=== PATIENT | male | born 1940 | race Caucasian/White ===

== ENCOUNTER 2019-05-29 18:15 | Inpatient (IN) | payer BC, OTHER ==
--- NOTE | 2019-05-29 18:51 | PDOC ---
History of Present Illness - General Chief Complaint: Altered Mental Status Stated Complaint: AMS Time Seen by Provider: 05/29/19 18:51 History Source: Patient, Family Exam Limitations: Clinical Condition, Dementia - History of Present Illness Initial Comments: 79 year old male with PMH dementia (baseline A&Ox0, able to recognize family members), HTN, HLD, NIDDM, CVA BIBA to ED for increasing AMS x2-3 days. at bedside reported that pt has been increasingly aggressive, unable to recognize her, unable to answer questions appropriately the last 2-3 days. reported pt became so aggressive tonight that she had to call EMS, when EMS arrived he was physically aggressive, was given Ketamine 250 mg IM. Pt is alert, oriented x0, unable to answer questions appropriately, unable to follow commands. Family at bedside reported no recent illness, cough, runny nose, sore throat, abdominal pain, nausea, vomiting, diarrhea, constipation. PCP: Tarsha FELIZ - unable to complete 2/2 pt's dementia/AMS PE Constitutional: Well-nourished, Well-developed, appearing stated age. HEENT: head is normocephalic, atraumatic. EOMI. PERRLA. Neck: supple. Full ROM. no midline c-spine tenderness to palpation. no step offs. Cardiovascular: regular heart rhythm. no murmurs. no pericardial friction rub. Respiratory: clear to auscultation bilaterally. no crackles, rhonchi or wheezing. no stridor. Gastrointestinal: soft, flat. tenderness to palpation of suprapubic area. normal bowel sounds. no rebound, guarding, masses. Back: no midline tenderness to palpation of T-spine or L-spine. No step offs. Extremities: peripheral pulses intact. no lower extremity edema. Neurological: CN 2-12 grossly intact. moves all four extremities. Psych: awake, alert, oriented x0. does not follow commands. does not answer questions appropriately. Past History - Past Medical History Allergies/Adverse Reactions: Allergies Allergy/AdvReac Type Severity Reaction Status Date / Time No Known Allergies Allergy Verified 05/29/19 18:41 Home Medications: Ambulatory Orders Glimepiride [Amaryl -] 4 mg PO BID 05/29/19 Levothyroxine [Synthroid -] 50 mcg PO DAILY 05/29/19 Lisinopril [Prinivil] 10 mg PO DAILY 05/29/19 Omeprazole 40 mg PO DAILY 05/29/19 Quetiapine Fumarate [Seroquel -] 25 mg PO BID 05/29/19 Simvastatin [Zocor] 20 mg PO HS 05/29/19 Vit B1 Mn/B2/B3/B5/B6/B12/C/FA [B Complex with Vitamin C Tab] 1 each PO DAILY metFORMIN HCL [Metformin ER Gastric] 500 mg PO BID 05/29/19 - Psycho Social/Smoking Cessation Hx Smoking History: Smoker current status UNK Have you smoked in the past 12 months: No Information on smoking cessation initiated: No Hx Alcohol Use: No Drug/Substance Use Hx: No *Physical Exam - Vital Signs Last Vital Signs Temp Pulse Resp BP Pulse Ox 100.1 F H 112 H 18 135/76 96 05/29/19 18:42 05/29/19 18:42 05/29/19 18:42 05/29/19 18:42 05/29/19 18:42 ED Treatment Course - LABORATORY CBC & Chemistry Diagram: 05/29/19 19:30 05/29/19 19:30 Medical Decision Making - Medical Decision Making 79 year old male with above PMH presented to ED via ambulance for increasing altered mental status x2-3 days. Initial Vital Signs Temp Pulse Resp BP Pulse Ox 100.1 F H 112 H 18 135/76 96 05/29/19 18:42 05/29/19 18:42 05/29/19 18:42 05/29/19 18:42 05/29/19 18:42 Febrile. Tachycardic. No tachypnea. Mild hypertension. No hypoxia on room air. EKG performed at 1848: rate 102, regular rhythm, normal axis, normal intervals, flat T in AVL, no other ST changes. -No prior to compare Imaging ordered: CXR, CT head Medications ordered: normal saline bolus 1000 cc once, tylenol IV 05/29/19 20:07 CBC WBC 18.3 K/mm3 (4.0-10.0) H 05/29/19 19:30 RBC 3.83 M/mm3 (4.00-5.60) L 05/29/19 19:30 Hgb 11.4 GM/dL (11.7-16.9) L 05/29/19 19:30 Hct 34.4 % (35.4-49) L 05/29/19 19:30 MCV 89.8 fl (80-96) 05/29/19 19:30 MCH 29.7 pg (25.7-33.7) 05/29/19 19:30 MCHC 33.1 g/dl (32.0-35.9) 05/29/19 19:30 RDW 13.4 % (11.9-15.9) 05/29/19 19:30 Plt Count 300 K/MM3 (134-434) 05/29/19 19:30 MPV 9.3 fl (7.5-11.1) 05/29/19 19:30 Absolute Neuts (auto) 15.6 K/mm3 (1.5-8.0) H 05/29/19 19:30 Neutrophils % 85.2 % (42.8-82.8) H 05/29/19 19:30 Lymphocytes % 7.5 % (8-40) L 05/29/19 19:30 Monocytes % 6.7 % (3.8-10.2) 05/29/19 19:30 Eosinophils % 0.2 % (0-4.5) 05/29/19 19:30 Basophils % 0.4 % (0-2.0) 05/29/19 19: Nucleated RBC % 0 % (0-0) 05/29/19 19:30 Leukocytosis with left shift. Normocytic anemia. 05/29/19 19:30 VBG pH 7.40 POC VBG pCO2 41.7 POC VBG pO2 < 49 H VBG HCO3 25.3 VBG O2 Sat (Luciana) 80.4 H VBG Base Excess 0.9 No acidosis. 05/29/19 20:35 CMP Sodium 137 mmol/L (136-145) 05/29/19 19:30 Potassium 4.3 mmol/L (3.5-5.1) 05/29/19 19:30 Chloride 106 mmol/L (98-107) 05/29/19 19:30 Carbon Dioxide 26 mmol/L (21-32) 05/29/19 19:30 Anion Gap 5 MMOL/L (8-16) L 05/29/19 19:30 BUN 16.6 mg/dL (7-18) 05/29/19 19:30 Creatinine 1.0 mg/dL (0.55-1.3) 05/29/19 19:30 Est GFR (CKD-EPI)AfAm 82.60 05/29/19 19:30 Est GFR (CKD-EPI)NonAf 71.27 05/29/19 19:30 Random Glucose 79 mg/dL (74-106) 05/29/19 19:30 Lactic Acid 1.2 mmol/L (0.4-2.0) 05/29/19 19:30 Calcium 8.2 mg/dL (8.5-10.1) L 05/29/19 19:30 Total Bilirubin 0.6 mg/dL (0.2-1) 05/29/19 19:30 AST 11 U/L (15-37) L 05/29/19 19:30 ALT 14 U/L (13-61) 05/29/19 19:30 Alkaline Phosphatase 53 U/L (45-117) 05/29/19 19:30 Total Protein 5.8 g/dl (6.4-8.2) L 05/29/19 19:30 Albumin 3.8 g/dl (3.4-5.0) 05/29/19 19:30 No electrolyte abnormalities. No transaminitis. No ANDRE. No lactic acidosis. Acetaminophen level negative. ETOH level negative. Pending CT and UA. CXR shows no infiltrate by my view. -Pending official report 05/29/19 20:58 Pt became agitated at CT, removed his IV, was throwing things around the room, would not follow the son's commands. Pt returned to ED, will replace IV. Medications ordered: Haldol 5 mg IM once, normal saline bolus 1000 cc once 05/29/19 23:31 Pt became increasingly agitated, had not received IM Haldol. Medications given: Haldol 5 mg IM, ativan 2 mg IM once IV placed into left upper arm. CT head performed. CMP Sodium 137 mmol/L (136-145) 05/29/19 19:30 Potassium 4.3 mmol/L (3.5-5.1) 05/29/19 19:30 Chloride 106 mmol/L (98-107) 05/29/19 19:30 Carbon Dioxide 26 mmol/L (21-32) 05/29/19 19:30 Anion Gap 5 MMOL/L (8-16) L 05/29/19: BUN 16.6 mg/dL (7-18) 05/29/19: Creatinine 1.0 mg/dL (0.55-1.3) 05/29/19: Est GFR (CKD-EPI)AfAm 82.60 05/29/19: Est GFR (CKD-EPI)NonAf 71.27 05/29/19: Random Glucose 79 mg/dL (74-106) 05/29/19: Lactic Acid 1.2 mmol/L (0.4-2.0) 05/29/19: Calcium 8.2 mg/dL (8.5-10.1) L 05/29/19 Total Bilirubin 0.6 mg/dL (0.2-1) 05/29/19 AST 11 U/L (15-37) L 05/29/19: ALT 14 U/L (13-61) 05/29/19 Alkaline Phosphatase 53 U/L (45-117) 05/29/19: Troponin I < 0.02 ng/ml (0.00-0.05) 05/29/19 Total Protein 5.8 g/dl (6.4-8.2) L 05/29/19: Albumin 3.8 g/dl (3.4-5.0) 05/29/19: TSH 3.09 uIU/ml (0.358-3.74) 05/29/19: No electrolyte abnormalities. No ANDRE. No transamintiis. No lactic acidosis. Troponin wnl. TSH wnl. Urine Test Results Urine Color Yellow 05/29/19: Urine Appearance Clear 05/29/19: Urine pH 5.5 (5.0-8.0) 05/29/19: Ur Specific [place] 1.011 (1.010-1.035) 05/29/19 22:30 Urine Protein Negative (NEGATIVE) 05/29/19:30 Urine Glucose (UA) Negative (NEGATIVE) 05/29/19 22:30 Urine Ketones Negative (NEGATIVE) 05/29/19 22: Urine Blood Negative (NEGATIVE) 11/21/19 22:30 Urine Nitrite Negative (NEGATIVE) 05/29/19 22:30 Urine Bilirubin Negative (NEGATIVE) 05/29/19 22:30 Ur Leukocyte Esterase Negative (NEGATIVE) 05/29/19 22:30 Negative for UTI. Pt is febrile, and altered. Will need to perform LP. CT head report pending. 05/29/19 23:51 Consent obtained from at bedside and Daughter over the phone (Juanita Quiñones [phone]) for procedural sedation and LP. -Daughter requests to be called with preliminary results CT head report: Referring Physician: SULLY LAKHANI Patient Name: DARON QUIÑONES THIS IS A PRELIMINARY REPORT FROM [facility] DATE OF SERVICE: 2019-05-29 22:42:08 IMAGES: [id number] EXAM: HEAD CT WITHOUT CONTRAST HISTORY: Altered mental status. COMPARISON: None. FINDINGS: Limited exam due to motion. No evidence for acute intracranial hemorrhage or acute large vessel territory ischemia. Chronic ischemic small vessel disease with global volume loss. No hydrocephalus. No extra-axial fluid collection. No acute calvarial abnormalities. One or more of the following dose reduction techniques were used: automated exposure control, adjustment of the mA and/or kV according to patient size, use of iterative reconstructive technique. THIS DOCUMENT HAS BEEN ELECTRONICALLY SIGNED Becca Torres MD 05/29/2019 23:42 EST Medications ordered: Ceftriaxone 2g IV once, Vancomycin 1g IV once, Ampicillin 2g IV once, Acyclovir 600 mg IV once Pt signed out to Dr. Holland. Pending LP. Discharge - Discharge Information Problems reviewed: Yes Clinical Impression/Diagnosis: AMS (altered mental status), Fever, Leukocytosis Condition: Stable - Admission Yes - Follow up/Referral Referrals: Mickey Gallegos MD [Primary Care Provider] - - Patient Discharge Instructions - Post Discharge Activity
[2019-05-29] MEDS ORDERED: ACETAMINOPHEN 1000 MG/100 ML VIAL (NON FORMULARY) IVPB ONE (19:34)
[2019-05-29] MEDS ORDERED: SODIUM CHLORIDE 1,000 ML IV STA ×2 (19:34→21:18)
[2019-05-29] MEDS ORDERED: ACETAMINOPHEN INJECTION 100 ML IVPB ONE (19:45)
[2019-05-29 19:56] LABS: BASO % 0.4 % (0-2.0); EOS % 0.2 % (0-4.5); HEMATOCRIT 34.4 % (35.4-49); HEMOGLOBIN 11.4 GM/dL (11.7-16.9); LYMPH % 7.5 % (8-40); MCH 29.7 pg (25.7-33.7); MCHC 33.1 g/dl (32.0-35.9); MEAN CELL VOLUME 89.8 fl (80-96); MEAN PLT VOLUME 9.3 fl (7.5-11.1); MONO % 6.7 % (3.8-10.2); NEUT % 85.2 % (42.8-82.8); PLATELET COUNT 300 K/MM3 (134-434); RBC 3.83 M/mm3 (4.00-5.60); RDW 13.4 % (11.9-15.9); VENOUS PC02 41.7 mmHg (38-52); WHITE BLOOD COUNT 18.3 K/mm3 (4.0-10.0)
[2019-05-29 19:57] LABS: VENOUS PO2 < 49 mmHg (28-48)
--- NOTE | 2019-05-29 20:20 | PDOC ---
Attending Attestation - Resident Resident Name: Myranda Hoskins - ED Attending Attestation I have performed the following: I have examined & evaluated the patient, The case was reviewed & discussed with the resident, I agree w/resident's findings & plan, Exceptions are as noted - HPI HPI: 05/29/19 20:16 Agree with resident HPI - Physicial Exam PE: 05/29/19 20:16 Agree with resident exam - Medical Decision Making 05/29/19 20:17 Patient has history of dementia, p/w acute worsening of temperament, becoming more aggressive and agitated and an episode of urinary incontinence. Likely infectious cause exacerbating fragile mental status eval for broadly for infection f/u labs, ua, imaging dispo per clinical course, likely admission Contact Daughter: Juanita Quiñones [phone]
[2019-05-29 20:29] LABS: ALBUMIN 3.8 g/dl (3.4-5.0); ALK PHOS 53 U/L (45-117); ANION GAP 5 MMOL/L (8-16); BILIRUBIN,TOTAL 0.6 mg/dL (0.2-1); BLOOD UREA NITROGEN 16.6 mg/dL (7-18); CALCIUM 8.2 mg/dL (8.5-10.1); CHLORIDE 106 mmol/L (98-107); CO2 26 mmol/L (21-32); GLUCOSE,RANDOM 79 mg/dL (74-106); POTASSIUM 4.3 mmol/L (3.5-5.1); SGOT/AST 11 U/L (15-37); SGPT/ALT 14 U/L (13-61); SODIUM 137 mmol/L (136-145); TOT PROT 5.8 g/dl (6.4-8.2)
[2019-05-29] MEDS ORDERED: HALOPERIDOL LACTATE 5 MG/ML IM ONE (21:12)
[2019-05-29] MEDS ORDERED: HALOPERIDOL LACTATE 5 MG/ML ONE (22:09)
[2019-05-29] MEDS ORDERED: LORazepam 2 MG/ML SDV VIAL ONE (22:12)
[2019-05-29 22:43] LABS: PH,URINE 5.5 (5.0-8.0); URINE APPEARANCE CLEAR; URINE BILIRUBIN NEGATIVE (NEGATIVE); URINE COLOR YELLOW; URINE GLUCOSE (UA) NEGATIVE (NEGATIVE); URINE KETONE NEGATIVE (NEGATIVE); URINE LEUK ESTERASE NEGATIVE (NEGATIVE); URINE NITRITE NEGATIVE (NEGATIVE); URINE PROTEIN NEGATIVE (NEGATIVE)
[2019-05-29] MEDS ORDERED: PIPERACILLIN/TAZOB 4.5 GM 4.5 GM in DEXTROSE 5%-WATER 100 ML IVPB ONE (23:35)
[2019-05-29] MEDS ORDERED: VANCOMYCIN 1,000 MG in DEXTROSE 5%-WATER - 250 ML IVPB ONE (23:35)
[2019-05-29] MEDS ORDERED: ACYCLOVIR INJECTION 600 MG in DEXTROSE 5%-WATER - 100 ML IVPB ONE (23:57)
[2019-05-29] MEDS ORDERED: VANCOMYCIN 1 GRAM (PRE-DOCKED) 1,000 MG/250 ML BAG IVPB ONE (23:59)
[2019-05-29] MEDS ORDERED: PIPERACILLIN/TAZOB 3.375 GM 3.375 GM/50 ML BAG IVPB ONE (23:59)
[2019-05-30] MEDS ORDERED: AMPICILLIN - 2 GM in SODIUM CHLORIDE 100 ML IVPB ONE (00:02)
[2019-05-30] MEDS ORDERED: CEFTRIAXONE 2 GM-D5W BAG 2 GM/50 ML BAG IVPB ONE (00:02)
--- NOTE | 2019-05-30 00:27 | PDOC ---
*Physical Exam - Vital Signs Last Vital Signs Temp Pulse Resp BP Pulse Ox 100.1 F H 112 H 18 135/76 97 05/29/19 18:42 05/29/19 18:42 05/29/19 18:42 05/29/19 18:42 05/29/19 19:55 ED Treatment Course - LABORATORY CBC & Chemistry Diagram: 05/29/19 19:30 05/29/19 19:30 - ADDITIONAL ORDERS Additional order review: Laboratory Results 05/29/19 05/29/19 05/29/19 22:30 19:30 19:30 VBG pH 7.40 POC VBG pCO2 41.7 POC VBG pO2 < 49 H VBG HCO3 25.3 VBG O2 Sat (Luciana) 80.4 H VBG Base Excess 0.9 Sodium Potassium Chloride Carbon Dioxide Anion Gap BUN Creatinine Est GFR (CKD-EPI)AfAm Est GFR (CKD-EPI)NonAf Random Glucose Lactic Acid Calcium Total Bilirubin AST ALT Alkaline Phosphatase Troponin I Total Protein Albumin TSH Urine Color Yellow Urine Appearance Clear Urine pH 5.5 Ur Specific [place] 1.011 Urine Protein Negative Urine Glucose (UA) Negative Urine Ketones Negative Urine Blood Negative Urine Nitrite Negative Urine Bilirubin Negative Urine Urobilinogen 1.0 Ur Leukocyte Esterase Negative Salicylates Acetaminophen Alcohol, Quantitative Blood Type O POSITIVE Antibody Screen Negative 05/29/19 05/29/19 05/29/19 19:30 19:30 19:30 VBG pH POC VBG pCO2 POC VBG pO2 VBG HCO3 VBG O2 Sat (Luciana) VBG Base Excess Sodium 137 Potassium 4.3 Chloride 106 Carbon Dioxide 26 Anion Gap 5 L BUN 16.6 Creatinine 1.0 Est GFR (CKD-EPI)AfAm 82.60 Est GFR (CKD-EPI)NonAf 71.27 Random Glucose 79 Lactic Acid 1.2 Calcium 8.2 L Total Bilirubin 0.6 AST 11 L ALT 14 Alkaline Phosphatase 53 Troponin I < 0.02 Total Protein 5.8 L Albumin 3.8 TSH 3.09 Urine Color Urine Appearance Urine pH Ur Specific [place] Urine Protein Urine Glucose (UA) Urine Ketones Urine Blood Urine Nitrite Urine Bilirubin Urine Urobilinogen Ur Leukocyte Esterase Salicylates Acetaminophen Alcohol, Quantitative < 3.0 Blood Type Antibody Screen 05/29/19 19:30 VBG pH POC VBG pCO2 POC VBG pO2 VBG HCO3 VBG O2 Sat (Luciana) VBG Base Excess Sodium Potassium Chloride Carbon Dioxide Anion Gap BUN Creatinine Est GFR (CKD-EPI)AfAm Est GFR (CKD-EPI)NonAf Random Glucose Lactic Acid Calcium Total Bilirubin AST ALT Alkaline Phosphatase Troponin I Total Protein Albumin TSH Urine Color Urine Appearance Urine pH Ur Specific [place] Urine Protein Urine Glucose (UA) Urine Ketones Urine Blood Urine Nitrite Urine Bilirubin Urine Urobilinogen Ur Leukocyte Esterase Salicylates < 1.7 L Acetaminophen <2.0 Alcohol, Quantitative Blood Type Antibody Screen 05/29/19 19:30 RBC 3.83 L MCV 89.8 MCHC 33.1 RDW 13.4 MPV 9.3 Neutrophils % 85.2 H Lymphocytes % 7.5 L Monocytes % 6.7 Eosinophils % 0.2 Basophils % 0.4 - Medications Given in the ED: ED Medications Discontinued Medications Generic Name Dose Route Start Last Admin Trade Name Freq PRN Reason Stop Dose Admin Acetaminophen 1,000 mg 05/29/19 19:34 05/29/19 19:52 Ofirmev Injection - IVPB 05/29/19 19:35 1,000 mg ONCE ONE Administration Haloperidol 5 mg 05/29/19 21:12 05/29/19 22:15 Haldol Injection (Fast Acting) - IM 05/29/19 21:13 5 mg ONCE ONE Administration Sodium Chloride 1,000 mls @ 1,000 mls/hr 05/29/19 19:34 05/29/19 19:52 Normal Saline - IV 05/29/19 20:33 1,000 mls/hr ASDIR STA Administration Sodium Chloride 1,000 mls @ 1,000 mls/hr 05/29/19 21:18 05/29/19 23:11 Normal Saline - IV 05/29/19 22:17 1,000 mls/hr ASDIR STA Administration Piperacillin Sod/Tazobactam 100 mls @ 200 mls/hr 05/29/19 23:35 05/30/19 00: 02 Sod 4.5 gm/ Dextrose IVPB 05/30/19 00:04 200 mls/hr ONCE ONE Administration Protocol Lorazepam 2 mg 05/29/19 22:12 05/29/19 22:15 Ativan Injection - IM 05/29/19 22:13 2 mg ONCE ONE Administration Medical Decision Making - Medical Decision Making 05/30/19 00:27 Sign out received from Dr Hoskins. Destiney Quiñones is a 79yo with a PMH of dementia (baseline A&Ox0, able to recognize family members), HTN, HLD, NIDDM, and CVA who was BIBA for altered mental status. ED course so far notable for: - Febrile and tachycardic on arrival. Given acetaminophen and normal saline - Labs notable for leukocytosis to 18 - Pt became agitated, was given haldol 5mg IV twice, 2mg ativan. Placed in 4 point restraints for safety as he was attempting to climb out of bed - CT head without acute abnormalities appreciated 05/30/19 01:38 - The decision was made to perform a lumbar puncture given AMS, fever, and otherwise unremarkable results - The patient's signed written consent after discussion of risks and benefits with Dr Hoskins - The patient was positioned, prepped and draped in sterile fashion, and the LP was completed by myself under supervision of Dr Mcgrath. CSF was noted to be clear. No complications were appreciated, please see procedure note. 05/30/19 03:15 - CSF notable for slightly high protein at 52, but otherwise unremarkable - Sign out given to Dr Alonzo. Will accept to Dr Joiner's service on med/surg Discussed with Dr David Holland PGY2 Discharge - Discharge Information Problems reviewed: Yes Clinical Impression/Diagnosis: AMS (altered mental status) Qualifiers: Altered mental status type: disorientation Qualified Code(s): R41.0 - Disorientation, unspecified Fever Qualifiers: Fever type: unspecified Qualified Code(s): R50.9 - Fever, unspecified Leukocytosis Qualifiers: Leukocytosis type: unspecified Qualified Code(s): D72.829 - Elevated white blood cell count, unspecified Condition: Stable - Admission Yes - Follow up/Referral - Patient Discharge Instructions - Post Discharge Activity Procedures - Lumbar Puncture Indication: AMS, Fever CT Scan: Yes Betadine Prep: Yes Position: Left lateral decubitus Site: L4-L51 Local Anesthesia: 1% Lidocaine with epi Volume(ml): 1 Lumbar Puncture Kit: Adult Opening Pressure(mmHg): 11 Traumatic Tap: No Tubes Obtained: 4 Clear Fluid: Yes Complications: No
[2019-05-30] MEDS ORDERED: MIDAZOLAM HCL 2 MG/2 ML SINGLE DOSE VIAL IVPUSH ONE (00:41)
[2019-05-30] MEDS ORDERED: MIDAZOLAM HCL 2 MG/2 ML SINGLE DOSE VIAL ONE (00:47)
[2019-05-30] MEDS ORDERED: AMPICILLIN SODIUM 2 GM VIAL ONE (00:47)
[2019-05-30] MEDS ORDERED: CEFTRIAXONE 2 GM/100 ML BAG IVPB ONE (00:48)
--- NOTE | 2019-05-30 02:21 | PN ---
Teaching Attending Note Name of Resident: Will Teixeira ATTENDING PHYSICIAN STATEMENT I saw and evaluated the patient. I reviewed the resident's note and discussed the case with the resident. I agree with the resident's findings and plan as documented. SUBJECTIVE: Patient is a 79 year old man with PMH of Dementia (only able to recognize family members), HTN, HLD, NIDDM and CVA BIBA to ER for increasing AMS x2-3 days. at bedside reported that patient has been increasingly aggressive, unable to recognize her, unable to answer questions appropriately for the last 2 -3 days. Patient became so aggressive tonight and she had to call EMS, when EMS arrived he was physically aggressive, was given Ketamine 250 mg IM. He is alert , disoriented, unable to answer questions appropriately and unable to follow commands. Family at bedside reported no recent illness, cough, runny nose, sore throat, abdominal pain, nausea, vomiting, diarrhea or constipation. No tobacco, alcohol or illicit drug use. No recent sick contacts. Travelled to [place] in February. Got his Flu shot. Father had prostate cancer. OBJECTIVE: Alert Vital Signs Period Temp Pulse Resp BP Sys/Sauceda Pulse Ox Last 24 Hr 100.1 F 112 18 135/76 96-97 HEENT: No Jaundice, eye redness or discharge, PERRLA, EOMI. Normocephalic, atraumatic. External ears are normal and hearing is grossly intact. No nasal discharge. Neck: Supple, nontender. No palpable adenopathy or thyromegaly. No JVD Chest: Good effort. Clear to auscultation and percussion. Heart: Regular. No S3, rub or murmur Abdomen: Not distended, soft, nontender and no HSM. No rebound or guarding. Normal bowel sounds. Ext: Peripheral pulses intact. No leg edema. Skin: Warm and dry. No petechiae, rash or ecchymosis. Neuro: Alert. Oriented x3. CN 2-12 grossly intact. Sensation grossly intact in all four extremities and DTR are symmetric. Psych: Appropriate mood and affect. Good insight. Home Medications Medication Instructions Recorded Glimepiride [Amaryl -] 4 mg PO BID 05/29/19 Levothyroxine [Synthroid -] 50 mcg PO DAILY 05/29/19 Lisinopril [Prinivil] 10 mg PO DAILY 05/29/19 Omeprazole 40 mg PO DAILY 05/29/19 Quetiapine Fumarate [Seroquel -] 25 mg PO BID 05/29/19 Simvastatin [Zocor] 20 mg PO HS 05/29/19 Vit B1 Mn/B2/B3/B5/B6/B12/C/FA [B 1 each PO DAILY 05/29/19 Complex with Vitamin C Tab] metFORMIN HCL [Metformin ER 500 mg PO BID 05/29/19 Gastric] Abnormal Lab Results 05/29/19 05/29/19 05/29/19 19:30 19:30 19:30 WBC 18.3 H RBC 3.83 L Hgb 11.4 L Hct 34.4 L Absolute Neuts (auto) 15.6 H Neutrophils % 85.2 H Lymphocytes % 7.5 L POC VBG pO2 VBG O2 Sat (Luciana) Anion Gap 5 L Calcium 8.2 L AST 11 L Total Protein 5.8 L Salicylates < 1.7 L 05/29/19 19:30 WBC RBC Hgb Hct Absolute Neuts (auto) Neutrophils % Lymphocytes % POC VBG pO2 < 49 H VBG O2 Sat (Luciana) 80.4 H Anion Gap Calcium AST Total Protein Salicylates ASSESSMENT AND PLAN: 1. Sepsis and AMS - No acute abnormality on head CT and on CXR. Spinal fluid analysis showed increased protein (52) and patient has been started on empiric regimen for meningitis pending further analysis for common viruses and bacterial culture - on vancomycin, rocephin, ampicillin and acyclovir. Will isolate him pending results of CSF analysis. EKG shows sinus tachycardia with no significant ST-T wave changes. Will continue comprehensive care for all of patients comorbid conditions. 2. DM For now, we will hold the home diabetes drugs and implement sliding scale insulin regimen. Provide comprehensive diabetes care with patient teaching and counseling about the importance of adherence to prescribed diabetes regimen, euglycemia, eye care and foot care. 3. Hypertension - Restart suitable outpatient antihypertensive drugs when clinically appropriate. Revise regimen to ensure [id number] excellent BP control and in house counsel patient on the injurious effects of uncontrolled hypertension. Nonpharmacologic measures to control hypertension like weight loss , salt restriction and exercise discussed. Importance of adherence to treatment regimen and attainment of normotension emphasized. 4. DVT prophylaxis - Lovenox 40 mg SQ q 24 hours. 5. Advance directives - Full code
[2019-05-30 03:13] LABS: CSF APPEARANCE CLEAR; CSF COLOR COLORLESS; CSF WBC 5
[2019-05-30 03:20] LABS: BF GLUCOSE (CSF ONLY) 53 mg/dL (40-70)
--- NOTE | 2019-05-30 05:02 | HP ---
CHIEF COMPLAINT: AMS PCP: Dr. Singh HISTORY OF PRESENT ILLNESS: This is a 79 y/o M with a PMHx of dementia (1 yr), ETOH abuse (quit 3 mths ago was drinking pint vodka 2Xwk), HTN, NIDDM, HLD, and CVA BIBA via EMS with his due to AMS and aggression. Per , pt has been increasingly agitated for the past two days. He was unable to recognize his or answer any of her questions. He was overly aggressive, including screaming and throwing objects, which prompted the to call 911. In route to the ED, pt received 250 of Ketamine. Per , pt had SHEPHERD, sob, fever, and stiff neck at this time. She reports recent travel to [facility] in february, however denies any sick contacts while there. He denied any cp, chills, diarrhea, abd pain, dysuria, bowel/bladder complaints. Notable in his past family hx is that his father had prostate CA. Pt is up to date on his immunizations including flu shot. Pt's unaware if he received pneumonia shot. ER course was notable for: (1) 5mg Haldol IM, Ativan 2mg given for agitation (2) CT head negative (3) Ampicillin, acyclovir, ceftriaxone, vanco, zosyn given Social History: Smoking: denies Alcohol: as in HPI Drugs: Allergies No Known Allergies Allergy (Verified 05/29/19 18:41) HOME MEDICATIONS: Home Medications Medication Instructions Recorded Glimepiride [Amaryl -] 4 mg PO BID 05/29/19 Levothyroxine [Synthroid -] 50 mcg PO DAILY 05/29/19 Lisinopril [Prinivil] 10 mg PO DAILY 05/29/19 Omeprazole 40 mg PO DAILY 05/29/19 Quetiapine Fumarate [Seroquel -] 25 mg PO BID 05/29/19 Simvastatin [Zocor] 40 mg PO HS 05/29/19 Vit B1 Mn/B2/B3/B5/B6/B12/C/FA [B 1 each PO DAILY 05/29/19 Complex with Vitamin C Tab] metFORMIN HCL [Metformin ER 500 mg PO BID 05/29/19 Gastric] REVIEW OF SYSTEMS negative except in HPI PHYSICAL EXAMINATION Vital Signs - 24 hr 05/29/19 05/29/19 05/30/19 18:42 19:55 00:44 Temperature 100.1 F H Pulse Rate 112 H Pulse Rate [ 92 H Left] Respiratory 18 17 Rate Blood Pressure 135/76 Blood Pressure 156/67 [Right Arm] O2 Sat by Pulse 96 97 99 Oximetry (%) 05/30/19 05/30/19 01:44 02:42 Temperature Pulse Rate Pulse Rate [ 84 72 Left] Respiratory 17 18 Rate Blood Pressure Blood Pressure 144/75 146/68 [Right Arm] O2 Sat by Pulse 100 99 Oximetry (%) GENERAL: somnolent, non-responsive to commands HEAD: Normal with no signs of trauma. LUNGS: Breath sounds equal, clear to auscultation bilaterally. No wheezes, and no crackles. No accessory muscle use. HEART: Regular rate and rhythm, normal S1 and S2 without murmur, rub or gallop. ABDOMEN: Soft, nontender, not distended, normoactive bowel sounds, no guarding, no rebound, no masses. MUSCULOSKELETAL: Normal range of motion at all joints. No bony deformities or tenderness UPPER EXTREMITIES: 2+ pulses, warm, well-perfused. No cyanosis. No clubbing. No peripheral edema. LOWER EXTREMITIES: 2+ pulses, warm, well-perfused. No calf tenderness. No peripheral edema. NEUROLOGICAL: unable to assess without pt's cooperation, somnolent, wrist restraints in place, bruzkinsi, kernig sign negative PSYCHIATRIC: Non-cooperative. Laboratory Results - last 24 hr 05/29/19 05/29/19 05/29/19 19:30 19:30 19:30 WBC 18.3 H RBC 3.83 L Hgb 11.4 L Hct 34.4 L MCV 89.8 MCH 29.7 MCHC 33.1 RDW 13.4 Plt Count 300 MPV 9.3 Absolute Neuts (auto) 15.6 H Neutrophils % 85.2 H Lymphocytes % 7.5 L Monocytes % 6.7 Eosinophils % 0.2 Basophils % 0.4 Nucleated RBC % 0 VBG pH POC VBG pCO2 POC VBG pO2 VBG HCO3 VBG O2 Sat (Luciana) VBG Base Excess Sodium Potassium Chloride Carbon Dioxide Anion Gap BUN Creatinine Est GFR (CKD-EPI)AfAm Est GFR (CKD-EPI)NonAf Random Glucose Lactic Acid Calcium Total Bilirubin AST ALT Alkaline Phosphatase Troponin I Total Protein Albumin TSH 3.09 Urine Color Urine Appearance Urine pH Ur Specific [place] Urine Protein Urine Glucose (UA) Urine Ketones Urine Blood Urine Nitrite Urine Bilirubin Urine Urobilinogen Ur Leukocyte Esterase CSF Appearance CSF Color CSF WBC CSF RBC CSF Neutrophils CSF Lymphocytes CSF Eosinophils CSF Basophils CSF Macrophages CSF Plasma Cells CSF Diff Comment CSF Comment CSF Glucose CSF Total Protein Salicylates < 1.7 L Acetaminophen <2.0 Alcohol, Quantitative < 3.0 Blood Type Antibody Screen 05/29/19 05/29/19 05/29/19 19:30 19:30 19:30 WBC RBC Hgb Hct MCV MCH MCHC RDW Plt Count MPV Absolute Neuts (auto) Neutrophils % Lymphocytes % Monocytes % Eosinophils % Basophils % Nucleated RBC % VBG pH POC VBG pCO2 POC VBG pO2 VBG HCO3 VBG O2 Sat (Luciana) VBG Base Excess Sodium 137 Potassium 4.3 Chloride 106 Carbon Dioxide 26 Anion Gap 5 L BUN 16.6 Creatinine 1.0 Est GFR (CKD-EPI)AfAm 82.60 Est GFR (CKD-EPI)NonAf 71.27 Random Glucose 79 Lactic Acid 1.2 Calcium 8.2 L Total Bilirubin 0.6 AST 11 L ALT 14 Alkaline Phosphatase 53 Troponin I < 0.02 Total Protein 5.8 L Albumin 3.8 TSH Urine Color Urine Appearance Urine pH Ur Specific [place] Urine Protein Urine Glucose (UA) Urine Ketones Urine Blood Urine Nitrite Urine Bilirubin Urine Urobilinogen Ur Leukocyte Esterase CSF Appearance CSF Color CSF WBC CSF RBC CSF Neutrophils CSF Lymphocytes CSF Eosinophils CSF Basophils CSF Macrophages CSF Plasma Cells CSF Diff Comment CSF Comment CSF Glucose CSF Total Protein Salicylates Acetaminophen Alcohol, Quantitative Blood Type O POSITIVE Antibody Screen Negative 05/29/19 05/29/19 05/30/19 19:30 22:30 01:30 WBC RBC Hgb Hct MCV MCH MCHC RDW Plt Count MPV Absolute Neuts (auto) Neutrophils % Lymphocytes % Monocytes % Eosinophils % Basophils % Nucleated RBC % VBG pH 7.40 POC VBG pCO2 41.7 POC VBG pO2 < 49 H VBG HCO3 25.3 VBG O2 Sat (Luciana) 80.4 H VBG Base Excess 0.9 Sodium Potassium Chloride Carbon Dioxide Anion Gap BUN Creatinine Est GFR (CKD-EPI)AfAm Est GFR (CKD-EPI)NonAf Random Glucose Lactic Acid Calcium Total Bilirubin AST ALT Alkaline Phosphatase Troponin I Total Protein Albumin TSH Urine Color Yellow Urine Appearance Clear Urine pH 5.5 Ur Specific [place] 1.011 Urine Protein Negative Urine Glucose (UA) Negative Urine Ketones Negative Urine Blood Negative Urine Nitrite Negative Urine Bilirubin Negative Urine Urobilinogen 1.0 Ur Leukocyte Esterase Negative CSF Appearance Clear CSF Color Colorless CSF WBC 5 CSF RBC 1 CSF Neutrophils No Result Required. CSF Lymphocytes No Result Required. CSF Eosinophils No Result Required. CSF Basophils No Result Required. CSF Macrophages No Result Required. CSF Plasma Cells No Result Required. CSF Diff Comment No Result Required. CSF Comment No Result Required. CSF Glucose 53 CSF Total Protein 52 H Salicylates Acetaminophen Alcohol, Quantitative Blood Type Antibody Screen ASSESSMENT/PLAN: This is a 79 y/o M with a PMHx of dementia (1 yr), ETOH abuse (quit 3 mths ago was drinking pint vodka 2Xwk), HTN, NIDDM, HLD, and CVA BIBA via EMS with his due to AMS and aggression. #AMS -> in setting of Sepsis - wbc- 18.3, 100.1 temp, lactate normal, but meningitis is suspected infn at this time - ekg sinus tachy, cxr negative for acute pathology - CT head negative - BC, UA cx pending, UA negative - CSF analysis significant for elevated protein only. The rest of the panel is pending including WNV and echovirus - likely viral - sent HSV, HIV, EBV workup - ID consulted (Dr. Carranza) - continue with broad coverage- vanco, ceftazidime, acyclovir, ampicillin - isolation precautions at this time - npo until mental status improves - B12, RPR pending - TSH normal - PT eval requested #Normocytic Anemia - will send Fe studies - no signs of bleeding - stool guiac - unsure if chronic - Albumin/globulin ratio 1.9- may need o/p heme workup for malignancy #Hypocalcemia - Ca- 8.2 - will need Vit D and PTH - Po4 pending as can be due to hyperphosphatemia - could be related to patients acute sepsis - will rpt in AM - doubt rhabdo related will send cpk - total protein - low at 5.8 #HTN - continue lisinopril #HLD - continue zocor - obtain fasting lipid panel #IDDM - ISS - TIDAC #Hypothyroidism - c/w synthroid, TSH normal DVT PPX: 40 lovenox daily ANGELAI monitor lytes, IVF, npo for now, no GI ppx at this time Visit type - Emergency Visit Emergency Visit: Yes ED Registration Date: 05/30/19 Care time: The patient presented to the Emergency Department on the above date and was hospitalized for further evaluation of their emergent condition. - New Patient This patient is new to me today: Yes Date on this admission: 06/08/19 - Critical Care Critical Care patient: No ATTENDING PHYSICIAN STATEMENT I saw and evaluated the patient. I reviewed the resident's note and discussed the case with the resident. I agree with the resident's findings and plan as documented. SUBJECTIVE: OBJECTIVE: ASSESSMENT AND PLAN:
[2019-05-30 05:29] VITALS: BMI 21.1
[2019-05-30] MEDS: AMPICILLIN - 2 GM in SODIUM CHLORIDE 100 ML IVPB SCH ×3 (06:16→15:52)
[2019-05-30] MEDS ORDERED: DEXTROSE 50%-WATER - 25 GM/50 ML VIAL IVPUSH ONE (06:50)
[2019-05-30] MEDS ORDERED: DEXTROSE 50%-WATER 25 GM/50 ML DISP.SYRIN ONE (06:54)
[2019-05-30] MEDS: INSULIN SLIDING SCALE (NOVOLOG) 1 VIAL SQ SCH ×3 (07:13→17:56)
[2019-05-30 08:49] LABS: BASO % 0.5 % (0-2.0); EOS % 1.2 % (0-4.5); HEMATOCRIT 30.2 % (35.4-49); HEMOGLOBIN 10.3 GM/dL (11.7-16.9); LYMPH % 13.7 % (8-40); MCH 30.5 pg (25.7-33.7); MCHC 34.1 g/dl (32.0-35.9); MEAN CELL VOLUME 89.4 fl (80-96); MEAN PLT VOLUME 9.4 fl (7.5-11.1); MONO % 7.8 % (3.8-10.2); NEUT % 76.8 % (42.8-82.8); PLATELET COUNT 247 K/MM3 (134-434); RBC 3.38 M/mm3 (4.00-5.60); RDW 13.2 % (11.9-15.9); WHITE BLOOD COUNT 10.7 K/mm3 (4.0-10.0)
[2019-05-30 08:56] LABS: ALBUMIN 2.9 g/dl (3.4-5.0); BILIRUBIN,TOTAL 0.6 mg/dL (0.2-1); BLOOD UREA NITROGEN 10.8 mg/dL (7-18); CALCIUM 7.5 mg/dL (8.5-10.1); CREATININE 0.8 mg/dL (0.55-1.3); MAGNESIUM 1.2 mg/dL (1.8-2.4); PHOSPHOROUS 2.7 mg/dL (2.5-4.9); POTASSIUM 3.6 mmol/L (3.5-5.1); TOT PROT 4.8 g/dl (6.4-8.2)
--- NOTE | 2019-05-30 08:59 | PN ---
Progress Note (short form) - Note Progress Note: ID consult dictated imp/reccd 79 yo man with dementia admitted with fever and worsening agitation over the last several days wbc 18K in ED no source of fever, leukocytosisor agitation found no acute changed on Head ct LP in ER s/p LP with 5 wbc and protein of 52 given vanco/rocephin/amp/acyclovir plan continue ceftriaxone and antivirals f/u csf studies isolation 24 hours neurology consult ?seizures spoke with at bedside 1 year history of dementia he is forgetful- sometimes forgets her name!, able to eat by himself, toilets himself, goes out with her to the store no pets, they live in an apt on Sunday he became very confused, agitated and angry didnot eat no vomiting complained of headache at home- she gave him tylenol LP in ER top normal WBC but with constellation of symptoms and no explanation for acute change would continue empiric antibiotics and antivirals ?early HSV- consider MRI of head and EEG ?atypical seizures f/u cultures, serologies hiv, rpr, [place], hsv pcr should stay on IVF while on IV acyclovir d/c ampicillin and vancomycin, continue ceftriaxone and acyclovir
[2019-05-30 09:22] LABS: INR 1.21 (0.83-1.09); PROTHROMBIN TIME (PATIENT) 14.3 SEC (9.7-13.0)
[2019-05-30 09:24] LABS: ACTIVATED PTT 29.9 SECONDS (25.2-36.5)
[2019-05-30] MEDS ORDERED: CEFTAZIDIME PENTAHYDRATE 1 GM in DEXTROSE 5%-WATER - 50 ML IVPB SCH (10:00)
[2019-05-30] MEDS ORDERED: ACYCLOVIR 1000 MG (50MG/ML) VIAL IVPB SCH (10:00)
[2019-05-30] MEDS ORDERED: ACYCLOVIR INJECTION 680 MG in DEXTROSE 5%-WATER - 100 ML IVPB SCH (10:00)
[2019-05-30] MEDS ORDERED: cefTAZidime PENTAHYDRATE 1 GM/50ML PRE-DOCKED (RESTRICTED TO ID) IVPB SCH (10:00)
[2019-05-30] MEDS ORDERED: VANCOMYCIN 1 GM in D5W (PRE-DOCKED) 1,000 MG/250 ML IVPB SCH (10:00)
[2019-05-30] MEDS ORDERED: VANCOMYCIN 1 GRAM (PRE-DOCKED) 1,000 MG/250 ML BAG IVPB ONE (10:00)
[2019-05-30] MEDS: ENOXAPARIN NA (PORCINE) 40 MG/0.4 ML DISP.SYRIN SQ SCH (12:18)
[2019-05-30] MEDS ORDERED: PT OWN MED DRAWER 7, Y5N ONE ×2 (12:30→18:06)
[2019-05-30] MEDS: ACYCLOVIR INJECTION 600 MG in DEXTROSE 5%-WATER - 100 ML IVPB SCH ×2 (12:31→18:08)
[2019-05-30] MEDS: SODIUM CHLORIDE 1,000 ML IV SCH (12:31)
--- NOTE | 2019-05-30 13:06 | EKG ---
Test Reason : Blood Pressure : / mmHG Vent. Rate : 102 BPM Atrial Rate : 102 BPM P-R Int : 184 ms QRS Dur : 072 ms QT Int : 328 ms P-R-T Axes : 000 043 056 degrees QTc Int : 427 ms SINUS TACHYCARDIA WHEN COMPARED WITH ECG OF 03-JUL-2010 07:42, NO SIGNIFICANT CHANGE WAS FOUND Confirmed by EVA MARTINEZ MD ([id number]) on 05/30/2019 1:05:49 PM Referred By: Confirmed By:EVA MARTINEZ MD
--- NOTE | 2019-05-30 13:41 | PN ---
Progress Note (short form) - Note Progress Note: pt seen/ examined chart reviewed d/w pts daughter who is bedside awake periods of agitation poor historian Vital Signs Temp 98.5 F 05/30/19 06:00 Pulse 88 05/30/19 06:00 Resp 18 05/30/19 07:35 BP 131/68 05/30/19 06:00 Pulse Ox 99 05/30/19 07:35 Intake & Output 05/29/19 05/30/19 05/30/19 23:59 11:59 23:59 Intake Total 300 Balance 300 Weight 150 lb 135 lb Intake: IV 250 VANCOMYCIN (PRE-DOCKED) 1 250 ,000 mg In 250 ml @ 166. 667 mls/hr IVPB ONCE ONE Rx#:[id number] IVPB 50 Oral 0 Other: Voiding Method Incontinent Incontinent Bowel Movement No Height 5 ft 7 in 5 ft 7 in Body Mass Index (BMI) 23.5 21.1 Weight Measurement Method Standing Scale Weight Measurement Method Estimated by Staff Active Medications Enoxaparin Sodium (Lovenox -) 40 mg SQ DAILY [facility] Last Admin: 05/30/19 12:18 Dose: 40 mg Ampicillin Sodium 2 gm/ Sodium (Chloride) 100 mls @ 200 mls/hr IVPB Q4H-IV ARAVIND ; Protocol Last Admin: 05/30/19 12:18 Dose: 200 mls/hr Ceftriaxone Sodium 2 gm/ (Dextrose) 100 mls @ 100 mls/hr IVPB Q12H ARAVIND; Protocol Acyclovir 600 mg/ Dextrose 112 mls @ 112 mls/hr IVPB Q8H-IV ARAVIND Last Admin: 05/30/19 12:31 Dose: 112 mls/hr Sodium Chloride (Normal Saline -) 1,000 mls @ 83 mls/hr IV ASDIR ARAVIND Last Admin: 05/30/19 12:31 Dose: 83 mls/hr Insulin Aspart (Novolog Vial Sliding Scale -) 1 vial SQ TIDAC [facility]; Protocol Last Admin: 05/30/19 12:49 Dose: Not Given Levothyroxine Sodium (Synthroid -) 50 mcg PO DAILY [facility] Lisinopril (Prinivil) 10 mg PO DAILY [facility] Lorazepam (Ativan Injection -) 1 mg IM BID PRN PRN Reason: AGITATION Non-Formulary Medication (Omeprazole) 40 mg PO DAILY [facility] Non-Formulary Medication (Simvastatin [Zocor]) 40 mg PO HS ARAVIND Non-Formulary Medication (Vit B1 Mn/B2/B3/B5/B6/B12/C/Fa [B Complex With Vitamin C Tab]) 1 each PO DAILY ARAVIND Quetiapine Fumarate (Seroquel -) 25 mg PO TID ARAVIND Vancomycin HCl (Vancomycin (Pre-Docked)) 1,000 mg IVPB DAILY ARAVIND; Protocol CBC, BMP 05/30/19 07:50 05/30/19 07:50 Hepatic Panel Total Bilirubin 0.6 mg/dL (0.2-1) 05/30/19 07:50 AST 29 U/L (15-37) 05/30/19 07:50 ALT 16 U/L (13-61) 05/30/19 07:50 Alkaline Phosphatase 42 U/L (45-117) L 05/30/19 07:50 Albumin 2.9 g/dl (3.4-5.0) L 05/30/19 07:50 Microbiology 05/30/19 01:38 Gram Stain - Final Cerebral Spinal Fluid - Lumbar Puncture Physical Awake No distress Lungs- clear cvs- s1, s2 rrr abd- soft ext- no edema In summary 79 yo man with dementia/ Alcohol abuse-- Last drink few months ago as per Family admitted with fever and worsening agitation over the last several days A/p s/p LP Abx f/u cultures Continue present care Meds orders written-- varified with daughter -- abx f/u labs Neuro consult Hold po diabetic meds Monitor bgm will follow Ativan for agitaion D/w RN also Problem List - Problems (1) AMS (altered mental status) Code(s): R41.82 - ALTERED MENTAL STATUS, UNSPECIFIED Qualifiers: Altered mental status type: disorientation Qualified Code(s): R41.0 - Disorientation, unspecified (2) Fever Code(s): R50.9 - FEVER, UNSPECIFIED Qualifiers: Fever type: unspecified Qualified Code(s): R50.9 - Fever, unspecified (3) Leukocytosis Code(s): D72.829 - ELEVATED WHITE BLOOD CELL COUNT, UNSPECIFIED Qualifiers: Leukocytosis type: unspecified Qualified Code(s): D72.829 - Elevated white blood cell count, unspecified
[2019-05-30] MEDS ORDERED: DEXTROSE 5%-WATER 100 ML IVPB ONE (14:17)
[2019-05-30] MEDS: LORazepam 2 MG/ML SDV VIAL IM PRN (14:19)
--- NOTE | 2019-05-30 15:36 | CONSULT ---
Consultation: Neurology Consultation: Dr. Cabello REQUESTING PROVIDER: Dr. Goode CONSULT REQUEST: We have been asked to medically evaluate this patient for Altered mental status HISTORY OF PRESENT ILLNESS: 79 year old male with a history of dementia, ethanol abuse, hypertension, diabetes, hyperlipidemia, and prior history of CVA initially presented to the ED for several days of altered mental status, brought in with . Per report, patient started with a headache, fevers, and became aggressive with . He came in with fevers, elevated white count and tachycardia. Patient was empirically started on therapy for meningitis. Lumbar puncture was performed and found mildly elevated protein but unremarkable white count and negative gram stain. Other serologic studies are pending. Per nurse, patient just received ativan and is sleeping, being difficult to arouse. Patient denies any current complaints. There is reported recent travel to [place] with history of good ADLs. REVIEW OF SYSTEMS: Difficult to assess due to mental status. PHYSICAL EXAMINATION Vital Signs - 24 hr 05/29/19 05/29/19 05/30/19 18:42 19:55 00:44 Temperature 100.1 F H Pulse Rate 112 H Pulse Rate [ 92 H Left] Respiratory 18 17 Rate Blood Pressure 135/76 Blood Pressure 156/67 [Right Arm] O2 Sat by Pulse 96 97 99 Oximetry (%) 05/30/19 05/30/19 05/30/19 01:44 02:42 04:44 Temperature 98.5 F Pulse Rate 88 Pulse Rate [ 84 72 Left] Respiratory 17 18 18 Rate Blood Pressure 131/68 Blood Pressure 144/75 146/68 [Right Arm] O2 Sat by Pulse 100 99 Oximetry (%) 05/30/19 05/30/19 05/30/19 06:00 07:35 09:00 Temperature 98.5 F Pulse Rate 88 Pulse Rate [ Left] Respiratory 18 18 18 Rate Blood Pressure 131/68 Blood Pressure [Right Arm] O2 Sat by Pulse 99 99 Oximetry (%) 05/30/19 13:58 Temperature Pulse Rate Pulse Rate [ Left] Respiratory Rate Blood Pressure Blood Pressure [Right Arm] O2 Sat by Pulse 99 Oximetry (%) GENERAL: A&Ox1, tired appearing and going in and out of sleep EYES: PERRLA, EOMI ENT: Dry mucus membranes NECK: No JVD LUNGS: CTA, no wheezes HEART: mildly tachycardic, no murmurs ABDOMEN: Soft, nontender, BS present MUSCULOSKELETAL: No CVA Tenderness EXTREMITIES: 2+ pulses, no edema. Arms wrapped in SAMANTHA. NEUROLOGICAL: Cranial nerves II-XII intact. Motor strength and sensorium intact. Laboratory Results - last 24 hr 05/29/19 05/29/19 05/29/19 19:30 19:30 19:30 WBC 18.3 H RBC 3.83 L Hgb 11.4 L Hct 34.4 L MCV 89.8 MCH 29.7 MCHC 33.1 RDW 13.4 Plt Count 300 MPV 9.3 Absolute Neuts (auto) 15.6 H Neutrophils % 85.2 H Lymphocytes % 7.5 L Monocytes % 6.7 Eosinophils % 0.2 Basophils % 0.4 Nucleated RBC % 0 PT with INR INR PTT (Actin FS) VBG pH POC VBG pCO2 POC VBG pO2 VBG HCO3 VBG O2 Sat (Luciana) VBG Base Excess Sodium Potassium Chloride Carbon Dioxide Anion Gap BUN Creatinine Est GFR (CKD-EPI)AfAm Est GFR (CKD-EPI)NonAf POC Glucometer Random Glucose Lactic Acid Calcium Phosphorus Magnesium Iron TIBC Iron Saturation Unsaturated IBC Ferritin Total Bilirubin AST ALT Alkaline Phosphatase Creatine Kinase Creatine Kinase Index CK-MB (CK-2) Troponin I Total Protein Albumin TSH 3.09 Urine Color Urine Appearance Urine pH Ur Specific [place] Urine Protein Urine Glucose (UA) Urine Ketones Urine Blood Urine Nitrite Urine Bilirubin Urine Urobilinogen Ur Leukocyte Esterase CSF Appearance CSF Color CSF WBC CSF RBC CSF Neutrophils CSF Lymphocytes CSF Eosinophils CSF Basophils CSF Macrophages CSF Plasma Cells CSF Diff Comment CSF Comment CSF Glucose CSF Total Protein Salicylates < 1.7 L Acetaminophen <2.0 Alcohol, Quantitative < 3.0 HIV 1&2 Antibody Screen HIV P24 Antigen Blood Type Antibody Screen 05/29/19 05/29/19 05/29/19 19:30 19:30 19:30 WBC RBC Hgb Hct MCV MCH MCHC RDW Plt Count MPV Absolute Neuts (auto) Neutrophils % Lymphocytes % Monocytes % Eosinophils % Basophils % Nucleated RBC % PT with INR INR PTT (Actin FS) VBG pH POC VBG pCO2 POC VBG pO2 VBG HCO3 VBG O2 Sat (Luciana) VBG Base Excess Sodium 137 Potassium 4.3 Chloride 106 Carbon Dioxide 26 Anion Gap 5 L BUN 16.6 Creatinine 1.0 Est GFR (CKD-EPI)AfAm 82.60 Est GFR (CKD-EPI)NonAf 71.27 POC Glucometer Random Glucose 79 Lactic Acid 1.2 Calcium 8.2 L Phosphorus Magnesium Iron TIBC Iron Saturation Unsaturated IBC Ferritin Total Bilirubin 0.6 AST 11 L ALT 14 Alkaline Phosphatase 53 Creatine Kinase Creatine Kinase Index CK-MB (CK-2) Troponin I < 0.02 Total Protein 5.8 L Albumin 3.8 TSH Urine Color Urine Appearance Urine pH Ur Specific [place] Urine Protein Urine Glucose (UA) Urine Ketones Urine Blood Urine Nitrite Urine Bilirubin Urine Urobilinogen Ur Leukocyte Esterase CSF Appearance CSF Color CSF WBC CSF RBC CSF Neutrophils CSF Lymphocytes CSF Eosinophils CSF Basophils CSF Macrophages CSF Plasma Cells CSF Diff Comment CSF Comment CSF Glucose CSF Total Protein Salicylates Acetaminophen Alcohol, Quantitative HIV 1&2 Antibody Screen HIV P24 Antigen Blood Type O POSITIVE Antibody Screen Negative 05/29/19 05/29/19 05/30/19 19:30 22:30 01:30 WBC RBC Hgb Hct MCV MCH MCHC RDW Plt Count MPV Absolute Neuts (auto) Neutrophils % Lymphocytes % Monocytes % Eosinophils % Basophils % Nucleated RBC % PT with INR INR PTT (Actin FS) VBG pH 7.40 POC VBG pCO2 41.7 POC VBG pO2 < 49 H VBG HCO3 25.3 VBG O2 Sat (Luciana) 80.4 H VBG Base Excess 0.9 Sodium Potassium Chloride Carbon Dioxide Anion Gap BUN Creatinine Est GFR (CKD-EPI)AfAm Est GFR (CKD-EPI)NonAf POC Glucometer Random Glucose Lactic Acid Calcium Phosphorus Magnesium Iron TIBC Iron Saturation Unsaturated IBC Ferritin Total Bilirubin AST ALT Alkaline Phosphatase Creatine Kinase Creatine Kinase Index CK-MB (CK-2) Troponin I Total Protein Albumin TSH Urine Color Yellow Urine Appearance Clear Urine pH 5.5 Ur Specific [place] 1.011 Urine Protein Negative Urine Glucose (UA) Negative Urine Ketones Negative Urine Blood Negative Urine Nitrite Negative Urine Bilirubin Negative Urine Urobilinogen 1.0 Ur Leukocyte Esterase Negative CSF Appearance Clear CSF Color Colorless CSF WBC 5 CSF RBC 1 CSF Neutrophils No Result Required. CSF Lymphocytes No Result Required. CSF Eosinophils No Result Required. CSF Basophils No Result Required. CSF Macrophages No Result Required. CSF Plasma Cells No Result Required. CSF Diff Comment No Result Required. CSF Comment No Result Required. CSF Glucose 53 CSF Total Protein 52 H Salicylates Acetaminophen Alcohol, Quantitative HIV 1&2 Antibody Screen HIV P24 Antigen Blood Type Antibody Screen 05/30/19 05/30/19 05/30/19 06:42 07:50 07:50 WBC 10.7 H RBC 3.38 L Hgb 10.3 L Hct 30.2 L MCV 89.4 MCH 30.5 MCHC 34.1 RDW 13.2 Plt Count 247 MPV 9.4 Absolute Neuts (auto) 8.2 H Neutrophils % 76.8 Lymphocytes % 13.7 D Monocytes % 7.8 Eosinophils % 1.2 D Basophils % 0.5 Nucleated RBC % 0 PT with INR INR PTT (Actin FS) VBG pH POC VBG pCO2 POC VBG pO2 VBG HCO3 VBG O2 Sat (Luciana) VBG Base Excess Sodium 143 Potassium 3.6 Chloride 111 H Carbon Dioxide 28 Anion Gap 4 L BUN 10.8 Creatinine 0.8 Est GFR (CKD-EPI)AfAm 98.47 Est GFR (CKD-EPI)NonAf 84.96 POC Glucometer 41 Random Glucose 127 H Lactic Acid Calcium 7.5 L Phosphorus 2.7 Magnesium 1.2 L Iron TIBC Iron Saturation Unsaturated IBC Ferritin Total Bilirubin 0.6 AST 29 ALT 16 Alkaline Phosphatase 42 L Creatine Kinase 895 H Creatine Kinase Index 1.3 CK-MB (CK-2) 12.2 H Troponin I Total Protein 4.8 L Albumin 2.9 L TSH Urine Color Urine Appearance Urine pH Ur Specific [place] Urine Protein Urine Glucose (UA) Urine Ketones Urine Blood Urine Nitrite Urine Bilirubin Urine Urobilinogen Ur Leukocyte Esterase CSF Appearance CSF Color CSF WBC CSF RBC CSF Neutrophils CSF Lymphocytes CSF Eosinophils CSF Basophils CSF Macrophages CSF Plasma Cells CSF Diff Comment CSF Comment CSF Glucose CSF Total Protein Salicylates Acetaminophen Alcohol, Quantitative HIV 1&2 Antibody Screen HIV P24 Antigen Blood Type Antibody Screen 05/30/19 05/30/19 05/30/19 07:50 07:50 07:50 WBC RBC Hgb Hct MCV MCH MCHC RDW Plt Count MPV Absolute Neuts (auto) Neutrophils % Lymphocytes % Monocytes % Eosinophils % Basophils % Nucleated RBC % PT with INR 14.30 H INR 1.21 H PTT (Actin FS) 29.9 VBG pH POC VBG pCO2 POC VBG pO2 VBG HCO3 VBG O2 Sat (Luciana) VBG Base Excess Sodium Potassium Chloride Carbon Dioxide Anion Gap BUN Creatinine Est GFR (CKD-EPI)AfAm Est GFR (CKD-EPI)NonAf POC Glucometer Random Glucose Lactic Acid Calcium Phosphorus Magnesium Iron 63 TIBC 163 L Iron Saturation 38 Unsaturated IBC 100 L Ferritin 68.1 Total Bilirubin AST ALT Alkaline Phosphatase Creatine Kinase Creatine Kinase Index CK-MB (CK-2) Troponin I Total Protein Albumin TSH Urine Color Urine Appearance Urine pH Ur Specific [place] Urine Protein Urine Glucose (UA) Urine Ketones Urine Blood Urine Nitrite Urine Bilirubin Urine Urobilinogen Ur Leukocyte Esterase CSF Appearance CSF Color CSF WBC CSF RBC CSF Neutrophils CSF Lymphocytes CSF Eosinophils CSF Basophils CSF Macrophages CSF Plasma Cells CSF Diff Comment CSF Comment CSF Glucose CSF Total Protein Salicylates Acetaminophen Alcohol, Quantitative HIV 1&2 Antibody Screen Negative HIV P24 Antigen Negative Blood Type Antibody Screen 05/30/19 12:46 WBC RBC Hgb Hct MCV MCH MCHC RDW Plt Count MPV Absolute Neuts (auto) Neutrophils % Lymphocytes % Monocytes % Eosinophils % Basophils % Nucleated RBC % PT with INR INR PTT (Actin FS) VBG pH POC VBG pCO2 POC VBG pO2 VBG HCO3 VBG O2 Sat (Luciana) VBG Base Excess Sodium Potassium Chloride Carbon Dioxide Anion Gap BUN Creatinine Est GFR (CKD-EPI)AfAm Est GFR (CKD-EPI)NonAf POC Glucometer 61 Random Glucose Lactic Acid Calcium Phosphorus Magnesium Iron TIBC Iron Saturation Unsaturated IBC Ferritin Total Bilirubin AST ALT Alkaline Phosphatase Creatine Kinase Creatine Kinase Index CK-MB (CK-2) Troponin I Total Protein Albumin TSH Urine Color Urine Appearance Urine pH Ur Specific [place] Urine Protein Urine Glucose (UA) Urine Ketones Urine Blood Urine Nitrite Urine Bilirubin Urine Urobilinogen Ur Leukocyte Esterase CSF Appearance CSF Color CSF WBC CSF RBC CSF Neutrophils CSF Lymphocytes CSF Eosinophils CSF Basophils CSF Macrophages CSF Plasma Cells CSF Diff Comment CSF Comment CSF Glucose CSF Total Protein Salicylates Acetaminophen Alcohol, Quantitative HIV 1&2 Antibody Screen HIV P24 Antigen Blood Type Antibody Screen Active Medications Generic Name Dose Route Start Last Admin Trade Name Timothyq PRN Reason Stop Dose Admin Atorvastatin Calcium 20 mg 05/30/19 22:00 Lipitor - PO HS ARAVIND Enoxaparin Sodium 40 mg 05/30/19 10:00 05/30/19 12:18 Lovenox - SQ 40 mg DAILY ARAVIND Administration Ceftriaxone Sodium 2 gm/ 100 mls @ 100 mls/hr 05/30/19 13:00 Dextrose IVPB Q12H ARAVIND Protocol Acyclovir 600 mg/ Dextrose 112 mls @ 112 mls/hr 05/30/19 10:00 05/30/19 12:31 IVPB 112 mls/hr Q8H-IV ARAVIND Administration Sodium Chloride 1,000 mls @ 83 mls/hr 05/30/19 09:30 05/30/19 12:31 Normal Saline - IV 83 mls/hr ASDIR ARAVIND Administration Insulin Aspart 1 vial 05/30/19 07:00 05/30/19 12:49 Novolog Vial Sliding Scale - SQ Not Given TIDAC [facility] Protocol Levothyroxine Sodium 50 mcg 05/31/19 07:00 Synthroid - PO DAILY@0700 ARAVIND Lisinopril 10 mg 05/31/19 10:00 Prinivil PO DAILY ARAVIND Lorazepam 1 mg 05/30/19 13:33 05/30/19 14:19 Ativan Injection - IM 1 mg BID PRN Administration AGITATION Multivitamins 1 each 05/31/19 10:00 Total B With C - PO DAILY ARAVIND Pantoprazole Sodium 40 mg 05/31/19 10:00 Protonix - PO DAILY ARAVIND Quetiapine Fumarate 25 mg 05/30/19 14:00 Seroquel - PO TID [facility] ASSESSMENT/PLAN: 79 year old male with a history of dementia, ethanol abuse, hypertension, diabetes, hyperlipidemia, and prior history of CVA initially presented to the ED for several days of altered mental status #Altered mental status: currently being treated for bacterial and viral meningitis, unclear how convincing a picture of AMS from meningitis is based solely on LP, but with travel history and clinical presentation it is possible -would continue treating for bacterial/viral meningitis, white count, fever have been improving -CT remarkable for chronic L medial thalamic infarct with moderate atrophy and microvascular ischemic changes -would recommend MRI without contrast when stable -continued neurochecks -ID following -does not appear to be a seizure-like picture -replete electrolytes -recommend cessation of alcohol use -would need assessment when off ativan *Discussed with Dr. Cabello Visit type - Emergency Visit Emergency Visit: No - New Patient This patient is new to me today: Yes Date on this admission: 05/30/19 - Critical Care Critical Care patient: No ATTENDING PHYSICIAN STATEMENT I saw and evaluated the patient. I reviewed the resident's note and discussed the case with the resident. I agree with the resident's findings and plan as documented. SUBJECTIVE: OBJECTIVE: ASSESSMENT AND PLAN:
[2019-05-30] MEDS: CEFTRIAXONE 2 GM in DEXTROSE 5%-WATER 100 ML IVPB SCH (15:51)
[2019-05-30] MEDS: QUEtiapine FUMARATE 25 MG TABLET (FP) PO SCH (17:17)
--- NOTE | 2019-05-30 19:26 | CONS ---
DATE OF CONSULTATION: DATE OF DICTATION: 05/30/2019 INFECTIOUS DISEASE CONSULTATION HISTORY OF PRESENT ILLNESS: This is a 79-year-old man with dementia. For about the last year and a half, he lives at home with his . He is originally from [place]. He at baseline is very forgetful but otherwise is able to eat on his own. He is able to dress himself and use the bathroom, and he generally is able to go outside with his . They last went on a trip in February for 1 month to [place] and came back March 16. Two days ago he became very confused. He became agitated. He was not eating. There was no vomiting. He reported to the he had some headache. He had an episode of urinary incontinence. He was brought to the ER with these complaints, where he was noted to have a temperature of 100.1 and a white count of 18,000. He had a spinal tap done that was clear. There were 5 white cells with 1 red cell. Glucose was normal with a total protein of 52. He received vancomycin, ceftriaxone, ampicillin, and acyclovir in the ER. I am asked to see him for further evaluation. He is resting comfortably. He is in no acute distress. His fevers have resolved. PAST MEDICAL HISTORY: Notable for history of dementia, alcohol use, hypertension, diabetes, hyperlipidemia, and prior CVA. Apparently, there is no history of recent alcohol use. MEDICATION: His medications at home include: 1. Lisinopril. 2. Synthroid. 3. Amaryl. 4. Zocor. 5. Seroquel. 6. Omeprazole. 7. Metformin. 8. B complex. ALLERGIES: No known drug allergies. SURGICAL HISTORY: Not known. SOCIAL HISTORY: He is . He lives with his . This trip, they were back March 16. They have been back for 2 months. He lives in an apartment in [place]. He has had no sick contacts, according to the . He is originally from [place]. REVIEW OF SYSTEMS: She notes that he had no vomiting, had a poor appetite at home, and he was very agitated. PHYSICAL EXAMINATION: Vital Signs: Temperature 98.5, pulse of 88, blood pressure 131/68, respiratory rate 18, saturating 99%. HEENT: Normocephalic. Eyes are anicteric. Neck: Supple. He has no meningeal signs. Lungs: Clear to auscultation. Heart: Regular rate and rhythm. Abdomen: Soft, nontender. Extremities: Without edema. Skin: He has some ecchymoses I think from his agitation and restraints. He is wearing a jojo vest LABORATORY: White count on admission was 18.3, this morning is 10.7, hemoglobin 10.3, platelets are 247. His chemistries are normal. His LFTs are normal. CK is 895. BUN and creatinine are 10 and 0.8. Urinalysis is negative. CSF is as stated before. He had HIV status done which is negative. His blood cultures are pending. CSF Gram stain is negative. CSF culture is pending. Pneumococcal antigen done is negative. Head CT report was unremarkable. IMPRESSION: In summary, this was a 79-year-old man who presents with low-grade fever and agitation in the setting of fairly severe dementia. The white cells are top limit of normal. Protein of 52. I would suggest we continue ceftriaxone and his acyclovir for now and follow up his cerebrospinal fluid cultures. Would isolate him for 24 hours. Obtain a neurology consult for the atypical seizures. As well this could be early HSV, would consider MRI of head and electroencephalogram. Would check an RPR, [place] has been sent. Would place him in intravenous fluids while he is on intravenous acyclovir, and continue ceftriaxone and acyclovir for now. Further recommendations to follow. ORIN GALICIA M.D. [id number] MTDD
[2019-05-31] MEDS ORDERED: DEXTROSE 5%-WATER 100 ML IVPB ONE ×2 (00:50→12:21)
[2019-05-31] MEDS: QUEtiapine FUMARATE 25 MG TABLET (FP) PO SCH ×4 (00:55→21:03)
[2019-05-31] MEDS: ATORVASTATIN CA 20 MG TABLET (FP) PO SCH ×2 (00:55→21:03)
[2019-05-31] MEDS: CEFTRIAXONE 2 GM in DEXTROSE 5%-WATER 100 ML IVPB SCH ×2 (00:57→12:32)
[2019-05-31] MEDS: LORazepam 2 MG/ML SDV VIAL IM PRN ×2 (02:24→23:05)
[2019-05-31] MEDS ORDERED: PT OWN MED DRAWER 7, Y5N ONE ×2 (02:43→16:32)
[2019-05-31] MEDS: ACYCLOVIR INJECTION 600 MG in DEXTROSE 5%-WATER - 100 ML IVPB SCH ×3 (03:30→18:24)
[2019-05-31] MEDS ORDERED: LORazepam 2 MG/ML SDV VIAL IVPUSH ONE (05:51)
--- NOTE | 2019-05-31 05:59 | HOSP ---
Subjective - Review of Symptoms Events since last encounter: Hospitalist Encounter Notified by the primary RN that the patient is still agitated and pulling on IV tubing and trying to get out of bed. Was asked to assess Arrived to bedside, patient is alert to name only no to person, place or time. Attempts made to reorient patient, unsuccessful Plan: Ammonia Level in am Ativan 0.25mg IV Neurological: Yes: Confusion Other Systems: Psychological: Agitation Physical Examination Vital Signs: Vital Signs Temperature 98.3 F 05/31/19 02:00 Pulse Rate 101 H 05/31/19 02:00 Respiratory Rate 18 05/31/19 02:00 Blood Pressure 162/89 05/31/19 02:00 O2 Sat by Pulse Oximetry (%) 99 05/30/19 17:00 Constitutional: Yes: Anxious, Other (agitated) Eyes: Yes: Conjunctiva Clear (injected), PERRL HENT: Yes: WNL, Atraumatic, Normocephalic Neck: Yes: WNL, Supple, Trachea Midline Cardiovascular: Yes: Regular Rate and Rhythm, S1, S2 Respiratory: Yes: Diminished, Rhonchi Gastrointestinal: Yes: Normal Bowel Sounds, Soft Peripheral Pulses WNL: Yes Neurological: Yes: Confusion, Cran Nerves II-XII Intact ...Motor Strength: WNL Psychiatric: Yes: Agitated Labs: CBC, BMP 05/30/19 07:50 05/30/19 07:50
[2019-05-31] MEDS: LEVOTHYROXINE NA 50 MCG TABLET (FP) PO SCH (07:31)
[2019-05-31] MEDS: INSULIN SLIDING SCALE (NOVOLOG) 1 VIAL SQ SCH ×3 (07:37→17:17)
[2019-05-31 09:49] LABS: BASO % 0.7 % (0-2.0); EOS % 0.4 % (0-4.5); HEMATOCRIT 36.4 % (35.4-49); HEMOGLOBIN 12.2 GM/dL (11.7-16.9); LYMPH % 8.6 % (8-40); MCH 29.9 pg (25.7-33.7); MCHC 33.3 g/dl (32.0-35.9); MEAN CELL VOLUME 89.6 fl (80-96); MEAN PLT VOLUME 9.6 fl (7.5-11.1); MONO % 6.2 % (3.8-10.2); NEUT % 84.1 % (42.8-82.8); PLATELET COUNT 357 K/MM3 (134-434); RBC 4.07 M/mm3 (4.00-5.60); RDW 13.4 % (11.9-15.9); WHITE BLOOD COUNT 17.3 K/mm3 (4.0-10.0)
[2019-05-31] MEDS: SODIUM CHLORIDE 1,000 ML IV SCH (10:14)
[2019-05-31] MEDS: LISINOPRIL 10 MG TABLET (FP) PO SCH (10:15)
[2019-05-31] MEDS: ENOXAPARIN NA (PORCINE) 40 MG/0.4 ML DISP.SYRIN SQ SCH (10:15)
[2019-05-31] MEDS: PANTOPRAZOLE 40 MG TABLET (FP) PO SCH (10:15)
[2019-05-31] MEDS: VITAMIN B COMPLEX W/C COMBO TABLET (FP) PO SCH (10:16)
[2019-05-31 10:27] LABS: ALBUMIN 3.9 g/dl (3.4-5.0); BILIRUBIN,TOTAL 0.6 mg/dL (0.2-1); BLOOD UREA NITROGEN 10.8 mg/dL (7-18); CALCIUM 8.4 mg/dL (8.5-10.1); CREATININE 0.9 mg/dL (0.55-1.3); POTASSIUM 3.8 mmol/L (3.5-5.1); TOT PROT 6.2 g/dl (6.4-8.2)
[2019-05-31] MEDS ORDERED: INSULIN (NOVOLOG) ASPART 100 UNITS/ML 10ML VIAL ONE (12:21)
--- NOTE | 2019-05-31 16:19 | PN ---
Progress Note (short form) - Note Progress Note: events noted agitated on isolation for viral meningitis Vital Signs - 24 hr 05/30/19 05/30/19 05/30/19 17:00 18:30 21:00 Temperature 98.1 F 98.0 F Pulse Rate 80 93 H Respiratory 18 18 Rate Blood Pressure 134/71 148/78 O2 Sat by Pulse 99 99 Oximetry (%) 05/31/19 05/31/19 05/31/19 02:00 06:00 14:00 Temperature 98.3 F 98.4 F 98.2 F Pulse Rate 101 H 96 H 108 H Respiratory 18 18 18 Rate Blood Pressure 162/89 138/77 104/60 O2 Sat by Pulse Oximetry (%) Current Medications Generic Name Dose Route Start Last Admin Trade Name Freq PRN Reason Stop Dose Admin Atorvastatin Calcium 20 mg 05/30/19 22:00 05/31/19 00:55 Lipitor - PO Not Given HS ARAVIND Enoxaparin Sodium 40 mg 05/30/19 10:00 05/31/19 10:15 Lovenox - SQ 40 mg DAILY ARAVIND Administration Ceftriaxone Sodium 2 gm/ 100 mls @ 100 mls/hr 05/30/19 13:00 05/31/19 12:32 Dextrose IVPB 100 mls/hr Q12H ARAVIND Administration Protocol Acyclovir 600 mg/ Dextrose 112 mls @ 112 mls/hr 05/30/19 10:00 05/31/19 10:14 IVPB 112 mls/hr Q8H-IV ARAVIND Administration Sodium Chloride 1,000 mls @ 83 mls/hr 05/30/19 09:30 05/31/19 10:14 Normal Saline - IV 83 mls/hr ASDIR ARAVIND Administration Insulin Aspart 1 vial 05/30/19 07:00 05/31/19 12:30 Novolog Vial Sliding Scale - SQ 4 units TIDAC ARAVIND Administration Protocol Levothyroxine Sodium 50 mcg 05/31/19 07:00 05/31/19 07:31 Synthroid - PO Not Given DAILY@0700 ARAVIND Lisinopril 10 mg 05/31/19 10:00 05/31/19 10:15 Prinivil PO 10 mg DAILY ARAVIND Administration Lorazepam 1 mg 05/30/19 13:33 05/31/19 02:24 Ativan Injection - IM 1 mg BID PRN Administration AGITATION Multivitamins 1 each 05/31/19 10:00 05/31/19 10:16 Total B With C - PO 1 each DAILY ARAVIND Administration Pantoprazole Sodium 40 mg 05/31/19 10:00 05/31/19 10:15 Protonix - PO 40 mg DAILY ARAVIND Administration Quetiapine Fumarate 25 mg 05/30/19 14:00 05/31/19 13:02 Seroquel - PO 25 mg TID ARAVIND Administration Laboratory Results - last 24 hr 05/30/19 05/30/19 05/31/19 07:50 16:52 07:34 WBC RBC Hgb Hct MCV MCH MCHC RDW Plt Count MPV Absolute Neuts (auto) Neutrophils % Lymphocytes % Monocytes % Eosinophils % Basophils % Nucleated RBC % ESR Sodium Potassium Chloride Carbon Dioxide Anion Gap BUN Creatinine Est GFR (CKD-EPI)AfAm Est GFR (CKD-EPI)NonAf POC Glucometer 98 97 Random Glucose Calcium Total Bilirubin AST ALT Alkaline Phosphatase Ammonia Total Protein Albumin PTH Intact 50 RPR Titer 05/31/19 05/31/19 05/31/19 08:00 08:00 08:00 WBC 17.3 H RBC 4.07 Hgb 12.2 Hct 36.4 D MCV 89.6 MCH 29.9 MCHC 33.3 RDW 13.4 Plt Count 357 D MPV 9.6 Absolute Neuts (auto) 14.5 H Neutrophils % 84.1 H Lymphocytes % 8.6 D Monocytes % 6.2 Eosinophils % 0.4 Basophils % 0.7 Nucleated RBC % 0 ESR 7 Sodium 141 Potassium 3.8 Chloride 107 Carbon Dioxide 24 Anion Gap 10 BUN 10.8 Creatinine 0.9 Est GFR (CKD-EPI)AfAm 93.82 Est GFR (CKD-EPI)NonAf 80.95 POC Glucometer Random Glucose 92 Calcium 8.4 L Total Bilirubin 0.6 AST 40 H ALT 28 Alkaline Phosphatase 55 Ammonia Total Protein 6.2 L Albumin 3.9 PTH Intact RPR Titer 05/31/19 05/31/19 05/31/19 08:00 08:00 12:16 WBC RBC Hgb Hct MCV MCH MCHC RDW Plt Count MPV Absolute Neuts (auto) Neutrophils % Lymphocytes % Monocytes % Eosinophils % Basophils % Nucleated RBC % ESR Sodium Potassium Chloride Carbon Dioxide Anion Gap BUN Creatinine Est GFR (CKD-EPI)AfAm Est GFR (CKD-EPI)NonAf POC Glucometer 213 Random Glucose Calcium Total Bilirubin AST ALT Alkaline Phosphatase Ammonia 25.40 Total Protein Albumin PTH Intact RPR Titer Nonreactive S1 S2 RRR Lungs clear Abd-soft,NT No edema PLAN iv antibiotics resume psych meds cultures pending Problem List - Problems (1) Viral meningitis Code(s): A87.9 - VIRAL MENINGITIS, UNSPECIFIED (2) Dementia Code(s): F03.90 - UNSPECIFIED DEMENTIA WITHOUT BEHAVIORAL DISTURBANCE (3) AMS (altered mental status) Code(s): R41.82 - ALTERED MENTAL STATUS, UNSPECIFIED Qualifiers: Altered mental status type: disorientation Qualified Code(s): R41.0 - Disorientation, unspecified (4) Fever Code(s): R50.9 - FEVER, UNSPECIFIED Qualifiers: Fever type: unspecified Qualified Code(s): R50.9 - Fever, unspecified (5) Leukocytosis Code(s): D72.829 - ELEVATED WHITE BLOOD CELL COUNT, UNSPECIFIED Qualifiers: Leukocytosis type: unspecified Qualified Code(s): D72.829 - Elevated white blood cell count, unspecified
--- NOTE | 2019-05-31 17:06 | PN ---
Progress Note, Physician History of Present Illness: AWAKE IN BED FAMILY IN ATTENDANCE THEY REPORT MENTAL STATUS IMPROVED CSF STUDIES PENDING TEMPS DOWN WBC REMAINS ELEVATED - Current Medication List Current Medications: Active Medications Atorvastatin Calcium (Lipitor -) 20 mg PO HS [facility] Last Admin: 05/31/19 00:55 Dose: Not Given Enoxaparin Sodium (Lovenox -) 40 mg SQ DAILY [facility] Last Admin: 05/31/19 10:15 Dose: 40 mg Ceftriaxone Sodium 2 gm/ (Dextrose) 100 mls @ 100 mls/hr IVPB Q12H [facility]; Protocol Last Admin: 05/31/19 12:32 Dose: 100 mls/hr Acyclovir 600 mg/ Dextrose 112 mls @ 112 mls/hr IVPB Q8H-IV [facility] Last Admin: 05/31/19 10:14 Dose: 112 mls/hr Sodium Chloride (Normal Saline -) 1,000 mls @ 83 mls/hr IV ASDIR [facility] Last Admin: 05/31/19 10:14 Dose: 83 mls/hr Insulin Aspart (Novolog Vial Sliding Scale -) 1 vial SQ TIDAC [facility]; Protocol Last Admin: 05/31/19 12:30 Dose: 4 units Levothyroxine Sodium (Synthroid -) 50 mcg PO DAILY@0700 [facility] Last Admin: 05/31/19 07:31 Dose: Not Given Lisinopril (Prinivil) 10 mg PO DAILY [facility] Last Admin: 05/31/19 10:15 Dose: 10 mg Lorazepam (Ativan Injection -) 1 mg IM BID PRN PRN Reason: AGITATION Last Admin: 05/31/19 02:24 Dose: 1 mg Multivitamins (Total B With C -) 1 each PO DAILY [facility] Last Admin: 05/31/19 10:16 Dose: 1 each Pantoprazole Sodium (Protonix -) 40 mg PO DAILY [facility] Last Admin: 05/31/19 10:15 Dose: 40 mg Quetiapine Fumarate (Seroquel -) 25 mg PO TID [facility] Last Admin: 05/31/19 13:02 Dose: 25 mg - Objective Vital Signs: Vital Signs Temperature 98.2 F 05/31/19 14:00 Pulse Rate 108 H 05/31/19 14:00 Respiratory Rate 18 05/31/19 14:00 Blood Pressure 104/60 05/31/19 14:00 O2 Sat by Pulse Oximetry (%) 99 11/22/19 21:00 Constitutional: Yes: No Distress Eyes: Yes: Conjunctiva Clear Cardiovascular: Yes: Regular Rate and Rhythm, S1, S2 Respiratory: Yes: CTA Bilaterally Gastrointestinal: Yes: Normal Bowel Sounds, Soft Edema: No Labs: CBC, BMP 05/31/19 08:00 05/31/19 08:00 INR, PTT INR 1.21 (0.83-1.09) H 05/30/19 07:50 Assessment/Plan R/O POST ACUTE CARE REGISTERED NURSE INFECTION AWAIT CSF STUDIES CONTINUE EMPIRIC CEFTRIAXONE/ACYCLOVIR
[2019-06-01] MEDS ORDERED: DEXTROSE 5%-WATER 100 ML IVPB ONE ×3 (00:36→23:22)
[2019-06-01] MEDS: CEFTRIAXONE 2 GM in DEXTROSE 5%-WATER 100 ML IVPB SCH ×2 (00:47→13:47)
[2019-06-01] MEDS: ACYCLOVIR INJECTION 600 MG in DEXTROSE 5%-WATER - 100 ML IVPB SCH ×3 (02:12→18:19)
[2019-06-01] MEDS: QUEtiapine FUMARATE 25 MG TABLET (FP) PO SCH ×3 (05:16→21:21)
[2019-06-01] MEDS: INSULIN SLIDING SCALE (NOVOLOG) 1 VIAL SQ SCH ×3 (06:00→17:23)
[2019-06-01] MEDS: LEVOTHYROXINE NA 50 MCG TABLET (FP) PO SCH (06:01)
[2019-06-01] MEDS: SODIUM CHLORIDE 1,000 ML IV SCH (09:27)
[2019-06-01] MEDS: LISINOPRIL 10 MG TABLET (FP) PO SCH (12:21)
[2019-06-01] MEDS: VITAMIN B COMPLEX W/C COMBO TABLET (FP) PO SCH (12:21)
[2019-06-01] MEDS: ENOXAPARIN NA (PORCINE) 40 MG/0.4 ML DISP.SYRIN SQ SCH (12:21)
[2019-06-01] MEDS: PANTOPRAZOLE 40 MG TABLET (FP) PO SCH (12:22)
[2019-06-01] MEDS ORDERED: PT OWN MED DRAWER 7, Y5N ONE (17:38)
--- NOTE | 2019-06-01 18:30 | PN ---
Progress Note (short form) - Note Progress Note: events noted calm now not eating much per DIRECTOR DIETETICS DEPARTMENT on isolation for viral meningitis Vital Signs - 24 hr 05/31/19 05/31/19 06/01/19 20:32 21:00 02:26 Temperature 99.4 F 98.4 F Pulse Rate 100 H 110 H Respiratory 18 18 Rate Blood Pressure 146/75 142/83 O2 Sat by Pulse 99 Oximetry (%) 06/01/19 06/01/19 06:13 14:00 Temperature 97.7 F 99.6 F Pulse Rate 89 98 H Respiratory 18 18 Rate Blood Pressure 161/67 129/78 O2 Sat by Pulse Oximetry (%) Current Medications Generic Name Dose Route Start Last Admin Trade Name Freq PRN Reason Stop Dose Admin Atorvastatin Calcium 20 mg 05/30/19 22:00 05/31/19 21:03 Lipitor - PO 20 mg HS [facility]IND Administration Enoxaparin Sodium 40 mg 05/30/19 10:00 06/01/19 12:21 Lovenox - SQ 40 mg DAILY [facility] Administration Ceftriaxone Sodium 2 gm/ 100 mls @ 100 mls/hr 05/30/19 13:00 06/01/19 13:47 Dextrose IVPB 100 mls/hr Q12H [facility]IND Administration Protocol Acyclovir 600 mg/ Dextrose 112 mls @ 112 mls/hr 05/30/19 10:00 06/01/19 18:19 IVPB 112 mls/hr Q8H-IV [facility] Administration Sodium Chloride 1,000 mls @ 83 mls/hr 05/30/19 09:30 06/01/19 09:27 Normal Saline - IV 83 mls/hr ASDIR [facility] Administration Insulin Aspart 1 vial 05/30/19 07:00 06/01/19 17:23 Novolog Vial Sliding Scale - SQ 4 units TIDAC [facility] Administration Protocol Levothyroxine Sodium 50 mcg 05/31/19 07:00 06/01/19 06:01 Synthroid - PO 50 mcg DAILY@0700 [facility] Administration Lisinopril 10 mg 05/31/19 10:00 06/01/19 12:21 Prinivil PO 10 mg DAILY [facility] Administration Lorazepam 1 mg 05/30/19 13:33 05/31/19 23:05 Ativan Injection - IM 1 mg BID PRN Administration AGITATION Multivitamins 1 each 05/31/19 10:00 06/01/19 12:21 Total B With C - PO 1 each DAILY [facility] Administration Pantoprazole Sodium 40 mg 05/31/19 10:00 06/01/19 12:22 Protonix - PO 40 mg DAILY [facility] Administration Quetiapine Fumarate 25 mg 05/30/19 14:00 06/01/19 13:47 Seroquel - PO 25 mg TID [facility]IND Administration Laboratory Results - last 24 hr 05/30/19 06/01/19 06/01/19 01:30 05:31 12:06 POC Glucometer 119 92 HSV I DNA Quant (PCR) Negative HSV II DNA Quant (PCR) Negative 06/01/19 17:19 POC Glucometer 223 HSV I DNA Quant (PCR) HSV II DNA Quant (PCR) S1 S2 RRR Lungs clear Abd-soft,NT No edema PLAN iv antibiotics cultures negative continue meds vest restraints as pt gets agitated more calm now on seroquel add dietary supplements Problem List - Problems (1) Viral meningitis Code(s): A87.9 - VIRAL MENINGITIS, UNSPECIFIED (2) Dementia Code(s): F03.90 - UNSPECIFIED DEMENTIA WITHOUT BEHAVIORAL DISTURBANCE (3) AMS (altered mental status) Code(s): R41.82 - ALTERED MENTAL STATUS, UNSPECIFIED Qualifiers: Altered mental status type: disorientation Qualified Code(s): R41.0 - Disorientation, unspecified (4) Fever Code(s): R50.9 - FEVER, UNSPECIFIED Qualifiers: Fever type: unspecified Qualified Code(s): R50.9 - Fever, unspecified (5) Leukocytosis Code(s): D72.829 - ELEVATED WHITE BLOOD CELL COUNT, UNSPECIFIED Qualifiers: Leukocytosis type: unspecified Qualified Code(s): D72.829 - Elevated white blood cell count, unspecified
[2019-06-01] MEDS: ATORVASTATIN CA 20 MG TABLET (FP) PO SCH (21:21)
[2019-06-01] MEDS: LORazepam 2 MG/ML SDV VIAL IM PRN (23:26)
[2019-06-02] MEDS: CEFTRIAXONE 2 GM in DEXTROSE 5%-WATER 100 ML IVPB SCH (00:40)
[2019-06-02] MEDS: SODIUM CHLORIDE 1,000 ML IV SCH ×3 (01:33→17:55)
[2019-06-02] MEDS: ACYCLOVIR INJECTION 600 MG in DEXTROSE 5%-WATER - 100 ML IVPB SCH ×2 (01:34→11:51)
[2019-06-02] MEDS: INSULIN SLIDING SCALE (NOVOLOG) 1 VIAL SQ SCH ×3 (06:20→18:08)
[2019-06-02] MEDS: LEVOTHYROXINE NA 50 MCG TABLET (FP) PO SCH (06:21)
[2019-06-02] MEDS: QUEtiapine FUMARATE 25 MG TABLET (FP) PO SCH ×3 (06:21→21:46)
[2019-06-02 08:36] LABS: BASO % 0.5 % (0-2.0); EOS % 0.6 % (0-4.5); HEMATOCRIT 34.6 % (35.4-49); HEMOGLOBIN 11.7 GM/dL (11.7-16.9); LYMPH % 6.5 % (8-40); MCHC 33.8 g/dl (32.0-35.9); MEAN CELL VOLUME 88.9 fl (80-96); MEAN PLT VOLUME 9.2 fl (7.5-11.1); MONO % 7.8 % (3.8-10.2); NEUT % 84.6 % (42.8-82.8); PLATELET COUNT 313 K/MM3 (134-434); RDW 13.2 % (11.9-15.9); WHITE BLOOD COUNT 17.2 K/mm3 (4.0-10.0)
[2019-06-02 09:10] LABS: ALBUMIN 3.3 g/dl (3.4-5.0); BILIRUBIN,TOTAL 0.9 mg/dL (0.2-1); CREATININE 0.8 mg/dL (0.55-1.3); POTASSIUM 3.8 mmol/L (3.5-5.1); TOT PROT 5.6 g/dl (6.4-8.2)
[2019-06-02] MEDS ORDERED: PT OWN MED DRAWER 7, Y5N ONE (10:17)
[2019-06-02] MEDS: LISINOPRIL 10 MG TABLET (FP) PO SCH (10:31)
[2019-06-02] MEDS: PANTOPRAZOLE 40 MG TABLET (FP) PO SCH (10:31)
[2019-06-02] MEDS: ENOXAPARIN NA (PORCINE) 40 MG/0.4 ML DISP.SYRIN SQ SCH (10:31)
[2019-06-02] MEDS: VITAMIN B COMPLEX W/C COMBO TABLET (FP) PO SCH (10:33)
--- NOTE | 2019-06-02 11:22 | PN ---
Progress Note (short form) - Note Progress Note: Pt seen/ examined chart reviewed calm sleepy but arousable afebrile Vital Signs Temp 98.2 F 06/02/19 10:00 Pulse 99 H 06/02/19 10:00 Resp 20 06/02/19 10:00 BP 153/81 06/02/19 10:00 Pulse Ox 97 06/01/19 21:00 Intake & Output 06/01/19 06/01/19 06/02/19 11:59 23:59 11:59 Intake Total 2000 1000 Output Total 200 Balance 2000 -200 1000 Intake: IV 1600 800 Normal Saline - 1,000 ml 1600 800 @ 83 mls/hr IV ASDIR [facility]VIND Rx#:[id number] IVPB 400 200 Oral 0 Output: Urine 200 Void 200 Other: Voiding Method Incontinent Urinal # Unmeasured Voids Void 2 2 Bowel Movement No No Active Medications Atorvastatin Calcium (Lipitor -) 20 mg PO HS [facility] Last Admin: 06/01/19 21:21 Dose: 20 mg Enoxaparin Sodium (Lovenox -) 40 mg SQ DAILY [facility] Last Admin: 06/02/19 10:31 Dose: 40 mg Ceftriaxone Sodium 2 gm/ (Dextrose) 100 mls @ 100 mls/hr IVPB Q12H [facility]; Protocol Last Admin: 06/02/19 00:40 Dose: 100 mls/hr Acyclovir 600 mg/ Dextrose 112 mls @ 112 mls/hr IVPB Q8H-IV [facility] Last Admin: 06/02/19 01:34 Dose: 112 mls/hr Sodium Chloride (Normal Saline -) 1,000 mls @ 83 mls/hr IV ASDIR [facility] Last Admin: 06/02/19 10:31 Dose: 83 mls/hr Insulin Aspart (Novolog Vial Sliding Scale -) 1 vial SQ TIDAC [facility]; Protocol Last Admin: 06/02/19 06:20 Dose: Not Given Levothyroxine Sodium (Synthroid -) 50 mcg PO DAILY@0700 [facility] Last Admin: 06/02/19 06:21 Dose: 50 mcg Lisinopril (Prinivil) 10 mg PO DAILY [facility] Last Admin: 06/02/19 10:31 Dose: 10 mg Lorazepam (Ativan Injection -) 1 mg IM BID PRN PRN Reason: AGITATION Last Admin: 06/01/19 23:26 Dose: 1 mg Multivitamins (Total B With C -) 1 each PO DAILY [facility] Last Admin: 06/02/19 10:33 Dose: 1 each Pantoprazole Sodium (Protonix -) 40 mg PO DAILY [facility] Last Admin: 06/02/19 10:31 Dose: 40 mg Quetiapine Fumarate (Seroquel -) 25 mg PO TID [facility] Last Admin: 06/02/19 06:21 Dose: 25 mg CBC, BMP 06/02/19 07:50 06/02/19 07:50 Microbiology 05/29/19 19:30 Blood Culture - Preliminary Blood - Peripheral Venous NO GROWTH OBTAINED AFTER 72 HOURS, INCUBATION TO CONTINUE FOR 2 DAYS. 05/29/19 19:30 Blood Culture - Preliminary Blood - Peripheral Venous NO GROWTH OBTAINED AFTER 72 HOURS, INCUBATION TO CONTINUE FOR 2 DAYS. 05/30/19 01:38 Gram Stain - Final Cerebral Spinal Fluid - Lumbar Puncture CSF Culture - Final Physical Exam. S1 S2 RRR Lungs clear Abd-soft,NT No edema PLAN iv antibiotics cultures negative continue meds 1:1 sitter. Continue current management. D/w Dr. Lacey also more calm now on seroquel add dietary supplements Problem List - Problems (1) AMS (altered mental status) Code(s): R41.82 - ALTERED MENTAL STATUS, UNSPECIFIED Qualifiers: Altered mental status type: disorientation Qualified Code(s): R41.0 - Disorientation, unspecified (2) Fever Code(s): R50.9 - FEVER, UNSPECIFIED Qualifiers: Fever type: unspecified Qualified Code(s): R50.9 - Fever, unspecified (3) Leukocytosis Code(s): D72.829 - ELEVATED WHITE BLOOD CELL COUNT, UNSPECIFIED Qualifiers: Leukocytosis type: unspecified Qualified Code(s): D72.829 - Elevated white blood cell count, unspecified
--- NOTE | 2019-06-02 13:07 | PN ---
Progress Note (short form) - Note Progress Note: more alert remained on rocephin/acyclovir over the weekend still with jojo Vital Signs Period Temp Pulse Resp BP Sys/Sauceda Pulse Ox Last 24 Hr 97.6 F-99.7 F 98-119 18-20 124-162/63-87 97 cor-rrr lungs clear abd soft,nt ext multiple ecchymoses CBC, BMP 06/02/19 07:50 06/02/19 07:50 Microbiology 05/29/19 19:30 Blood - Peripheral Venous Blood Culture - Preliminary NO GROWTH OBTAINED AFTER 72 HOURS, INCUBATION TO CONTINUE FOR 2 DAYS. 05/29/19 19:30 Blood - Peripheral Venous Blood Culture - Preliminary NO GROWTH OBTAINED AFTER 72 HOURS, INCUBATION TO CONTINUE FOR 2 DAYS. 05/30/19 01:38 Cerebral Spinal Fluid - Lumbar Puncture Gram Stain - Final 05/30/19 01:38 Cerebral Spinal Fluid - Lumbar Puncture CSF Culture - Final 05/29/19 22:30 Urine - Urine - Catheterized Urine Culture - Final NO GROWTH OBTAINED 05/30/19 01:38 Cerebral Spinal Fluid - Lumbar Puncture Streptococcus pneumoniae Antigen (M - Final Laboratory Tests 05/30/19 01:30 HSV I DNA Quant (PCR) Negative HSV II DNA Quant (PCR) Negative a/p persistent leukocytosis csf cultures negative will d/c rocephin HSV PCR from csf negative- d/c acyclovir will observe off antibiotics severe dementia f
--- NOTE | 2019-06-02 16:44 | PN ---
Progress Note (short form) - Note Progress Note: follow up regarding AMS suspected meningitis/encephalitis S: 79 year old male with a history of dementia, ethanol abuse, hypertension, diabetes, hyperlipidemia, and prior history of CVA initially presented to the ED for several days of altered mental status, brought in with . Per report, patient started with a headache, fevers, and became aggressive with . He came in with fevers, elevated white count and tachycardia. Patient was empirically started on therapy for meningitis. Lumbar puncture was performed and found mildly elevated protein but unremarkable white count and negative gram stain. Other serologic studies are pending. Per nurse, patient just received ativan and is sleeping, being difficult to arouse. Patient denies any current complaints. There is reported recent travel to [place] with history of good ADLs. Patient has been afebrile and still confused ( history of dementia) , csf culture negative and hsv pcr is negative . Neurological examinatoin VSS, patient is sleepy and neck is supple arounsable and confused pupils reactive no face asymmetry moving all extremity reflex are generlaized diminished ASSESSMENT/PLAN: 79 year old male with a history of dementia, ethanol abuse, hypertension, diabetes, hyperlipidemia, and prior history of CVA initially presented to the ED for several days of altered mental status. Clinically unlikely to be menigitis or encephalitis Plan abx as per ID, ceftrixione has been stopped and acyclovir has been stopped continue supportive care
[2019-06-02] MEDS ORDERED: INSULIN (NOVOLOG) ASPART 100 UNITS/ML 10ML VIAL ONE (18:06)
[2019-06-02] MEDS: ATORVASTATIN CA 20 MG TABLET (FP) PO SCH (21:46)
[2019-06-03] MEDS: INSULIN SLIDING SCALE (NOVOLOG) 1 VIAL SQ SCH ×3 (06:25→18:01)
[2019-06-03] MEDS: SODIUM CHLORIDE 1,000 ML IV SCH ×2 (06:26→21:45)
[2019-06-03] MEDS: QUEtiapine FUMARATE 25 MG TABLET (FP) PO SCH ×3 (06:28→21:50)
[2019-06-03] MEDS: LEVOTHYROXINE NA 50 MCG TABLET (FP) PO SCH (06:28)
[2019-06-03] MEDS ORDERED: PT OWN MED DRAWER 7, Y5N ONE (10:50)
[2019-06-03] MEDS: VITAMIN B COMPLEX W/C COMBO TABLET (FP) PO SCH (10:55)
[2019-06-03] MEDS: LISINOPRIL 10 MG TABLET (FP) PO SCH (10:55)
[2019-06-03] MEDS: ENOXAPARIN NA (PORCINE) 40 MG/0.4 ML DISP.SYRIN SQ SCH (10:55)
[2019-06-03] MEDS: PANTOPRAZOLE 40 MG TABLET (FP) PO SCH (10:55)
[2019-06-03] MEDS ORDERED: INSULIN (NOVOLOG) ASPART 100 UNITS/ML 10ML VIAL ONE (11:15)
--- NOTE | 2019-06-03 12:24 | PN ---
Progress Note (short form) - Note Progress Note: events noted calm now eating better per BIOINFORMATICS SUPPORT SPECIALIST no distress spoke with Daughter IV antibiotics dc pt c/o pain in legs Vital Signs - 24 hr 06/02/19 06/02/19 06/02/19 14:00 18:00 21:00 Temperature 97.4 F L 99.0 F Pulse Rate 106 H 109 H Respiratory 20 20 Rate Blood Pressure 153/78 140/76 O2 Sat by Pulse 98 Oximetry (%) 06/02/19 06/03/19 06/03/19 22:00 02:00 06:00 Temperature 99.6 F 98.5 F 97.3 F L Pulse Rate 102 H 101 H 98 H Respiratory 20 20 20 Rate Blood Pressure 151/63 139/65 140/57 L O2 Sat by Pulse Oximetry (%) 06/03/19 10:00 Temperature 99.8 F H Pulse Rate 113 H Respiratory 18 Rate Blood Pressure 133/60 O2 Sat by Pulse Oximetry (%) Current Medications Generic Name Dose Route Start Last Admin Trade Name Freq PRN Reason Stop Dose Admin Atorvastatin Calcium 20 mg 05/30/19 22:00 06/02/19 21:46 Lipitor - PO 20 mg HS [facility]IND Administration Donepezil HCl 10 mg 06/03/19 12:15 Aricept - PO DAILY [facility]IND Enoxaparin Sodium 40 mg 05/30/19 10:00 06/03/19 10:55 Lovenox - SQ 40 mg DAILY [facility] Administration Sodium Chloride 1,000 mls @ 83 mls/hr 05/30/19 09:30 06/03/19 06:26 Normal Saline - IV 83 mls/hr ASDIR [facility] Administration Insulin Aspart 1 vial 05/30/19 07:00 06/03/19 11:16 Novolog Vial Sliding Scale - SQ 4 units TIDAC [facility] Administration Protocol Levothyroxine Sodium 50 mcg 05/31/19 07:00 06/03/19 06:28 Synthroid - PO 50 mcg DAILY@0700 [facility]IND Administration Lisinopril 10 mg 05/31/19 10:00 06/03/19 10:55 Prinivil PO 10 mg DAILY [facility]IND Administration Multivitamins 1 each 05/31/19 10:00 06/03/19 10:55 Total B With C - PO 1 each DAILY [facility] Administration Pantoprazole Sodium 40 mg 05/31/19 10:00 06/03/19 10:55 Protonix - PO 40 mg DAILY [facility] Administration Quetiapine Fumarate 25 mg 05/30/19 14:00 06/03/19 06:28 Seroquel - PO 25 mg TID A[facility]VIND Administration Laboratory Results - last 24 hr 05/30/19 05/30/19 06/02/19 11:11 11:11 17:58 POC Glucometer 229 CSF VDRL Non reactive CSF [place] IgG Ab Negative CSF [place] IgM Ab Negative 06/03/19 06/03/19 06:24 11:14 POC Glucometer 76 219 CSF VDRL CSF [place] IgG Ab CSF [place] IgM Ab S1 S2 RRR, dropped beat? Lungs clear Abd-soft,NT No edema PLAN iv antibiotics dc all cultures negative ruled out for meningitis tachycardia--Check EKG cultures negative continue meds vest restraints as pt gets agitated more calm now on seroquel added dietary supplements may need STR PT eval Problem List - Problems (1) Viral meningitis Code(s): A87.9 - VIRAL MENINGITIS, UNSPECIFIED (2) Dementia Code(s): F03.90 - UNSPECIFIED DEMENTIA WITHOUT BEHAVIORAL DISTURBANCE (3) AMS (altered mental status) Code(s): R41.82 - ALTERED MENTAL STATUS, UNSPECIFIED Qualifiers: Altered mental status type: disorientation Qualified Code(s): R41.0 - Disorientation, unspecified (4) Fever Code(s): R50.9 - FEVER, UNSPECIFIED Qualifiers: Fever type: unspecified Qualified Code(s): R50.9 - Fever, unspecified (5) Leukocytosis Code(s): D72.829 - ELEVATED WHITE BLOOD CELL COUNT, UNSPECIFIED Qualifiers: Leukocytosis type: unspecified Qualified Code(s): D72.829 - Elevated white blood cell count, unspecified
[2019-06-03 13:23] LABS: BASO % 0.2 % (0-2.0); EOS % 0.3 % (0-4.5); HEMATOCRIT 31.9 % (35.4-49); HEMOGLOBIN 10.8 GM/dL (11.7-16.9); LYMPH % 4.5 % (8-40); MCH 29.9 pg (25.7-33.7); MCHC 33.7 g/dl (32.0-35.9); MEAN CELL VOLUME 88.5 fl (80-96); MEAN PLT VOLUME 9.2 fl (7.5-11.1); MONO % 7.9 % (3.8-10.2); NEUT % 87.1 % (42.8-82.8); PLATELET COUNT 300 K/MM3 (134-434); RBC 3.61 M/mm3 (4.00-5.60); RDW 13.1 % (11.9-15.9); WHITE BLOOD COUNT 17.7 K/mm3 (4.0-10.0)
--- NOTE | 2019-06-03 13:55 | EKG ---
Test Reason : Blood Pressure : / mmHG Vent. Rate : 121 BPM Atrial Rate : 121 BPM P-R Int : 126 ms QRS Dur : 074 ms QT Int : 342 ms P-R-T Axes : 033 005 022 degrees QTc Int : 485 ms SINUS TACHYCARDIA WITH PREMATURE ATRIAL COMPLEXES OTHERWISE NORMAL ECG WHEN COMPARED WITH ECG OF 29-MAY-2019 18:48, PREMATURE ATRIAL COMPLEXES ARE NOW PRESENT Confirmed by MD RAGHAV, LUZMARIA ([id number]) on 06/03/2019 1:55:18 PM Referred By: DONNA CASH Confirmed By:LUZMARIA AVILEZ MD
[2019-06-03] MEDS: DONEPEZIL HCL 10 MG TABLET (FP) PO SCH (14:04)
[2019-06-03 14:23] LABS: ERYTHROCYTE SEDIMENTATION RATE 30 mm/hr (0-20)
--- NOTE | 2019-06-03 15:15 | PN ---
Progress Note (short form) - Note Progress Note: 79 year old male with a history of dementia, ethanol abuse, hypertension, diabetes, hyperlipidemia, and prior history of CVA initially presented to the ED for several days of altered mental status, brought in with . Per report, patient started with a headache, fevers, and became aggressive with . He came in with fevers, elevated white count and tachycardia. Patient was empirically started on therapy for meningitis. Lumbar puncture was performed and found mildly elevated protein but unremarkable white count and negative gram stain. Other serologic studies are pending. Per nurse, patient just received ativan and is sleeping, being difficult to arouse. Patient denies any current complaints. There is reported recent travel to [place] with history of good ADLs. Patient has been afebrile and still confused ( history of dementia) , csf culture negative and hsv pcr is negative . abx has been stopped , he was seen with at bed side. no acute distress Neurological examinatoin VSS, patient is sleepy and neck is supple oriented x 1 pupils reactive no face asymmetry moving all extremity reflex are generlaized diminished ASSESSMENT/PLAN: 79 year old male with a history of dementia, ethanol abuse, hypertension, diabetes, hyperlipidemia, and prior history of CVA . No evidence of stroke or meningitis. Plan Continue current level of care Waiting for placement Thanking you so much Lazara Cabello MD
[2019-06-03] MEDS: ATORVASTATIN CA 20 MG TABLET (FP) PO SCH (21:50)
[2019-06-04] MEDS: LEVOTHYROXINE NA 50 MCG TABLET (FP) PO SCH (06:47)
[2019-06-04] MEDS: QUEtiapine FUMARATE 25 MG TABLET (FP) PO SCH ×3 (06:47→21:58)
[2019-06-04] MEDS: INSULIN SLIDING SCALE (NOVOLOG) 1 VIAL SQ SCH ×3 (07:06→19:04)
[2019-06-04 08:30] LABS: BASO % 0.4 % (0-2.0); EOS % 0.8 % (0-4.5); HEMATOCRIT 31.7 % (35.4-49); HEMOGLOBIN 10.7 GM/dL (11.7-16.9); MCH 30.1 pg (25.7-33.7); MCHC 33.8 g/dl (32.0-35.9); MONO % 10.9 % (3.8-10.2); NEUT % 80.9 % (42.8-82.8); PLATELET COUNT 291 K/MM3 (134-434); RBC 3.56 M/mm3 (4.00-5.60); RDW 13.4 % (11.9-15.9); WHITE BLOOD COUNT 14.6 K/mm3 (4.0-10.0)
[2019-06-04 08:51] LABS: ALBUMIN 2.6 g/dl (3.4-5.0); BILIRUBIN,TOTAL 0.8 mg/dL (0.2-1); BLOOD UREA NITROGEN 11.5 mg/dL (7-18); CREATININE 0.8 mg/dL (0.55-1.3); POTASSIUM 3.7 mmol/L (3.5-5.1)
[2019-06-04] MEDS ORDERED: PT OWN MED DRAWER 7, Y5N ONE (09:30)
[2019-06-04] MEDS: SODIUM CHLORIDE 1,000 ML IV SCH (10:06)
[2019-06-04] MEDS: LISINOPRIL 10 MG TABLET (FP) PO SCH (10:07)
[2019-06-04] MEDS: PANTOPRAZOLE 40 MG TABLET (FP) PO SCH (10:07)
[2019-06-04] MEDS: ENOXAPARIN NA (PORCINE) 40 MG/0.4 ML DISP.SYRIN SQ SCH (10:08)
[2019-06-04] MEDS: VITAMIN B COMPLEX W/C COMBO TABLET (FP) PO SCH (10:08)
[2019-06-04] MEDS: DONEPEZIL HCL 10 MG TABLET (FP) PO SCH (10:08)
--- NOTE | 2019-06-04 12:23 | PN ---
Progress Note (short form) - Note Progress Note: events noted calm now eating better per [employer] no distress spoke with Daughter IV antibiotics dc Vital Signs - 24 hr 06/03/19 06/03/19 06/04/19 14:00 22:00 01:15 Temperature 97.8 F Pulse Rate 111 H 115 H Respiratory 18 20 20 Rate Blood Pressure 138/69 150/79 O2 Sat by Pulse 96 Oximetry (%) 06/04/19 06:00 Temperature 98.5 F Pulse Rate 102 H Respiratory 20 Rate Blood Pressure 134/66 O2 Sat by Pulse Oximetry (%) Current Medications Generic Name Dose Route Start Last Admin Trade Name Freq PRN Reason Stop Dose Admin Atorvastatin Calcium 20 mg 05/30/19 22:00 06/03/19 21:50 Lipitor - PO 20 mg HS ARAVIND Administration Donepezil HCl 10 mg 06/03/19 12:15 06/04/19 10:08 Aricept - PO 10 mg DAILY [facility]IND Administration Enoxaparin Sodium 40 mg 05/30/19 10:00 06/04/19 10:08 Lovenox - SQ 40 mg DAILY [facility]IND Administration Sodium Chloride 1,000 mls @ 83 mls/hr 05/30/19 09:30 06/04/19 10:06 Normal Saline - IV Not Given ASDIR ARA[facility]IND Insulin Aspart 1 vial 05/30/19 07:00 06/04/19 07:06 Novolog Vial Sliding Scale - SQ Not Given TIDAC [facility] Protocol Levothyroxine Sodium 50 mcg 05/31/19 07:00 06/04/19 06:47 Synthroid - PO 50 mcg DAILY@0700 A[facility]IND Administration Lisinopril 10 mg 05/31/19 10:00 06/04/19 10:07 Prinivil PO 10 mg DAILY [facility]IND Administration Multivitamins 1 each 05/31/19 10:00 06/04/19 10:08 Total B With C - PO 1 each DAILY [facility]IND Administration Pantoprazole Sodium 40 mg 05/31/19 10:00 06/04/19 10:07 Protonix - PO 40 mg DAILY [facility] Administration Quetiapine Fumarate 25 mg 05/30/19 14:00 06/04/19 06:47 Seroquel - PO 25 mg TID A[facility]VIND Administration Laboratory Results - last 24 hr 06/03/19 06/03/19 06/04/19 13:00 17:59 07:04 WBC 17.7 H RBC 3.61 L Hgb 10.8 L Hct 31.9 L MCV 88.5 MCH 29.9 MCHC 33.7 RDW 13.1 Plt Count 300 MPV 9.2 Absolute Neuts (auto) 15.4 H Neutrophils % 87.1 H Lymphocytes % 4.5 L D Monocytes % 7.9 Eosinophils % 0.3 Basophils % 0.2 Nucleated RBC % 0 ESR 30 H Sodium Potassium Chloride Carbon Dioxide Anion Gap BUN Creatinine Est GFR (CKD-EPI)AfAm Est GFR (CKD-EPI)NonAf POC Glucometer 328 133 Random Glucose Calcium Total Bilirubin AST ALT Alkaline Phosphatase Total Protein Albumin 06/04/19 06/04/19 07:41 07:41 WBC 14.6 H RBC 3.56 L Hgb 10.7 L Hct 31.7 L MCV 89.0 MCH 30.1 MCHC 33.8 RDW 13.4 Plt Count 291 MPV 9.0 Absolute Neuts (auto) 11.8 H Neutrophils % 80.9 Lymphocytes % 7.0 L D Monocytes % 10.9 H Eosinophils % 0.8 D Basophils % 0.4 Nucleated RBC % 0 ESR Sodium 139 Potassium 3.7 Chloride 106 Carbon Dioxide 26 Anion Gap 7 L BUN 11.5 Creatinine 0.8 Est GFR (CKD-EPI)AfAm 98.47 Est GFR (CKD-EPI)NonAf 84.96 POC Glucometer Random Glucose 132 H Calcium 8.0 L Total Bilirubin 0.8 AST 12 L ALT 26 Alkaline Phosphatase 47 Total Protein 5.0 L Albumin 2.6 L S1 S2 RRR, dropped beat? Lungs clear Abd-soft,NT No edema PLAN iv antibiotics dc all cultures negative ruled out for meningitis tachycardia--Check EKG-->sinus tachycardia cultures negative continue meds more calm now on seroquel added dietary supplements may need STR PT eval dc iv fluids Problem List - Problems (1) Viral meningitis Code(s): A87.9 - VIRAL MENINGITIS, UNSPECIFIED (2) Dementia Code(s): F03.90 - UNSPECIFIED DEMENTIA WITHOUT BEHAVIORAL DISTURBANCE (3) AMS (altered mental status) Code(s): R41.82 - ALTERED MENTAL STATUS, UNSPECIFIED Qualifiers: Altered mental status type: disorientation Qualified Code(s): R41.0 - Disorientation, unspecified (4) Fever Code(s): R50.9 - FEVER, UNSPECIFIED Qualifiers: Fever type: unspecified Qualified Code(s): R50.9 - Fever, unspecified (5) Leukocytosis Code(s): D72.829 - ELEVATED WHITE BLOOD CELL COUNT, UNSPECIFIED Qualifiers: Leukocytosis type: unspecified Qualified Code(s): D72.829 - Elevated white blood cell count, unspecified
[2019-06-04] MEDS: ATORVASTATIN CA 20 MG TABLET (FP) PO SCH (21:58)
[2019-06-05] MEDS: INSULIN SLIDING SCALE (NOVOLOG) 1 VIAL SQ SCH ×3 (06:39→17:36)
[2019-06-05] MEDS: QUEtiapine FUMARATE 25 MG TABLET (FP) PO SCH ×3 (06:40→22:18)
[2019-06-05] MEDS: LEVOTHYROXINE NA 50 MCG TABLET (FP) PO SCH (06:40)
[2019-06-05] MEDS: VITAMIN B COMPLEX W/C COMBO TABLET (FP) PO SCH (10:07)
[2019-06-05] MEDS: PANTOPRAZOLE 40 MG TABLET (FP) PO SCH (10:07)
[2019-06-05] MEDS: DONEPEZIL HCL 10 MG TABLET (FP) PO SCH (10:07)
[2019-06-05] MEDS: LISINOPRIL 10 MG TABLET (FP) PO SCH (10:07)
[2019-06-05] MEDS: ENOXAPARIN NA (PORCINE) 40 MG/0.4 ML DISP.SYRIN SQ SCH (10:07)
[2019-06-05] MEDS: SODIUM CHLORIDE 1,000 ML IV SCH (10:07)
--- NOTE | 2019-06-05 11:16 | PN ---
Progress Note (short form) - Note Progress Note: events noted calm now eating better per COLLECTIONS AGENT no distress IV antibiotics dc Vital Signs - 24 hr 06/04/19 06/04/19 06/04/19 14:00 18:00 21:00 Temperature 100.1 F H 99.1 F Pulse Rate 106 H 116 H Respiratory 20 20 Rate Blood Pressure 106/56 L 133/71 O2 Sat by Pulse 96 Oximetry (%) 06/04/19 06/05/19 06/05/19 21:58 01:00 05:00 Temperature 98.7 F 97.7 F 99.1 F Pulse Rate 120 H 96 H 102 H Respiratory 20 20 20 Rate Blood Pressure 146/73 130/62 135/69 O2 Sat by Pulse Oximetry (%) 06/05/19 10:00 Temperature 98.4 F Pulse Rate 99 H Respiratory 17 Rate Blood Pressure 116/62 O2 Sat by Pulse Oximetry (%) Current Medications Generic Name Dose Route Start Last Admin Trade Name Freq PRN Reason Stop Dose Admin Atorvastatin Calcium 20 mg 05/30/19 22:00 06/04/19 21:58 Lipitor - PO 20 mg HS ARAVIND Administration Donepezil HCl 10 mg 06/03/19 12:15 06/05/19 10:07 Aricept - PO 10 mg DAILY ARAVIND Administration Enoxaparin Sodium 40 mg 05/30/19 10:00 06/05/19 10:07 Lovenox - SQ 40 mg DAILY ARAVIND Administration Insulin Aspart 1 vial 05/30/19 07:00 06/05/19 06:39 Novolog Vial Sliding Scale - SQ 2 units TIDAC ARAVIND Administration Protocol Levothyroxine Sodium 50 mcg 05/31/19 07:00 06/05/19 06:40 Synthroid - PO 50 mcg DAILY@0700 ARAVIND Administration Lisinopril 10 mg 05/31/19 10:00 06/05/19 10:07 Prinivil PO 10 mg DAILY ARAVIND Administration Lorazepam 1 mg 06/05/19 11:15 Ativan Injection - IVPUSH TID PRN ANXIETY Melatonin 10 mg 06/05/19 22:00 Melatonin PO HS ARAVIND Multivitamins 1 each 05/31/19 10:00 06/05/19 10:07 Total B With C - PO 1 each DAILY ARAVIND Administration Pantoprazole Sodium 40 mg 05/31/19 10:00 11/28/19 10:07 Protonix - PO 40 mg DAILY ARAVIND Administration Quetiapine Fumarate 25 mg 05/30/19 14:00 06/05/19 06:40 Seroquel - PO 25 mg TID ARAVIND Administration Laboratory Results - last 24 hr 05/30/19 06/04/19 06/04/19 01:30 12:37 19:03 POC Glucometer 276 301 EBV EA IgG Ab Interp <5.0 06/05/19 06:34 POC Glucometer 158 EBV EA IgG Ab Interp S1 S2 RRR, dropped beat? Lungs clear Abd-soft,NT No edema PLAN iv antibiotics dc all cultures negative ruled out for meningitis tachycardia--Check EKG-->sinus tachycardia cultures negative continue meds more calm now on seroquel added dietary supplements may need STR PT eval dc iv fluids constant supervision dc at 11am today pt is calm Ativan prn Problem List - Problems (1) Viral meningitis Code(s): A87.9 - VIRAL MENINGITIS, UNSPECIFIED (2) Dementia Code(s): F03.90 - UNSPECIFIED DEMENTIA WITHOUT BEHAVIORAL DISTURBANCE (3) AMS (altered mental status) Code(s): R41.82 - ALTERED MENTAL STATUS, UNSPECIFIED Qualifiers: Altered mental status type: disorientation Qualified Code(s): R41.0 - Disorientation, unspecified (4) Fever Code(s): R50.9 - FEVER, UNSPECIFIED Qualifiers: Fever type: unspecified Qualified Code(s): R50.9 - Fever, unspecified (5) Leukocytosis Code(s): D72.829 - ELEVATED WHITE BLOOD CELL COUNT, UNSPECIFIED Qualifiers: Leukocytosis type: unspecified Qualified Code(s): D72.829 - Elevated white blood cell count, unspecified
[2019-06-05] MEDS: MELATONIN 5 MG TABLETS PO SCH (22:18)
[2019-06-05] MEDS: ATORVASTATIN CA 20 MG TABLET (FP) PO SCH (22:18)
[2019-06-05] MEDS: LORazepam 2 MG/ML SDV VIAL IVPUSH PRN (22:19)
[2019-06-06] MEDS: QUEtiapine FUMARATE 25 MG TABLET (FP) PO SCH ×3 (06:10→22:19)
[2019-06-06] MEDS: LEVOTHYROXINE NA 50 MCG TABLET (FP) PO SCH (06:10)
[2019-06-06] MEDS: INSULIN SLIDING SCALE (NOVOLOG) 1 VIAL SQ SCH ×3 (06:11→17:18)
[2019-06-06] MEDS ORDERED: PT OWN MED DRAWER 7, Y5N ONE (09:54)
[2019-06-06] MEDS: LISINOPRIL 10 MG TABLET (FP) PO SCH (09:56)
[2019-06-06] MEDS: ENOXAPARIN NA (PORCINE) 40 MG/0.4 ML DISP.SYRIN SQ SCH (09:56)
[2019-06-06] MEDS: DONEPEZIL HCL 10 MG TABLET (FP) PO SCH (09:56)
[2019-06-06] MEDS: VITAMIN B COMPLEX W/C COMBO TABLET (FP) PO SCH (09:56)
[2019-06-06] MEDS: PANTOPRAZOLE 40 MG TABLET (FP) PO SCH (09:56)
--- NOTE | 2019-06-06 11:20 | PN ---
Progress Note (short form) - Note Progress Note: 79 year old male with a history of dementia, ethanol abuse, hypertension, diabetes, hyperlipidemia, and prior history of CVA initially presented to the ED for several days of altered mental status, brought in with . Per report, patient started with a headache, fevers, and became aggressive with . He came in with fevers, elevated white count and tachycardia. Patient was empirically started on therapy for meningitis. Lumbar puncture was performed and found mildly elevated protein but unremarkable white count and negative gram stain. Other serologic studies are pending. Per nurse, patient just received ativan and is sleeping, being difficult to arouse. Patient denies any current complaints. There is reported recent travel to [place] with history of good ADLs. Patient is waiting for placement and remains confused Neurological examinatoin VSS, patient is awake and watching tv, neck is supple oriented x 1 pupils reactive no face asymmetry moving all extremity reflex are generlaized diminished ASSESSMENT/PLAN: 79 year old male with a history of dementia, ethanol abuse, hypertension, diabetes, hyperlipidemia, and prior history of CVA . No evidence of stroke or meningitis. Plan Waiting for placement Thanking you so much Lazara Cabello MD
--- NOTE | 2019-06-06 12:05 | PN ---
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 no distress IV antibiotics dc Vital Signs - 24 hr 06/05/19 06/05/19 06/05/19 14:00 18:00 21:00 Temperature 98.3 F 98.6 F Pulse Rate 108 H 100 H Respiratory 18 20 Rate Blood Pressure 122/69 146/75 O2 Sat by Pulse 97 Oximetry (%) 06/05/19 06/06/19 06/06/19 22:17 02:06 06:08 Temperature 99.7 F H 98.8 F 97.5 F L Pulse Rate 106 H 102 H 98 H Respiratory 20 20 20 Rate Blood Pressure 140/64 121/65 125/70 O2 Sat by Pulse Oximetry (%) 06/06/19 10:00 Temperature 97.9 F Pulse Rate 96 H Respiratory 18 Rate Blood Pressure 144/75 O2 Sat by Pulse Oximetry (%) Current Medications Generic Name Dose Route Start Last Admin Trade Name Freq PRN Reason Stop Dose Admin Atorvastatin Calcium 20 mg 05/30/19 22:00 06/05/19 22:18 Lipitor - PO 20 mg HS ARAVIND Administration Donepezil HCl 10 mg 06/03/19 12:15 06/06/19 09:56 Aricept - PO 10 mg DAILY ARAVIND Administration Enoxaparin Sodium 40 mg 05/30/19 10:00 06/06/19 09:56 Lovenox - SQ 40 mg DAILY ARAVIND Administration Insulin Aspart 1 vial 05/30/19 07:00 06/06/19 06:11 Novolog Vial Sliding Scale - SQ Not Given TIDAC [facility] Protocol Levothyroxine Sodium 50 mcg 05/31/19 07:00 06/06/19 06:10 Synthroid - PO 50 mcg DAILY@0700 ARAVIND Administration Lisinopril 10 mg 05/31/19 10:00 06/06/19 09:56 Prinivil PO 10 mg DAILY ARAVIND Administration Lorazepam 1 mg 06/05/19 11:15 06/05/19 22:19 Ativan Injection - IVPUSH 1 mg Q8H PRN Administration ANXIETY Melatonin 10 mg 06/05/19 22:00 06/05/19 22:18 Melatonin PO 10 mg HS ARAVIND Administration Multivitamins 1 each 05/31/19 10:00 06/06/19 09:56 Total B With C - PO 1 each DAILY ARAVIND Administration Pantoprazole Sodium 40 mg 05/31/19 10:00 06/06/19 09:56 Protonix - PO 40 mg DAILY ARAVIND Administration Quetiapine Fumarate 25 mg 05/30/19 14:00 06/06/19 06:10 Seroquel - PO 25 mg TID ARAVIND Administration Laboratory Results - last 24 hr 06/05/19 06/05/19 06/05/19 12:48 17:34 19:18 POC Glucometer 181 408 204 06/05/19 06/06/19 22:10 05:44 POC Glucometer 175 122 S1 S2 RRR Lungs clear Abd-soft,NT No edema PLAN iv antibiotics dc all cultures negative ruled out for meningitis cultures negative continue meds more calm now on seroquel added dietary supplements may need STR PT eval dc iv fluids Problem List - Problems (1) Viral meningitis Code(s): A87.9 - VIRAL MENINGITIS, UNSPECIFIED (2) Dementia Code(s): F03.90 - UNSPECIFIED DEMENTIA WITHOUT BEHAVIORAL DISTURBANCE (3) AMS (altered mental status) Code(s): R41.82 - ALTERED MENTAL STATUS, UNSPECIFIED Qualifiers: Altered mental status type: disorientation Qualified Code(s): R41.0 - Disorientation, unspecified (4) Fever Code(s): R50.9 - FEVER, UNSPECIFIED Qualifiers: Fever type: unspecified Qualified Code(s): R50.9 - Fever, unspecified (5) Leukocytosis Code(s): D72.829 - ELEVATED WHITE BLOOD CELL COUNT, UNSPECIFIED Qualifiers: Leukocytosis type: unspecified Qualified Code(s): D72.829 - Elevated white blood cell count, unspecified
[2019-06-06 15:22] LABS: HEMATOCRIT 33.4 % (35.4-49); HEMOGLOBIN 10.9 GM/dL (11.7-16.9); MCH 29.7 pg (25.7-33.7); MCHC 32.6 g/dl (32.0-35.9); MEAN CELL VOLUME 91.1 fl (80-96); MEAN PLT VOLUME 9.4 fl (7.5-11.1); PLATELET COUNT 437 K/MM3 (134-434); RBC 3.67 M/mm3 (4.00-5.60); RDW 13.6 % (11.9-15.9); WHITE BLOOD COUNT 12.3 K/mm3 (4.0-10.0)
[2019-06-06 15:44] LABS: BLOOD UREA NITROGEN 12.9 mg/dL (7-18); CALCIUM 8.3 mg/dL (8.5-10.1); POTASSIUM 3.7 mmol/L (3.5-5.1)
[2019-06-06] MEDS: LORazepam 2 MG/ML SDV VIAL IVPUSH PRN (22:19)
[2019-06-06] MEDS: ATORVASTATIN CA 20 MG TABLET (FP) PO SCH (22:19)
[2019-06-06] MEDS: MELATONIN 5 MG TABLETS PO SCH (22:21)
[2019-06-07] MEDS: QUEtiapine FUMARATE 25 MG TABLET (FP) PO SCH ×3 (06:38→21:16)
[2019-06-07] MEDS: LEVOTHYROXINE NA 50 MCG TABLET (FP) PO SCH (06:38)
[2019-06-07] MEDS: INSULIN SLIDING SCALE (NOVOLOG) 1 VIAL SQ SCH ×3 (06:38→17:42)
[2019-06-07] MEDS ORDERED: PT OWN MED DRAWER 7, Y5N ONE (11:01)
[2019-06-07] MEDS: PANTOPRAZOLE 40 MG TABLET (FP) PO SCH (11:07)
[2019-06-07] MEDS: LISINOPRIL 10 MG TABLET (FP) PO SCH (11:07)
[2019-06-07] MEDS: DONEPEZIL HCL 10 MG TABLET (FP) PO SCH (11:07)
[2019-06-07] MEDS: ENOXAPARIN NA (PORCINE) 40 MG/0.4 ML DISP.SYRIN SQ SCH (12:33)
--- NOTE | 2019-06-07 13:04 | PN ---
Progress Note (short form) - Note Progress Note: events noted calm now pt remains calm -- not on constant supervision now He is not aggressive or agitated but he got up and is unsteady and was found sitting on the floor denies head injuries Pt is awake, eating lunch CT head- negative Xrays of hips and pelvis done and is pending Vital Signs - 24 hr 06/06/19 06/06/19 06/06/19 14:00 18:00 22:00 Temperature 98.1 F 97.6 F Pulse Rate 98 H 100 H Respiratory 18 19 Rate Blood Pressure 121/59 L 127/58 L O2 Sat by Pulse 96 Oximetry (%) 06/06/19 06/07/19 06/07/19 22:16 06:00 09:10 Temperature 98.3 F 97.9 F 97 F L Pulse Rate 99 H 90 91 H Respiratory 20 20 20 Rate Blood Pressure 140/79 136/80 118/63 O2 Sat by Pulse Oximetry (%) 06/07/19 06/07/19 06/07/19 10:00 10:56 12:00 Temperature 97.9 F 97.7 F Pulse Rate 86 88 87 Respiratory 20 20 20 Rate Blood Pressure 115/63 128/59 L 137/68 O2 Sat by Pulse Oximetry (%) Current Medications Generic Name Dose Route Start Last Admin Trade Name Freq PRN Reason Stop Dose Admin Atorvastatin Calcium 20 mg 05/30/19 22:00 06/06/19 22:19 Lipitor - PO 20 mg HS ARAVIND Administration Donepezil HCl 10 mg 06/03/19 12:15 06/07/19 11:07 Aricept - PO 10 mg DAILY ARAVIND Administration Enoxaparin Sodium 40 mg 05/30/19 10:00 06/07/19 12:33 Lovenox - SQ 40 mg DAILY ARAVIND Administration Insulin Aspart 1 vial 05/30/19 07:00 06/07/19 12:23 Novolog Vial Sliding Scale - SQ 4 units TIDAC ARAVIND Administration Protocol Levothyroxine Sodium 50 mcg 05/31/19 07:00 06/07/19 06:38 Synthroid - PO 50 mcg DAILY@0700 ARAVIND Administration Lisinopril 10 mg 05/31/19 10:00 06/07/19 11:07 Prinivil PO 10 mg DAILY ARAVIND Administration Lorazepam 1 mg 06/05/19 11:15 06/06/19 22:19 Ativan Injection - IVPUSH 1 mg Q8H PRN Administration ANXIETY Melatonin 10 mg 06/05/19 22:00 06/06/19 22:21 Melatonin PO 10 mg HS ARAVIND Administration Multivitamins 1 each 05/31/19 10:00 06/06/19 09:56 Total B With C - PO 1 each DAILY ARAVIND Administration Pantoprazole Sodium 40 mg 05/31/19 10:00 06/07/19 11:07 Protonix - PO 40 mg DAILY ARAVIND Administration Quetiapine Fumarate 25 mg 05/30/19 14:00 06/07/19 06:38 Seroquel - PO 25 mg TID ARAVIND Administration Laboratory Results - last 24 hr 06/06/19 06/06/19 06/06/19 13:05 14:58 14:58 WBC 12.3 H RBC 3.67 L Hgb 10.9 L Hct 33.4 L MCV 91.1 MCH 29.7 MCHC 32.6 RDW 13.6 Plt Count 437 H D MPV 9.4 Sodium 140 Potassium 3.7 Chloride 106 Carbon Dioxide 26 Anion Gap 9 BUN 12.9 Creatinine 1.0 Est GFR (CKD-EPI)AfAm 82.60 Est GFR (CKD-EPI)NonAf 71.27 POC Glucometer 247 Random Glucose 295 H Calcium 8.3 L 06/06/19 06/07/19 06/07/19 17:08 06:35 12:22 WBC RBC Hgb Hct MCV MCH MCHC RDW Plt Count MPV Sodium Potassium Chloride Carbon Dioxide Anion Gap BUN Creatinine Est GFR (CKD-EPI)AfAm Est GFR (CKD-EPI)NonAf POC Glucometer 353 302 231 Random Glucose Calcium S1 S2 RRR Lungs clear Abd-soft,NT No edema PLAN s/p fall-- ct head negative needs STR for gait training and strength increase seroquel iv antibiotics dc all cultures negative ruled out for meningitis cultures negative continue meds more calm now on seroquel added dietary supplements may need STR PT eval dc iv fluids Problem List - Problems (1) Viral meningitis Code(s): A87.9 - VIRAL MENINGITIS, UNSPECIFIED (2) Dementia Code(s): F03.90 - UNSPECIFIED DEMENTIA WITHOUT BEHAVIORAL DISTURBANCE (3) AMS (altered mental status) Code(s): R41.82 - ALTERED MENTAL STATUS, UNSPECIFIED Qualifiers: Altered mental status type: disorientation Qualified Code(s): R41.0 - Disorientation, unspecified (4) Fever Code(s): R50.9 - FEVER, UNSPECIFIED Qualifiers: Fever type: unspecified Qualified Code(s): R50.9 - Fever, unspecified (5) Leukocytosis Code(s): D72.829 - ELEVATED WHITE BLOOD CELL COUNT, UNSPECIFIED Qualifiers: Leukocytosis type: unspecified Qualified Code(s): D72.829 - Elevated white blood cell count, unspecified
[2019-06-07] MEDS: VITAMIN B COMPLEX W/C COMBO TABLET (FP) PO SCH (14:03)
[2019-06-07] MEDS: MELATONIN 5 MG TABLETS PO SCH (21:18)
[2019-06-07] MEDS: ATORVASTATIN CA 20 MG TABLET (FP) PO SCH (21:18)
[2019-06-07] MEDS: LORazepam 2 MG/ML SDV VIAL IVPUSH PRN (21:20)
[2019-06-08] MEDS ORDERED: ZOLPIDEM TARTRATE 5 MG TABLET PO ONE (00:51)
[2019-06-08] MEDS: INSULIN SLIDING SCALE (NOVOLOG) 1 VIAL SQ SCH ×3 (06:10→17:28)
[2019-06-08] MEDS: LEVOTHYROXINE NA 50 MCG TABLET (FP) PO SCH (06:11)
[2019-06-08] MEDS: QUEtiapine FUMARATE 25 MG TABLET (FP) PO SCH ×3 (06:11→21:56)
--- NOTE | 2019-06-08 08:40 | PN ---
Progress Note (short form) - Note Progress Note: events noted calm now he was awake all night-- was getting out of bed, not sleeping at all Vital Signs - 24 hr 06/07/19 06/07/19 06/07/19 09:10 10:00 10:56 Temperature 97 F L 97.9 F Pulse Rate 91 H 86 88 Respiratory 20 20 20 Rate Blood Pressure 118/63 115/63 128/59 L O2 Sat by Pulse 97 Oximetry (%) 06/07/19 06/07/19 06/07/19 12:00 14:00 16:00 Temperature 97.7 F 98.4 F 97.6 F Pulse Rate 87 93 H 73 Respiratory 20 20 20 Rate Blood Pressure 137/68 113/79 122/66 O2 Sat by Pulse Oximetry (%) 06/07/19 06/07/19 06/07/19 18:00 20:00 21:11 Temperature 98.5 F 97.9 F 97.9 F Pulse Rate 99 H 93 H 93 H Respiratory 20 20 20 Rate Blood Pressure 131/60 142/78 142/78 O2 Sat by Pulse Oximetry (%) 06/07/19 06/08/19 06/08/19 22:00 04:00 06:00 Temperature 97.5 F L 97.5 F L Pulse Rate 111 H 114 H Respiratory 20 20 Rate Blood Pressure 124/80 124/68 O2 Sat by Pulse 98 Oximetry (%) Current Medications Generic Name Dose Route Start Last Admin Trade Name Freq PRN Reason Stop Dose Admin Atorvastatin Calcium 20 mg 05/30/19 22:00 06/07/19 21:18 Lipitor - PO 20 mg HS ARAVIND Administration Donepezil HCl 10 mg 06/03/19 12:15 06/07/19 11:07 Aricept - PO 10 mg DAILY ARAVIND Administration Enoxaparin Sodium 40 mg 05/30/19 10:00 06/07/19 12:33 Lovenox - SQ 40 mg DAILY ARAVIND Administration Insulin Aspart 1 vial 05/30/19 07:00 06/08/19 06:10 Novolog Vial Sliding Scale - SQ 6 units TIDAC ARAVIND Administration Protocol Levothyroxine Sodium 50 mcg 05/31/19 07:00 06/08/19 06:11 Synthroid - PO 50 mcg DAILY@0700 ARAVIND Administration Lisinopril 10 mg 05/31/19 10:00 06/07/19 11:07 Prinivil PO 10 mg DAILY ARAVIND Administration Lorazepam 1 mg 06/05/19 11:15 06/07/19 21:20 Ativan Injection - IVPUSH 1 mg Q8H PRN Administration ANXIETY Melatonin 10 mg 06/05/19 22:00 06/07/19 21:18 Melatonin PO 10 mg HS ARAVIND Administration Multivitamins 1 each 05/31/19 10:00 06/07/19 14:03 Total B With C - PO 1 each DAILY ARAVIND Administration Pantoprazole Sodium 40 mg 05/31/19 10:00 06/07/19 11:07 Protonix - PO 40 mg DAILY ARAVIND Administration Quetiapine Fumarate 50 mg 06/07/19 13:04 06/08/19 06:11 Seroquel - PO 50 mg TID ARAVIND Administration Laboratory Results - last 24 hr 06/07/19 06/07/19 06/07/19 12:22 17:40 21:06 POC Glucometer 231 262 269 06/08/19 06:07 POC Glucometer 276 S1 S2 RRR Lungs clear Abd-soft,NT No edema PLAN s/p fall-- ct head negative needs STR for gait training and strength increase seroquel iv antibiotics dc all cultures negative ruled out for meningitis cultures negative continue meds more calm now on seroquel added dietary supplements may need STR PT eval dc iv fluids psychiatry eval pt is sun- downing add Namenda Problem List - Problems (1) Viral meningitis Code(s): A87.9 - VIRAL MENINGITIS, UNSPECIFIED (2) Dementia Code(s): F03.90 - UNSPECIFIED DEMENTIA WITHOUT BEHAVIORAL DISTURBANCE (3) AMS (altered mental status) Code(s): R41.82 - ALTERED MENTAL STATUS, UNSPECIFIED Qualifiers: Altered mental status type: disorientation Qualified Code(s): R41.0 - Disorientation, unspecified (4) Fever Code(s): R50.9 - FEVER, UNSPECIFIED Qualifiers: Fever type: unspecified Qualified Code(s): R50.9 - Fever, unspecified (5) Leukocytosis Code(s): D72.829 - ELEVATED WHITE BLOOD CELL COUNT, UNSPECIFIED Qualifiers: Leukocytosis type: unspecified Qualified Code(s): D72.829 - Elevated white blood cell count, unspecified
--- NOTE | 2019-06-08 11:10 | PN ---
Progress Note (short form) - Note Progress Note: 79 year old male with a history of dementia, ethanol abuse, hypertension, diabetes, hyperlipidemia, and prior history of CVA initially presented to the ED for several days of altered mental status, brought in with . Per report, patient started with a headache, fevers, and became aggressive with . He came in with fevers, elevated white count and tachycardia. Patient was empirically started on therapy for meningitis. Lumbar puncture was performed and found mildly elevated protein but unremarkable white count and negative gram stain. Other serologic studies are pending. Per nurse, patient just received ativan and is sleeping, being difficult to arouse. Patient denies any current complaints. There is reported recent travel to [place] with history of good ADLs. Patient is waiting for placement and remains confused , no new complain, he has recenlty been started on aricept and namenda Neurological examinatoin VSS, patient is awake and watching tv, neck is supple oriented x 1 pupils reactive no face asymmetry moving all extremity reflex are generlaized diminished ct hea dunremarkable csf was benign ASSESSMENT/PLAN: 79 year old male with a history of dementia, ethanol abuse, hypertension, diabetes, hyperlipidemia, and prior history of CVA . No evidence of stroke or meningitis. Plan Waiting for placement continue aricept and namenda Thanking you so much Lazara Cabello MD
[2019-06-08] MEDS ORDERED: PT OWN MED DRAWER 7, Y5N ONE (11:58)
[2019-06-08] MEDS: VITAMIN B COMPLEX W/C COMBO TABLET (FP) PO SCH (12:01)
[2019-06-08] MEDS: PANTOPRAZOLE 40 MG TABLET (FP) PO SCH (12:01)
[2019-06-08] MEDS: MEMANTINE HCL 10 MG TABLET (FP) PO SCH ×2 (12:01→21:58)
[2019-06-08] MEDS: ENOXAPARIN NA (PORCINE) 40 MG/0.4 ML DISP.SYRIN SQ SCH (12:01)
[2019-06-08] MEDS: LISINOPRIL 10 MG TABLET (FP) PO SCH (12:07)
[2019-06-08] MEDS: DONEPEZIL HCL 10 MG TABLET (FP) PO SCH (12:07)
[2019-06-08] MEDS: MELATONIN 5 MG TABLETS PO SCH (21:57)
[2019-06-08] MEDS: ATORVASTATIN CA 20 MG TABLET (FP) PO SCH (21:58)
[2019-06-09] MEDS: QUEtiapine FUMARATE 25 MG TABLET (FP) PO SCH (07:52)
[2019-06-09] MEDS: INSULIN SLIDING SCALE (NOVOLOG) 1 VIAL SQ SCH ×2 (07:52→11:54)
[2019-06-09] MEDS: LEVOTHYROXINE NA 50 MCG TABLET (FP) PO SCH (07:53)
[2019-06-09] MEDS: LISINOPRIL 10 MG TABLET (FP) PO SCH (09:59)
[2019-06-09] MEDS: VITAMIN B COMPLEX W/C COMBO TABLET (FP) PO SCH (09:59)
[2019-06-09] MEDS: PANTOPRAZOLE 40 MG TABLET (FP) PO SCH (09:59)
[2019-06-09] MEDS: MEMANTINE HCL 10 MG TABLET (FP) PO SCH (09:59)
[2019-06-09] MEDS: DONEPEZIL HCL 10 MG TABLET (FP) PO SCH (09:59)
[2019-06-09] MEDS: ENOXAPARIN NA (PORCINE) 40 MG/0.4 ML DISP.SYRIN SQ SCH (09:59)
[2019-06-09 10:04] VITALS: BP 123/58; PULSE 89; TEMP 97.5
--- NOTE | 2019-06-09 10:22 | PN ---
Progress Note (short form) - Note Progress Note: 79 year old male with a history of dementia, ethanol abuse, hypertension, diabetes, hyperlipidemia, and prior history of CVA initially presented to the ED for several days of altered mental status, brought in with . Per report, patient started with a headache, fevers, and became aggressive with . He came in with fevers, elevated white count and tachycardia. Patient was empirically started on therapy for meningitis. Lumbar puncture was performed and found mildly elevated protein but unremarkable white count and negative gram stain. Other serologic studies are pending. Per nurse, patient just received ativan and is sleeping, being difficult to arouse. Patient denies any current complaints. No new complain, he has no restrain and no significant agitation. He is waiting fo rplacemen t Neurological examinatoin VSS, patient is awake and watching tv, neck is supple oriented x 1 pupils reactive no face asymmetry moving all extremity reflex are generlaized diminished ct hea dunremarkable csf was benign ASSESSMENT/PLAN: 79 year old male with a history of dementia, ethanol abuse, hypertension, diabetes, hyperlipidemia, and prior history of CVA . No evidence of stroke or meningitis. Plan Waiting for placement continue aricept and namenda ( both medication has benefitted him) Thanking you so much Lazara Cabello MD
--- NOTE | 2019-06-09 10:29 | PN ---
Progress Note (short form) - Note Progress Note: Spoke to staff, Patients behaviour has subsided significantly, had a good night. Scheduled to be transferred back to [facility].
--- NOTE | 2019-06-09 12:32 | DS ---
Physical Examination Vital Signs: Vital Signs Temperature 97.5 F L 06/09/19 10:03 Pulse Rate 89 06/09/19 10:03 Respiratory Rate 20 06/09/19 10:03 Blood Pressure 123/58 L 06/09/19 10:03 O2 Sat by Pulse Oximetry (%) 96 06/08/19 11:30 Findings/Remarks: Pt seen/ examined chart is reviewed calm all f/u noted Constitutional: Yes: No Distress Eyes: Yes: Conjunctiva Clear Neck: Yes: Supple Cardiovascular: Yes: Regular Rate and Rhythm Respiratory: Yes: CTA Bilaterally Gastrointestinal: Yes: Soft Edema: No Neurological: Yes: Alert Labs: CBC, BMP 06/06/19 14:58 06/06/19 14:58 Discharge Summary Problems reviewed: Yes Reason For Visit: FEVER,LEUKOCYTOSIS,ALTERED MENTAL STATUS Current Active Problems AMS (altered mental status) (Acute) Dementia (Acute) Fever (Acute) Leukocytosis (Acute) Viral meningitis (Acute) Hospital Course: This is a 79 y/o M with a PMHx of dementia (1 yr), ETOH abuse (quit 3 mths ago was drinking pint vodka 2Xwk), HTN, NIDDM, HLD, and CVA BIBA via EMS with his due to AMS and aggression. Per , pt has been increasingly agitated for the past two days. He was unable to recognize his or answer any of her questions. He was overly aggressive, including screaming and throwing objects, which prompted the to call 911. admitted for possible Meningitis-- treated with abx csf cultures taken- eventually -ve and abx d/yashira i/d followed also seen by psyc and neuro for agitation and dementia better with aricept and Namenda Now stable for d/c to nursing =home off abx meds reconcilled d/w supervisor case loading and RN also Condition: Stable - Instructions Referrals: Mickey Gallegos MD [Primary Care Provider] - Disposition: [facility] F[facility]ILITY - Home Medications Comprehensive Discharge Medication List: Ambulatory Orders Levothyroxine [Synthroid -] 50 mcg PO DAILY 05/29/19 Lisinopril [Prinivil] 10 mg PO DAILY 05/29/19 Omeprazole 40 mg PO DAILY 05/29/19 Simvastatin [Zocor] 40 mg PO HS 05/29/19 Vit B1 Mn/B2/B3/B5/B6/B12/C/FA [B Complex with Vitamin C Tab] 1 each PO DAILY metFORMIN HCL [Metformin ER Gastric] 500 mg PO BID 05/29/19 Donepezil HCl [Aricept -] 10 mg PO DAILY 06/02/19 Donepezil HCl [Aricept -] 10 mg PO DAILY tablet 06/09/19 Enoxaparin [Lovenox -] 40 mg SQ DAILY disp.syrin 06/09/19 Insulin Sliding Scale [Novolog Vial Sliding Scale -] 1 vial SQ TIDAC units 08/27 Melatonin 10 mg PO HS tab 06/09/19 Memantine HCl [Namenda -] 10 mg PO BID tablet 06/09/19 Quetiapine Fumarate [Seroquel -] 50 mg PO TID tablet 06/09/19
== END 2019-06-09 12:47 | DRG 884 ==
LOC: JER 18:15 → JERBED 05-30 02:14 → J5S 05-30 04:17
PROVIDERS: ADMIT Internal Medicine; ATTEND Internal Medicine
PROC: 009U3ZX Drainage of Spinal Canal, Percutaneous Approach, Diagnostic (ICD-10-PCS; principal; 2019-05-29)
DX: F03.91 Unspecified dementia, unspecified severity, with behavioral disturbance (principal); I10 Essential (primary) hypertension; E78.5 Hyperlipidemia, unspecified; E11.9 Type 2 diabetes mellitus without complications; Z86.73 Personal history of transient ischemic attack (TIA), and cerebral infarction without residual deficits; Z79.84 Long term (current) use of oral hypoglycemic drugs; F10.10 Alcohol abuse, uncomplicated; D64.9 Anemia, unspecified; E83.51 Hypocalcemia; E03.9 Hypothyroidism, unspecified; R50.9 Fever, unspecified
CPT/HCPCS: 36415; 70450-TC; 71045-TC-FY; 73502-TC-LT-FY; 73502-TC-RT-FY; 80048; 80053; 80307; 81003; 82140; 82550; 82553; 82728; 82803; 82945; 82962; 83540; 83550; 83605; 83735; 83970; 84100; 84157; 84443; 84484; 85025; 85027; 85610; 85651; 85730; 86592; 86593; 86658; 86663; 86664; 86665; 86788; 86789; 86850; 86900; 86901; 87040; 87070; 87086; 87205; 87389; 87476; 87529; 87899; 93005; 93010; 93970-TC; 97116-GP; 97161-GP; 99284-25; J0131; J7030

== ENCOUNTER 2021-01-16 21:33 | Inpatient (IN) | payer OTHER ==
[2021-01-16] MEDS ORDERED: LACTATED RINGERS SOLUTION 1000 ML INFUS.BAG IV ONE ×2 (22:17→23:27)
[2021-01-16] MEDS ORDERED: dilTIAZem HCL 30 MG TABLET PO ONE (22:29)
[2021-01-16] MEDS ORDERED: CLINDAMYCIN 600MG PREMIX IVPB 600 MG/50 ML BAG IVPB ONE ×2 (22:40→22:54)
[2021-01-16] MEDS ORDERED: ACETAMINOPHEN 1000 MG/100 ML VIAL (NON FORMULARY) IVPB ONE (22:40)
[2021-01-16] MEDS ORDERED: ACETAMINOPHEN INJECTION 100 ML IVPB ONE (22:45)
[2021-01-16] MEDS ORDERED: VANCOMYCIN 1,000 MG in DEXTROSE 5%-WATER - 250 ML IVPB ONE (22:45)
[2021-01-16 22:46] LABS: BASO % 0.3 % (0-2.0); HEMATOCRIT 32.4 % (35.4-49); HEMOGLOBIN 10.8 GM/dL (11.7-16.9); LYMPH % 2.7 % (8-40); MCH 29.1 pg (25.7-33.7); MCHC 33.2 g/dl (32.0-35.9); MEAN CELL VOLUME 87.6 fl (80-96); MEAN PLT VOLUME 9.2 fl (7.5-11.1); MONO % 7.1 % (3.8-10.2); NEUT % 89.9 % (42.8-82.8); PLATELET COUNT 255 10^3/uL (134-434); RDW 13.2 % (11.9-15.9); WHITE BLOOD COUNT 25.1 K/mm3 (4.0-10.0)
[2021-01-16 22:55] LABS: CHLORIDE 101 mmol/L (98-107); SODIUM 135 mmol/L (136-145)
[2021-01-16 22:56] LABS: CALCIUM 8.3 mg/dL (8.5-10.1)
[2021-01-16 22:57] LABS: ANION GAP 9 MMOL/L (8-16); BLOOD UREA NITROGEN 34.6 mg/dL (7-18); CO2 25 mmol/L (21-32); GLUCOSE,RANDOM 318 mg/dL (74-106)
[2021-01-16 23:00] LABS: CREATININE 1.8 mg/dL (0.55-1.3)
[2021-01-16] MEDS ORDERED: MORPHINE SULFATE 2 MG/ML VIAL ONE (23:19)
[2021-01-16] MEDS ORDERED: morphine CARPU-JECT 4 MG/1 ML DISP.SYRIN IVPUSH ONE (23:19)
[2021-01-16] MEDS ORDERED: VANCOMYCIN 1 GRAM (PRE-DOCKED) 1,000 MG/250 ML BAG IVPB ONE (23:42)
[2021-01-16 23:50] LABS: ANISOCYTOSIS 1+; MACROCYTOSIS 0; PLATELET ESTIMATE NORMAL
[2021-01-17] MEDS: SODIUM CHLORIDE 1,000 ML IV SCH ×2 (06:13→16:31)
[2021-01-17] MEDS: HEPARIN NA (PORCINE) 5,000 UNITS/ML 1ML VIAL SQ SCH ×3 (06:14→22:15)
[2021-01-17] MEDS: CLINDAMYCIN 600MG PREMIX IVPB 600 MG/50 ML BAG IVPB SCH ×2 (06:14→10:44)
[2021-01-17] MEDS: INSULIN SLIDING SCALE (NOVOLOG) 1 VIAL SQ SCH ×4 (06:26→22:17)
[2021-01-17] MEDS ORDERED: INSULIN (NOVOLOG) ASPART 100 UNITS/ML 10ML VIAL ONE ×2 (06:29→11:01)
[2021-01-17 11:13] LABS: BASO % 0.5 % (0-2.0); EOS % 0.1 % (0-4.5); HEMATOCRIT 30.4 % (35.4-49); LYMPH % 3.4 % (8-40); MCH 28.6 pg (25.7-33.7); MCHC 32.7 g/dl (32.0-35.9); MEAN CELL VOLUME 87.4 fl (80-96); MEAN PLT VOLUME 9.6 fl (7.5-11.1); MONO % 7.9 % (3.8-10.2); NEUT % 88.1 % (42.8-82.8); PLATELET COUNT 227 10^3/uL (134-434); RBC 3.48 M/mm3 (4.00-5.60); RDW 12.9 % (11.9-15.9); WHITE BLOOD COUNT 20.3 K/mm3 (4.0-10.0)
[2021-01-17 11:45] LABS: ANISOCYTOSIS 1+; MACROCYTOSIS 0; PLATELET ESTIMATE NORMAL; TEAR DROP CELLS 1+
[2021-01-17] MEDS: QUEtiapine FUMARATE 25 MG TABLET PO SCH ×2 (14:05→22:11)
[2021-01-17] MEDS ORDERED: PT OWN MED DRAWER 7, Y5N ONE (16:27)
[2021-01-17] MEDS: AMPICILLIN NA/SULBACTAM NA 3 GM in SODIUM CHLORIDE 100 ML IVPB SCH ×2 (16:30→17:00)
[2021-01-17] MEDS ORDERED: PIPERACILLIN/TAZOBACTAM 3.375 GM VIAL IVPB ONE (18:14)
[2021-01-17] MEDS ORDERED: DEXTROSE 5%-WATER - 50 ML IVPB ONE (18:15)
[2021-01-17] MEDS: PIPERACILLIN/TAZOB 3.375 GM 3.375 GM in DEXTROSE 5%-WATER - 50 ML IVPB SCH (18:17)
[2021-01-17] MEDS: VANCOMYCIN 1 GRAM (PRE-DOCKED) 1,000 MG/250 ML BAG IVPB SCH (18:45)
[2021-01-17] MEDS ORDERED: ACETAMINOPHEN INJECTION 100 ML IVPB ONE (19:46)
[2021-01-17] MEDS ORDERED: SODIUM CHLORIDE 500 ML IV STA (19:49)
[2021-01-17] MEDS ORDERED: ACETAMINOPHEN 1000 MG/100 ML VIAL (NON FORMULARY) IVPB ONE (19:49)
[2021-01-17] MEDS ORDERED: SODIUM CHLORIDE 500 ML IV ONE (19:54)
[2021-01-17] MEDS ORDERED: INSULIN (LEVEMIR) 100 UNITS/ML UNITS SQ SCH (22:00)
[2021-01-17] MEDS: DONEPEZIL HCL 10 MG TABLET (FP) PO SCH (22:11)
[2021-01-17] MEDS: ATORVASTATIN CA 10 MG TABLET (FP) PO SCH (22:11)
[2021-01-18] MEDS ORDERED: PIPERACILLIN/TAZOBACTAM 3.375 GM VIAL IVPB ONE ×3 (01:11→16:27)
[2021-01-18] MEDS ORDERED: DEXTROSE 5%-WATER - 50 ML IVPB ONE ×3 (01:12→16:27)
[2021-01-18] MEDS: PIPERACILLIN/TAZOB 3.375 GM 3.375 GM in DEXTROSE 5%-WATER - 50 ML IVPB SCH ×3 (01:15→18:16)
[2021-01-18] MEDS: SODIUM CHLORIDE 1,000 ML IV SCH ×2 (01:16→09:11)
[2021-01-18] MEDS: QUEtiapine FUMARATE 25 MG TABLET PO SCH ×3 (06:50→21:11)
[2021-01-18] MEDS: HEPARIN NA (PORCINE) 5,000 UNITS/ML 1ML VIAL SQ SCH ×3 (06:50→21:11)
[2021-01-18] MEDS: LEVOTHYROXINE NA 50 MCG TABLET (FP) PO SCH (06:54)
[2021-01-18] MEDS: INSULIN SLIDING SCALE (NOVOLOG) 1 VIAL SQ SCH ×4 (06:57→21:12)
[2021-01-18 08:33] LABS: BASO % 0.2 % (0-2.0); EOS % 1.1 % (0-4.5); HEMATOCRIT 24.6 % (35.4-49); LYMPH % 11.8 % (8-40); MCH 28.7 pg (25.7-33.7); MCHC 32.4 g/dl (32.0-35.9); MEAN CELL VOLUME 88.4 fl (80-96); MEAN PLT VOLUME 9.1 fl (7.5-11.1); MONO % 9.7 % (3.8-10.2); NEUT % 77.2 % (42.8-82.8); PLATELET COUNT 202 10^3/uL (134-434); RBC 2.78 M/mm3 (4.00-5.60); RDW 13.3 % (11.9-15.9); WHITE BLOOD COUNT 13.1 K/mm3 (4.0-10.0)
[2021-01-18 08:45] LABS: INR 1.31 (0.83-1.09)
[2021-01-18 08:47] LABS: ACTIVATED PTT 28.8 SECONDS (25.2-36.5)
[2021-01-18 08:50] LABS: CHLORIDE 122 mmol/L (98-107)
[2021-01-18 08:52] LABS: ALBUMIN 1.8 g/dl (3.4-5.0); BLOOD UREA NITROGEN 13.6 mg/dL (7-18); CO2 21 mmol/L (21-32)
[2021-01-18 08:55] LABS: CREATININE 0.6 mg/dL (0.55-1.3); SGOT/AST 18 U/L (15-37); SGPT/ALT 29 U/L (13-61)
[2021-01-18 08:57] LABS: BILIRUBIN,TOTAL 0.3 mg/dL (0.2-1); TOT PROT 3.4 g/dl (6.4-8.2)
[2021-01-18 08:58] LABS: ALK PHOS 46 U/L (45-117)
[2021-01-18] MEDS: ASPIRIN 81 MG CHEWABLE TABLETS PO SCH (09:12)
[2021-01-18 09:15] LABS: ANION GAP 6 MMOL/L (8-16); CALCIUM 5.8 mg/dL (8.5-10.1); GLUCOSE,RANDOM 39 mg/dL (74-106); SODIUM 149 mmol/L (136-145)
[2021-01-18] MEDS ORDERED: POTASSIUM CHLORIDE ORAL LIQUID 20 MEQ/15 ML PO ONE (09:37)
[2021-01-18] MEDS ORDERED: CALCIUM GLUC IN NACL, ISO-OSM 1 GM/50 ML BAG IVPB ONE (09:43)
[2021-01-18] MEDS: KCL 10 MEQ IVPB 10 MEQ/100 ML INFUS.BAG IVPB SCH ×3 (09:55→13:00)
[2021-01-18] MEDS: D5-1/2NS+20 MEQ KCL - 20 MEQ/1,000 ML INFUS.BAG IV SCH (09:56)
[2021-01-18] MEDS ORDERED: VANCOMYCIN 1 GRAM (PRE-DOCKED) 1,000 MG/250 ML BAG IVPB SCH ×2 (10:00)
[2021-01-18 10:48] LABS: MAGNESIUM 1.3 mg/dL (1.8-2.4)
[2021-01-18 10:56] LABS: N-TERMINAL BNP 6408.8 pg/ml (5-450)
[2021-01-18] MEDS ORDERED: PT OWN MED DRAWER 7, Y5N ONE (12:57)
[2021-01-18] MEDS ORDERED: MAGNESIUM SULF 50% (8.12 MEQ/2 ML-1 GM VIAL) IVPB ONE (14:00)
[2021-01-18] MEDS: VANCOMYCIN 1 GRAM (PRE-DOCKED) 1,000 MG/250 ML BAG IVPB SCH (18:45)
[2021-01-18 19:26] LABS: CHLORIDE 109 mmol/L (98-107); SODIUM 141 mmol/L (136-145)
[2021-01-18 19:29] LABS: ANION GAP 7 MMOL/L (8-16); BLOOD UREA NITROGEN 16.7 mg/dL (7-18); CO2 25 mmol/L (21-32)
[2021-01-18 19:32] LABS: CREATININE 0.9 mg/dL (0.55-1.3)
[2021-01-18 19:37] LABS: CALCIUM 8.3 mg/dL (8.5-10.1); GLUCOSE,RANDOM 42 mg/dL (74-106)
[2021-01-18] MEDS: ATORVASTATIN CA 10 MG TABLET (FP) PO SCH (21:11)
[2021-01-18] MEDS: DONEPEZIL HCL 10 MG TABLET (FP) PO SCH (21:11)
[2021-01-19] MEDS ORDERED: DEXTROSE 5%-WATER - 50 ML IVPB ONE ×3 (01:18→16:59)
[2021-01-19] MEDS ORDERED: PIPERACILLIN/TAZOBACTAM 3.375 GM VIAL IVPB ONE ×3 (01:18→16:59)
[2021-01-19] MEDS: PIPERACILLIN/TAZOB 3.375 GM 3.375 GM in DEXTROSE 5%-WATER - 50 ML IVPB SCH ×3 (02:07→17:03)
[2021-01-19] MEDS: QUEtiapine FUMARATE 25 MG TABLET PO SCH ×3 (06:10→21:02)
[2021-01-19] MEDS: LEVOTHYROXINE NA 50 MCG TABLET (FP) PO SCH (06:10)
[2021-01-19] MEDS: HEPARIN NA (PORCINE) 5,000 UNITS/ML 1ML VIAL SQ SCH ×3 (06:10→21:02)
[2021-01-19] MEDS: INSULIN SLIDING SCALE (NOVOLOG) 1 VIAL SQ SCH ×5 (06:10→21:02)
[2021-01-19] MEDS: ACETAMINOPHEN 325 MG TABLET (FP) PO PRN (09:46)
[2021-01-19] MEDS: D5-1/2NS+20 MEQ KCL - 20 MEQ/1,000 ML INFUS.BAG IV SCH ×2 (09:47→16:16)
[2021-01-19] MEDS: ASPIRIN 81 MG CHEWABLE TABLETS PO SCH (09:47)
[2021-01-19 11:45] LABS: BASO % 0.4 % (0-2.0); EOS % 1.9 % (0-4.5); HEMATOCRIT 29.6 % (35.4-49); HEMOGLOBIN 9.7 GM/dL (11.7-16.9); MCH 28.9 pg (25.7-33.7); MCHC 32.6 g/dl (32.0-35.9); MEAN CELL VOLUME 88.8 fl (80-96); MEAN PLT VOLUME 9.3 fl (7.5-11.1); MONO % 8.2 % (3.8-10.2); NEUT % 80.5 % (42.8-82.8); PLATELET COUNT 252 10^3/uL (134-434); RBC 3.34 M/mm3 (4.00-5.60); RDW 13.4 % (11.9-15.9)
[2021-01-19 12:20] LABS: BLOOD UREA NITROGEN 11.9 mg/dL (7-18); CALCIUM 7.8 mg/dL (8.5-10.1)
[2021-01-19 12:23] LABS: CREATININE 0.9 mg/dL (0.55-1.3)
[2021-01-19 12:25] LABS: BILIRUBIN,TOTAL 0.4 mg/dL (0.2-1); TOT PROT 4.8 g/dl (6.4-8.2)
[2021-01-19 12:28] LABS: ALBUMIN 2.4 g/dl (3.4-5.0)
[2021-01-19] MEDS: VANCOMYCIN 1 GRAM (PRE-DOCKED) 1,000 MG/250 ML BAG IVPB SCH (18:33)
[2021-01-19] MEDS: ATORVASTATIN CA 10 MG TABLET (FP) PO SCH (21:02)
[2021-01-19] MEDS: DONEPEZIL HCL 10 MG TABLET (FP) PO SCH (21:02)
[2021-01-20] MEDS ORDERED: PIPERACILLIN/TAZOBACTAM 3.375 GM VIAL IVPB ONE ×3 (01:10→16:32)
[2021-01-20] MEDS ORDERED: DEXTROSE 5%-WATER - 50 ML IVPB ONE ×3 (01:10→16:32)
[2021-01-20] MEDS: PIPERACILLIN/TAZOB 3.375 GM 3.375 GM in DEXTROSE 5%-WATER - 50 ML IVPB SCH ×3 (01:31→17:30)
[2021-01-20] MEDS: INSULIN SLIDING SCALE (NOVOLOG) 1 VIAL SQ SCH ×4 (06:01→21:06)
[2021-01-20] MEDS: LEVOTHYROXINE NA 50 MCG TABLET (FP) PO SCH (06:01)
[2021-01-20] MEDS: HEPARIN NA (PORCINE) 5,000 UNITS/ML 1ML VIAL SQ SCH ×3 (06:01→22:21)
[2021-01-20] MEDS: D5-1/2NS+20 MEQ KCL - 20 MEQ/1,000 ML INFUS.BAG IV SCH (06:01)
[2021-01-20] MEDS: QUEtiapine FUMARATE 25 MG TABLET PO SCH ×3 (06:01→21:06)
[2021-01-20] MEDS: ASPIRIN 81 MG CHEWABLE TABLETS PO SCH (09:53)
[2021-01-20 11:58] LABS: BASO % 0.4 % (0-2.0); EOS % 3.6 % (0-4.5); HEMATOCRIT 34.3 % (35.4-49); MCH 28.7 pg (25.7-33.7); MCHC 32.1 g/dl (32.0-35.9); MEAN CELL VOLUME 89.3 fl (80-96); MEAN PLT VOLUME 9.3 fl (7.5-11.1); MONO % 8.7 % (3.8-10.2); NEUT % 75.3 % (42.8-82.8); PLATELET COUNT 316 10^3/uL (134-434); RBC 3.84 M/mm3 (4.00-5.60); RDW 13.3 % (11.9-15.9); WHITE BLOOD COUNT 12.9 K/mm3 (4.0-10.0)
[2021-01-20 12:25] LABS: ALBUMIN 2.4 g/dl (3.4-5.0); CALCIUM 8.1 mg/dL (8.5-10.1)
[2021-01-20 12:26] LABS: BLOOD UREA NITROGEN 13.3 mg/dL (7-18)
[2021-01-20 12:28] LABS: CREATININE 0.9 mg/dL (0.55-1.3)
[2021-01-20 12:30] LABS: BILIRUBIN,TOTAL 0.5 mg/dL (0.2-1)
[2021-01-20 12:31] LABS: TOT PROT 5.2 g/dl (6.4-8.2)
[2021-01-20 12:33] LABS: ANISOCYTOSIS 0; MACROCYTOSIS 0; PLATELET ESTIMATE NORMAL
[2021-01-20] MEDS: VANCOMYCIN 1 GRAM (PRE-DOCKED) 1,000 MG/250 ML BAG IVPB SCH (17:30)
[2021-01-20] MEDS: DONEPEZIL HCL 10 MG TABLET (FP) PO SCH (21:06)
[2021-01-20] MEDS: ATORVASTATIN CA 10 MG TABLET (FP) PO SCH (21:06)
[2021-01-21] MEDS ORDERED: MELATONIN 1 MG TABLET PO SCH ×3 (00:53→22:00)
[2021-01-21] MEDS ORDERED: MELATONIN 1 MG TABLET PO ONE (01:04)
[2021-01-21] MEDS ORDERED: PIPERACILLIN/TAZOBACTAM 3.375 GM VIAL IVPB ONE ×3 (01:32→17:14)
[2021-01-21] MEDS ORDERED: DEXTROSE 5%-WATER - 50 ML IVPB ONE ×3 (01:32→17:14)
[2021-01-21] MEDS: MELATONIN 1 MG TABLET PO SCH ×2 (01:50→21:55)
[2021-01-21] MEDS: D5-1/2NS+20 MEQ KCL - 20 MEQ/1,000 ML INFUS.BAG IV SCH ×2 (02:32→21:56)
[2021-01-21] MEDS: PIPERACILLIN/TAZOB 3.375 GM 3.375 GM in DEXTROSE 5%-WATER - 50 ML IVPB SCH ×3 (02:32→17:10)
[2021-01-21] MEDS ORDERED: INSULIN (NOVOLOG) ASPART 100 UNITS/ML 10ML VIAL ONE (06:36)
[2021-01-21] MEDS: QUEtiapine FUMARATE 25 MG TABLET PO SCH ×3 (06:40→21:55)
[2021-01-21] MEDS: LEVOTHYROXINE NA 50 MCG TABLET (FP) PO SCH (06:41)
[2021-01-21] MEDS: HEPARIN NA (PORCINE) 5,000 UNITS/ML 1ML VIAL SQ SCH ×3 (06:41→21:56)
[2021-01-21] MEDS: INSULIN SLIDING SCALE (NOVOLOG) 1 VIAL SQ SCH ×4 (06:41→22:05)
[2021-01-21 09:09] LABS: BASO % 0.8 % (0-2.0); EOS % 2.6 % (0-4.5); HEMATOCRIT 30.3 % (35.4-49); HEMOGLOBIN 10.1 GM/dL (11.7-16.9); LYMPH % 12.6 % (8-40); MCH 28.8 pg (25.7-33.7); MCHC 33.1 g/dl (32.0-35.9); MEAN PLT VOLUME 8.8 fl (7.5-11.1); PLATELET COUNT 330 10^3/uL (134-434); RBC 3.49 M/mm3 (4.00-5.60); RDW 13.1 % (11.9-15.9); WHITE BLOOD COUNT 12.5 K/mm3 (4.0-10.0)
[2021-01-21 09:22] LABS: CALCIUM 8.2 mg/dL (8.5-10.1)
[2021-01-21 09:23] LABS: ALBUMIN 2.3 g/dl (3.4-5.0); BLOOD UREA NITROGEN 11.4 mg/dL (7-18)
[2021-01-21 09:26] LABS: CREATININE 0.8 mg/dL (0.55-1.3)
[2021-01-21 09:28] LABS: BILIRUBIN,TOTAL 0.4 mg/dL (0.2-1); TOT PROT 4.9 g/dl (6.4-8.2)
[2021-01-21 10:33] LABS: ANISOCYTOSIS 0; MACROCYTOSIS 0; PLATELET ESTIMATE NORMAL
[2021-01-21] MEDS: ASPIRIN 81 MG CHEWABLE TABLETS PO SCH (10:39)
[2021-01-21] MEDS: ACETAMINOPHEN 325 MG TABLET (FP) PO PRN (18:16)
[2021-01-21] MEDS: ATORVASTATIN CA 10 MG TABLET (FP) PO SCH (21:55)
[2021-01-21] MEDS: DONEPEZIL HCL 10 MG TABLET (FP) PO SCH (21:55)
[2021-01-22] MEDS ORDERED: DEXTROSE 5%-WATER - 50 ML IVPB ONE ×3 (02:09→17:27)
[2021-01-22] MEDS ORDERED: PIPERACILLIN/TAZOBACTAM 3.375 GM VIAL IVPB ONE ×3 (02:09→17:27)
[2021-01-22] MEDS: PIPERACILLIN/TAZOB 3.375 GM 3.375 GM in DEXTROSE 5%-WATER - 50 ML IVPB SCH ×3 (02:18→17:29)
[2021-01-22] MEDS: HEPARIN NA (PORCINE) 5,000 UNITS/ML 1ML VIAL SQ SCH ×3 (06:37→21:56)
[2021-01-22] MEDS: INSULIN SLIDING SCALE (NOVOLOG) 1 VIAL SQ SCH ×4 (06:37→21:58)
[2021-01-22] MEDS: LEVOTHYROXINE NA 50 MCG TABLET (FP) PO SCH (06:38)
[2021-01-22] MEDS: QUEtiapine FUMARATE 25 MG TABLET PO SCH ×3 (06:38→21:58)
[2021-01-22] MEDS: ACETAMINOPHEN 325 MG TABLET (FP) PO PRN (09:19)
[2021-01-22] MEDS: ASPIRIN 81 MG CHEWABLE TABLETS PO SCH (09:20)
[2021-01-22] MEDS: D5-1/2NS+20 MEQ KCL - 20 MEQ/1,000 ML INFUS.BAG IV SCH ×2 (11:29→16:14)
[2021-01-22] MEDS ORDERED: INSULIN (NOVOLOG) ASPART 100 UNITS/ML 10ML VIAL ONE (11:31)
[2021-01-22] MEDS: DONEPEZIL HCL 10 MG TABLET (FP) PO SCH (21:58)
[2021-01-22] MEDS: ATORVASTATIN CA 10 MG TABLET (FP) PO SCH (21:58)
[2021-01-22] MEDS: MELATONIN 1 MG TABLET PO SCH (21:58)
[2021-01-23] MEDS ORDERED: PIPERACILLIN/TAZOBACTAM 3.375 GM VIAL IVPB ONE ×4 (01:19→17:22)
[2021-01-23] MEDS ORDERED: DEXTROSE 5%-WATER - 50 ML IVPB ONE ×3 (01:20→17:22)
[2021-01-23] MEDS: D5-1/2NS+20 MEQ KCL - 20 MEQ/1,000 ML INFUS.BAG IV SCH ×3 (01:23→12:10)
[2021-01-23] MEDS: PIPERACILLIN/TAZOB 3.375 GM 3.375 GM in DEXTROSE 5%-WATER - 50 ML IVPB SCH ×3 (01:24→17:28)
[2021-01-23] MEDS: HEPARIN NA (PORCINE) 5,000 UNITS/ML 1ML VIAL SQ SCH ×3 (06:05→21:08)
[2021-01-23] MEDS: QUEtiapine FUMARATE 25 MG TABLET PO SCH ×3 (06:06→21:07)
[2021-01-23] MEDS: LEVOTHYROXINE NA 50 MCG TABLET (FP) PO SCH (06:06)
[2021-01-23] MEDS: INSULIN SLIDING SCALE (NOVOLOG) 1 VIAL SQ SCH ×4 (06:09→21:11)
[2021-01-23 08:23] LABS: BASO % 0.5 % (0-2.0); EOS % 2.8 % (0-4.5); HEMATOCRIT 29.5 % (35.4-49); HEMOGLOBIN 9.7 GM/dL (11.7-16.9); LYMPH % 14.1 % (8-40); MCH 28.9 pg (25.7-33.7); MCHC 32.8 g/dl (32.0-35.9); MEAN CELL VOLUME 88.1 fl (80-96); MEAN PLT VOLUME 8.4 fl (7.5-11.1); MONO % 8.6 % (3.8-10.2); PLATELET COUNT 403 10^3/uL (134-434); RBC 3.35 M/mm3 (4.00-5.60); RDW 13.1 % (11.9-15.9); WHITE BLOOD COUNT 15.9 K/mm3 (4.0-10.0)
[2021-01-23 08:57] LABS: ALBUMIN 2.4 g/dl (3.4-5.0); CALCIUM 7.9 mg/dL (8.5-10.1)
[2021-01-23 08:58] LABS: BLOOD UREA NITROGEN 7.6 mg/dL (7-18)
[2021-01-23 09:01] LABS: CREATININE 0.9 mg/dL (0.55-1.3)
[2021-01-23 09:02] LABS: BILIRUBIN,TOTAL 0.3 mg/dL (0.2-1)
[2021-01-23] MEDS: ASPIRIN 81 MG CHEWABLE TABLETS PO SCH (09:49)
[2021-01-23 10:57] LABS: ANISOCYTOSIS 1+; MACROCYTOSIS 0; PLATELET ESTIMATE NORMAL
[2021-01-23] MEDS: metFORMIN HCL 500 MG TABLET (FP) PO SCH ×2 (11:15→17:28)
[2021-01-23] MEDS: MELATONIN 1 MG TABLET PO SCH (21:07)
[2021-01-23] MEDS: DONEPEZIL HCL 10 MG TABLET (FP) PO SCH (21:08)
[2021-01-23] MEDS: ATORVASTATIN CA 10 MG TABLET (FP) PO SCH (21:08)
[2021-01-24] MEDS ORDERED: DEXTROSE 5%-WATER - 50 ML IVPB ONE ×2 (02:51→10:25)
[2021-01-24] MEDS ORDERED: PIPERACILLIN/TAZOBACTAM 3.375 GM VIAL IVPB ONE ×2 (02:51→10:25)
[2021-01-24] MEDS: PIPERACILLIN/TAZOB 3.375 GM 3.375 GM in DEXTROSE 5%-WATER - 50 ML IVPB SCH ×2 (03:14→10:55)
[2021-01-24] MEDS: metFORMIN HCL 500 MG TABLET (FP) PO SCH ×2 (06:14→17:25)
[2021-01-24] MEDS: LEVOTHYROXINE NA 50 MCG TABLET (FP) PO SCH (06:14)
[2021-01-24] MEDS: INSULIN SLIDING SCALE (NOVOLOG) 1 VIAL SQ SCH ×4 (06:14→21:04)
[2021-01-24] MEDS: QUEtiapine FUMARATE 25 MG TABLET PO SCH ×3 (06:15→21:03)
[2021-01-24 08:42] LABS: BASO % 0.4 % (0-2.0); EOS % 2.4 % (0-4.5); HEMATOCRIT 32.2 % (35.4-49); HEMOGLOBIN 10.6 GM/dL (11.7-16.9); LYMPH % 10.3 % (8-40); MCH 29.1 pg (25.7-33.7); MEAN PLT VOLUME 8.1 fl (7.5-11.1); MONO % 8.8 % (3.8-10.2); NEUT % 78.1 % (42.8-82.8); PLATELET COUNT 460 10^3/uL (134-434); RBC 3.65 M/mm3 (4.00-5.60); RDW 13.2 % (11.9-15.9); WHITE BLOOD COUNT 18.4 K/mm3 (4.0-10.0)
[2021-01-24 10:25] LABS: ANISOCYTOSIS 0; HELMET CELLS 0; HOWELL-JOLLY BODIES 0; MACROCYTOSIS 0; OVALOCYTE 0; PLATELET ESTIMATE NORMAL; ROULEAU 0; SICKELED CELLS 0; TARGET CELLS 0; TEAR DROP CELLS 0; TOXIC GRANULATION 0
[2021-01-24] MEDS: D5-1/2NS+20 MEQ KCL - 20 MEQ/1,000 ML INFUS.BAG IV SCH (10:55)
[2021-01-24] MEDS: ASPIRIN 81 MG CHEWABLE TABLETS PO SCH (10:58)
[2021-01-24] MEDS: AMOX TR/POT CLAV 875MG/125MG TABLETS (FP) PO SCH ×2 (13:24→17:25)
[2021-01-24] MEDS: LISINOPRIL 10 MG TABLET PO SCH (13:24)
[2021-01-24] MEDS: ATORVASTATIN CA 10 MG TABLET (FP) PO SCH (21:03)
[2021-01-24] MEDS: DONEPEZIL HCL 10 MG TABLET (FP) PO SCH (21:03)
[2021-01-24] MEDS: MELATONIN 1 MG TABLET PO SCH (21:03)
[2021-01-25] MEDS: metFORMIN HCL 500 MG TABLET (FP) PO SCH ×2 (06:25→17:06)
[2021-01-25] MEDS: LEVOTHYROXINE NA 50 MCG TABLET (FP) PO SCH (06:25)
[2021-01-25] MEDS: INSULIN SLIDING SCALE (NOVOLOG) 1 VIAL SQ SCH ×4 (06:25→21:39)
[2021-01-25] MEDS: QUEtiapine FUMARATE 25 MG TABLET PO SCH ×3 (06:25→21:40)
[2021-01-25 08:53] LABS: BASO % 0.4 % (0-2.0); EOS % 1.9 % (0-4.5); HEMOGLOBIN 10.5 GM/dL (11.7-16.9); LYMPH % 7.7 % (8-40); MCH 29.5 pg (25.7-33.7); MCHC 33.7 g/dl (32.0-35.9); MEAN CELL VOLUME 87.5 fl (80-96); MEAN PLT VOLUME 8.1 fl (7.5-11.1); MONO % 7.8 % (3.8-10.2); NEUT % 82.2 % (42.8-82.8); PLATELET COUNT 480 10^3/uL (134-434); RBC 3.55 M/mm3 (4.00-5.60); RDW 13.2 % (11.9-15.9); WHITE BLOOD COUNT 21.5 K/mm3 (4.0-10.0)
[2021-01-25] MEDS: AMOX TR/POT CLAV 875MG/125MG TABLETS (FP) PO SCH ×2 (10:33→17:06)
[2021-01-25] MEDS: ASPIRIN 81 MG CHEWABLE TABLETS PO SCH (10:33)
[2021-01-25] MEDS: LISINOPRIL 10 MG TABLET PO SCH (10:33)
[2021-01-25 11:13] LABS: ANISOCYTOSIS 0; MACROCYTOSIS 0; PLATELET ESTIMATE INCREASED
[2021-01-25 17:50] LABS: URINE APPEARANCE CLEAR; URINE BILIRUBIN NEGATIVE (NEGATIVE); URINE COLOR YELLOW; URINE GLUCOSE (UA) NEGATIVE (NEGATIVE); URINE KETONE 2+ (NEGATIVE); URINE LEUK ESTERASE NEGATIVE (NEGATIVE); URINE NITRITE NEGATIVE (NEGATIVE); URINE PROTEIN NEGATIVE (NEGATIVE)
[2021-01-25] MEDS ORDERED: INSULIN (NOVOLOG) ASPART 100 UNITS/ML 10ML VIAL ONE (21:13)
[2021-01-25] MEDS ORDERED: PT OWN MED DRAWER 7, Y5N ONE (21:14)
[2021-01-25] MEDS: ATORVASTATIN CA 10 MG TABLET (FP) PO SCH (21:34)
[2021-01-25] MEDS: DONEPEZIL HCL 10 MG TABLET (FP) PO SCH (21:34)
[2021-01-25] MEDS: MELATONIN 1 MG TABLET PO SCH (21:40)
[2021-01-26] MEDS: metFORMIN HCL 500 MG TABLET (FP) PO SCH ×2 (06:08→17:14)
[2021-01-26] MEDS: LEVOTHYROXINE NA 50 MCG TABLET (FP) PO SCH (06:08)
[2021-01-26] MEDS: QUEtiapine FUMARATE 25 MG TABLET PO SCH ×3 (06:08→22:40)
[2021-01-26] MEDS: INSULIN SLIDING SCALE (NOVOLOG) 1 VIAL SQ SCH ×4 (06:14→22:46)
[2021-01-26 09:24] LABS: HEMATOCRIT 33.4 % (35.4-49); MCH 29.2 pg (25.7-33.7); MEAN CELL VOLUME 88.5 fl (80-96); MEAN PLT VOLUME 8.4 fl (7.5-11.1); PLATELET COUNT 480 10^3/uL (134-434); RBC 3.77 M/mm3 (4.00-5.60); RDW 13.6 % (11.9-15.9); WHITE BLOOD COUNT 21.4 K/mm3 (4.0-10.0)
[2021-01-26] MEDS: ACETAMINOPHEN 325 MG TABLET (FP) PO PRN (09:37)
[2021-01-26] MEDS: LISINOPRIL 10 MG TABLET PO SCH (09:37)
[2021-01-26] MEDS: ASPIRIN 81 MG CHEWABLE TABLETS PO SCH (09:37)
[2021-01-26] MEDS: AMOX TR/POT CLAV 875MG/125MG TABLETS (FP) PO SCH ×2 (09:38→17:14)
[2021-01-26] MEDS: LACTOBACILLUS ACIDOPHILUS 1 TABLET PO SCH (17:47)
[2021-01-26] MEDS: DONEPEZIL HCL 10 MG TABLET (FP) PO SCH (22:40)
[2021-01-26] MEDS: CLINDAMYCIN HCL 150 MG CAPSULE (FP) PO SCH (22:40)
[2021-01-26] MEDS: ATORVASTATIN CA 10 MG TABLET (FP) PO SCH (22:40)
[2021-01-26] MEDS: MELATONIN 1 MG TABLET PO SCH (22:40)
[2021-01-26 23:44] VITALS: BMI 21.4
[2021-01-27] MEDS: CLINDAMYCIN HCL 150 MG CAPSULE (FP) PO SCH ×3 (07:09→21:33)
[2021-01-27] MEDS: metFORMIN HCL 500 MG TABLET (FP) PO SCH ×3 (07:09→18:20)
[2021-01-27] MEDS: INSULIN SLIDING SCALE (NOVOLOG) 1 VIAL SQ SCH ×4 (07:09→21:39)
[2021-01-27] MEDS: QUEtiapine FUMARATE 25 MG TABLET PO SCH ×3 (07:09→21:33)
[2021-01-27] MEDS: LEVOTHYROXINE NA 50 MCG TABLET (FP) PO SCH (07:09)
[2021-01-27] MEDS: AMINO ACIDS/PROTEIN HYDROLYS 30 ML LIQUID.PKT PO SCH ×2 (10:47→18:14)
[2021-01-27] MEDS: LACTOBACILLUS ACIDOPHILUS 1 TABLET PO SCH (10:47)
[2021-01-27] MEDS: ASPIRIN 81 MG CHEWABLE TABLETS PO SCH (10:48)
[2021-01-27] MEDS: LISINOPRIL 10 MG TABLET PO SCH (10:48)
[2021-01-27 11:03] LABS: BASO % 0.3 % (0-2.0); EOS % 1.6 % (0-4.5); HEMATOCRIT 32.9 % (35.4-49); HEMOGLOBIN 10.7 GM/dL (11.7-16.9); LYMPH % 5.9 % (8-40); MCH 28.7 pg (25.7-33.7); MCHC 32.6 g/dl (32.0-35.9); MEAN CELL VOLUME 88.2 fl (80-96); MEAN PLT VOLUME 8.2 fl (7.5-11.1); MONO % 7.2 % (3.8-10.2); PLATELET COUNT 501 10^3/uL (134-434); RBC 3.73 M/mm3 (4.00-5.60); RDW 13.8 % (11.9-15.9); WHITE BLOOD COUNT 23.2 K/mm3 (4.0-10.0)
[2021-01-27 11:44] LABS: CALCIUM 8.6 mg/dL (8.5-10.1)
[2021-01-27 11:48] LABS: CREATININE 1.3 mg/dL (0.55-1.3)
[2021-01-27 11:49] LABS: ANISOCYTOSIS 0; BILIRUBIN,TOTAL 0.4 mg/dL (0.2-1); HELMET CELLS 0; HOWELL-JOLLY BODIES 0; MACROCYTOSIS 0; OVALOCYTE 0; PLATELET ESTIMATE INCREASED; ROULEAU 0; SICKELED CELLS 0; TARGET CELLS 0; TEAR DROP CELLS 0; TOT PROT 5.8 g/dl (6.4-8.2); TOXIC GRANULATION 0
[2021-01-27 11:54] LABS: ALBUMIN 2.9 g/dl (3.4-5.0); BLOOD UREA NITROGEN 34.2 mg/dL (7-18)
[2021-01-27] MEDS: CHLORHEXIDINE GLUCONATE 0.12% 15ML CUP MM SCH ×2 (18:13→21:33)
[2021-01-27] MEDS ORDERED: PT OWN MED DRAWER 7, Y5N ONE ×2 (19:36→21:31)
[2021-01-27] MEDS: MIRTAZAPINE 15 MG TABLET (FP) PO SCH (21:33)
[2021-01-27] MEDS: DONEPEZIL HCL 10 MG TABLET (FP) PO SCH (21:33)
[2021-01-27] MEDS: ATORVASTATIN CA 10 MG TABLET (FP) PO SCH (21:33)
[2021-01-27] MEDS: MELATONIN 1 MG TABLET PO SCH (21:33)
[2021-01-28] MEDS: metFORMIN HCL 500 MG TABLET (FP) PO SCH ×2 (07:08→17:08)
[2021-01-28] MEDS: CLINDAMYCIN HCL 150 MG CAPSULE (FP) PO SCH (07:08)
[2021-01-28] MEDS: QUEtiapine FUMARATE 25 MG TABLET PO SCH ×3 (07:09→21:37)
[2021-01-28] MEDS: INSULIN SLIDING SCALE (NOVOLOG) 1 VIAL SQ SCH ×4 (07:09→21:38)
[2021-01-28] MEDS: LEVOTHYROXINE NA 50 MCG TABLET (FP) PO SCH (07:09)
[2021-01-28 09:31] LABS: BASO % 0.4 % (0-2.0); EOS % 3.6 % (0-4.5); HEMOGLOBIN 10.8 GM/dL (11.7-16.9); LYMPH % 8.7 % (8-40); MCH 29.9 pg (25.7-33.7); MCHC 33.7 g/dl (32.0-35.9); MEAN CELL VOLUME 88.7 fl (80-96); MEAN PLT VOLUME 8.4 fl (7.5-11.1); MONO % 6.4 % (3.8-10.2); NEUT % 80.9 % (42.8-82.8); PLATELET COUNT 479 10^3/uL (134-434); RBC 3.61 M/mm3 (4.00-5.60); RDW 13.6 % (11.9-15.9); WHITE BLOOD COUNT 19.2 K/mm3 (4.0-10.0)
[2021-01-28] MEDS ORDERED: PT OWN MED DRAWER 7, Y5N ONE ×4 (09:33→22:05)
[2021-01-28] MEDS: ACETAMINOPHEN 325 MG TABLET (FP) PO PRN (09:34)
[2021-01-28] MEDS: LACTOBACILLUS ACIDOPHILUS 1 TABLET PO SCH (09:34)
[2021-01-28] MEDS: LISINOPRIL 10 MG TABLET PO SCH (09:34)
[2021-01-28] MEDS: AMINO ACIDS/PROTEIN HYDROLYS 30 ML LIQUID.PKT PO SCH ×2 (09:35→17:11)
[2021-01-28] MEDS: ASPIRIN 81 MG CHEWABLE TABLETS PO SCH (09:35)
[2021-01-28] MEDS: CHLORHEXIDINE GLUCONATE 0.12% 15ML CUP MM SCH ×2 (09:35→21:38)
[2021-01-28 10:02] LABS: CALCIUM 8.3 mg/dL (8.5-10.1)
[2021-01-28 10:03] LABS: ALBUMIN 2.8 g/dl (3.4-5.0); BLOOD UREA NITROGEN 36.7 mg/dL (7-18)
[2021-01-28 10:06] LABS: CREATININE 1.2 mg/dL (0.55-1.3)
[2021-01-28 10:07] LABS: BILIRUBIN,TOTAL 0.5 mg/dL (0.2-1); TOT PROT 5.6 g/dl (6.4-8.2)
[2021-01-28 10:25] LABS: ANISOCYTOSIS 0; HELMET CELLS 0; HOWELL-JOLLY BODIES 0; MACROCYTOSIS 0; OVALOCYTE 0; PLATELET ESTIMATE NORMAL; ROULEAU 0; SICKELED CELLS 0; TARGET CELLS 0; TEAR DROP CELLS 0; TOXIC GRANULATION 0
[2021-01-28] MEDS ORDERED: DEXTROSE 5%-WATER - 50 ML IVPB ONE (10:55)
[2021-01-28] MEDS ORDERED: PIPERACILLIN/TAZOBACTAM 3.375 GM VIAL IVPB ONE (10:55)
[2021-01-28] MEDS: PIPERACILLIN/TAZOB 3.375 GM 3.375 GM in DEXTROSE 5%-WATER - 50 ML IVPB SCH ×2 (10:57→17:11)
[2021-01-28] MEDS: VANCOMYCIN 1 GRAM (PRE-DOCKED) 1,000 MG/250 ML BAG IVPB SCH (11:34)
[2021-01-28] MEDS: DONEPEZIL HCL 10 MG TABLET (FP) PO SCH (21:37)
[2021-01-28] MEDS: MELATONIN 1 MG TABLET PO SCH (21:37)
[2021-01-28] MEDS: MIRTAZAPINE 15 MG TABLET (FP) PO SCH (21:37)
[2021-01-28] MEDS: ATORVASTATIN CA 10 MG TABLET (FP) PO SCH (21:38)
[2021-01-29] MEDS ORDERED: DEXTROSE 5%-WATER - 50 ML IVPB ONE ×3 (01:12→17:52)
[2021-01-29] MEDS ORDERED: PIPERACILLIN/TAZOBACTAM 3.375 GM VIAL IVPB ONE ×3 (01:12→17:52)
[2021-01-29] MEDS: PIPERACILLIN/TAZOB 3.375 GM 3.375 GM in DEXTROSE 5%-WATER - 50 ML IVPB SCH ×3 (01:38→17:55)
[2021-01-29] MEDS: ACETAMINOPHEN 325 MG TABLET (FP) PO PRN (01:38)
[2021-01-29] MEDS: QUEtiapine FUMARATE 25 MG TABLET PO SCH ×3 (06:07→21:57)
[2021-01-29] MEDS: LEVOTHYROXINE NA 50 MCG TABLET (FP) PO SCH (06:07)
[2021-01-29] MEDS: metFORMIN HCL 500 MG TABLET (FP) PO SCH ×2 (06:07→16:41)
[2021-01-29] MEDS: INSULIN SLIDING SCALE (NOVOLOG) 1 VIAL SQ SCH ×4 (06:11→21:58)
[2021-01-29 09:32] LABS: BASO % 0.5 % (0-2.0); EOS % 4.2 % (0-4.5); HEMATOCRIT 32.1 % (35.4-49); HEMOGLOBIN 10.7 GM/dL (11.7-16.9); LYMPH % 8.7 % (8-40); MCH 29.1 pg (25.7-33.7); MCHC 33.4 g/dl (32.0-35.9); MEAN CELL VOLUME 87.3 fl (80-96); MEAN PLT VOLUME 8.1 fl (7.5-11.1); MONO % 5.7 % (3.8-10.2); NEUT % 80.9 % (42.8-82.8); PLATELET COUNT 524 10^3/uL (134-434); RBC 3.67 M/mm3 (4.00-5.60); RDW 13.7 % (11.9-15.9); WHITE BLOOD COUNT 18.7 K/mm3 (4.0-10.0)
[2021-01-29 09:48] LABS: BLOOD UREA NITROGEN 52.5 mg/dL (7-18)
[2021-01-29 09:49] LABS: CALCIUM 8.4 mg/dL (8.5-10.1)
[2021-01-29 09:50] LABS: ALBUMIN 2.9 g/dl (3.4-5.0)
[2021-01-29 09:53] LABS: CREATININE 1.7 mg/dL (0.55-1.3)
[2021-01-29 09:55] LABS: BILIRUBIN,TOTAL 0.5 mg/dL (0.2-1); TOT PROT 5.8 g/dl (6.4-8.2)
[2021-01-29] MEDS: AMINO ACIDS/PROTEIN HYDROLYS 30 ML LIQUID.PKT PO SCH ×2 (09:59→16:41)
[2021-01-29] MEDS: LACTOBACILLUS ACIDOPHILUS 1 TABLET PO SCH (09:59)
[2021-01-29] MEDS: LISINOPRIL 10 MG TABLET PO SCH (09:59)
[2021-01-29] MEDS: POLYETHYLENE GLYCOL (HEALTHYLAX) 3350 17 GM PACKET PO PRN (09:59)
[2021-01-29] MEDS: ASPIRIN 81 MG CHEWABLE TABLETS PO SCH (09:59)
[2021-01-29] MEDS: MULTIVITAMINS THER W-MINERALS COMBO TABLET (FP) PO SCH (09:59)
[2021-01-29] MEDS: VANCOMYCIN 1 GRAM (PRE-DOCKED) 1,000 MG/250 ML BAG IVPB SCH (10:35)
[2021-01-29] MEDS ORDERED: PT OWN MED DRAWER 7, Y5N ONE ×2 (10:42→21:50)
[2021-01-29] MEDS: CHLORHEXIDINE GLUCONATE 0.12% 15ML CUP MM SCH ×2 (10:43→21:58)
[2021-01-29 11:39] LABS: ANISOCYTOSIS 0; HELMET CELLS 0; HOWELL-JOLLY BODIES 0; MACROCYTOSIS 0; OVALOCYTE 0; PLATELET ESTIMATE INCREASED; ROULEAU 0; SICKELED CELLS 0; TARGET CELLS 0; TEAR DROP CELLS 0; TOXIC GRANULATION 0
[2021-01-29] MEDS: DEXTROSE 5%-0.45% SALINE 1,000 ML IV SCH (16:06)
[2021-01-29] MEDS: MEGESTROL ACETATE 400 MG/10 ML UNIT DOSE CUP PO SCH (19:50)
[2021-01-29] MEDS: ATORVASTATIN CA 10 MG TABLET (FP) PO SCH (21:57)
[2021-01-29] MEDS: DOCUSATE SODIUM 100 MG CAPSULE (FP) PO SCH (21:57)
[2021-01-29] MEDS: DONEPEZIL HCL 10 MG TABLET (FP) PO SCH (21:57)
[2021-01-29] MEDS: MELATONIN 1 MG TABLET PO SCH (21:57)
[2021-01-29] MEDS: MIRTAZAPINE 15 MG TABLET (FP) PO SCH (21:57)
[2021-01-30] MEDS ORDERED: PIPERACILLIN/TAZOBACTAM 3.375 GM VIAL IVPB ONE ×3 (01:20→18:10)
[2021-01-30] MEDS ORDERED: DEXTROSE 5%-WATER - 50 ML IVPB ONE ×3 (01:20→18:10)
[2021-01-30] MEDS: PIPERACILLIN/TAZOB 3.375 GM 3.375 GM in DEXTROSE 5%-WATER - 50 ML IVPB SCH ×3 (01:30→18:15)
[2021-01-30] MEDS: QUEtiapine FUMARATE 25 MG TABLET PO SCH ×3 (06:18→22:45)
[2021-01-30] MEDS: LEVOTHYROXINE NA 50 MCG TABLET (FP) PO SCH (06:18)
[2021-01-30] MEDS: metFORMIN HCL 500 MG TABLET (FP) PO SCH ×2 (06:18→16:58)
[2021-01-30] MEDS: INSULIN SLIDING SCALE (NOVOLOG) 1 VIAL SQ SCH ×4 (06:20→22:50)
[2021-01-30 08:43] LABS: BASO % 0.9 % (0-2.0); EOS % 5.3 % (0-4.5); HEMATOCRIT 29.6 % (35.4-49); HEMOGLOBIN 9.8 GM/dL (11.7-16.9); LYMPH % 11.3 % (8-40); MCH 29.1 pg (25.7-33.7); MCHC 33.2 g/dl (32.0-35.9); MEAN CELL VOLUME 87.6 fl (80-96); MEAN PLT VOLUME 8.2 fl (7.5-11.1); MONO % 5.4 % (3.8-10.2); NEUT % 77.1 % (42.8-82.8); PLATELET COUNT 431 10^3/uL (134-434); RBC 3.38 M/mm3 (4.00-5.60); RDW 13.8 % (11.9-15.9); WHITE BLOOD COUNT 13.3 K/mm3 (4.0-10.0)
[2021-01-30 09:06] LABS: ALBUMIN 2.6 g/dl (3.4-5.0); BLOOD UREA NITROGEN 48.2 mg/dL (7-18); CALCIUM 8.1 mg/dL (8.5-10.1)
[2021-01-30 09:09] LABS: CREATININE 1.6 mg/dL (0.55-1.3)
[2021-01-30 09:11] LABS: BILIRUBIN,TOTAL 0.4 mg/dL (0.2-1); TOT PROT 5.2 g/dl (6.4-8.2)
[2021-01-30] MEDS: LISINOPRIL 10 MG TABLET PO SCH (09:25)
[2021-01-30] MEDS: LACTOBACILLUS ACIDOPHILUS 1 TABLET PO SCH (09:33)
[2021-01-30] MEDS: AMINO ACIDS/PROTEIN HYDROLYS 30 ML LIQUID.PKT PO SCH ×2 (09:33→16:58)
[2021-01-30] MEDS: POLYETHYLENE GLYCOL (HEALTHYLAX) 3350 17 GM PACKET PO PRN (09:34)
[2021-01-30] MEDS: MULTIVITAMINS THER W-MINERALS COMBO TABLET (FP) PO SCH (09:34)
[2021-01-30] MEDS: ASPIRIN 81 MG CHEWABLE TABLETS PO SCH (09:34)
[2021-01-30] MEDS ORDERED: PT OWN MED DRAWER 7, Y5N ONE ×2 (10:30→21:03)
[2021-01-30] MEDS: MEGESTROL ACETATE 400 MG/10 ML UNIT DOSE CUP PO SCH (10:37)
[2021-01-30] MEDS: VANCOMYCIN 1 GRAM (PRE-DOCKED) 1,000 MG/250 ML BAG IVPB SCH (10:37)
[2021-01-30] MEDS: CHLORHEXIDINE GLUCONATE 0.12% 15ML CUP MM SCH ×2 (10:37→22:45)
[2021-01-30 11:36] LABS: ANISOCYTOSIS 1+; MACROCYTOSIS 0; PLATELET ESTIMATE NORMAL
[2021-01-30] MEDS: DEXTROSE 5%-0.45% SALINE 1,000 ML IV SCH ×2 (13:38→17:05)
[2021-01-30] MEDS: DOCUSATE SODIUM 100 MG CAPSULE (FP) PO SCH (22:45)
[2021-01-30] MEDS: MIRTAZAPINE 15 MG TABLET (FP) PO SCH (22:45)
[2021-01-30] MEDS: ATORVASTATIN CA 10 MG TABLET (FP) PO SCH (22:45)
[2021-01-30] MEDS: DONEPEZIL HCL 10 MG TABLET (FP) PO SCH (22:45)
[2021-01-30] MEDS: MELATONIN 1 MG TABLET PO SCH (23:16)
[2021-01-31] MEDS ORDERED: PIPERACILLIN/TAZOBACTAM 3.375 GM VIAL IVPB ONE ×3 (01:41→17:37)
[2021-01-31] MEDS ORDERED: DEXTROSE 5%-WATER - 50 ML IVPB ONE ×3 (01:41→17:38)
[2021-01-31] MEDS: PIPERACILLIN/TAZOB 3.375 GM 3.375 GM in DEXTROSE 5%-WATER - 50 ML IVPB SCH ×3 (01:51→17:44)
[2021-01-31] MEDS: metFORMIN HCL 500 MG TABLET (FP) PO SCH ×2 (06:26→16:38)
[2021-01-31] MEDS: QUEtiapine FUMARATE 25 MG TABLET PO SCH ×3 (06:26→21:48)
[2021-01-31] MEDS: LEVOTHYROXINE NA 50 MCG TABLET (FP) PO SCH (06:26)
[2021-01-31] MEDS: INSULIN SLIDING SCALE (NOVOLOG) 1 VIAL SQ SCH ×4 (06:26→21:57)
[2021-01-31] MEDS: AMINO ACIDS/PROTEIN HYDROLYS 30 ML LIQUID.PKT PO SCH ×2 (08:37→16:38)
[2021-01-31 09:13] LABS: BASO % 0.9 % (0-2.0); EOS % 4.4 % (0-4.5); HEMATOCRIT 31.1 % (35.4-49); HEMOGLOBIN 10.2 GM/dL (11.7-16.9); LYMPH % 18.9 % (8-40); MCHC 32.9 g/dl (32.0-35.9); MEAN CELL VOLUME 88.2 fl (80-96); MEAN PLT VOLUME 8.6 fl (7.5-11.1); MONO % 6.3 % (3.8-10.2); NEUT % 69.5 % (42.8-82.8); PLATELET COUNT 472 10^3/uL (134-434); RBC 3.52 M/mm3 (4.00-5.60); RDW 13.9 % (11.9-15.9); WHITE BLOOD COUNT 12.5 K/mm3 (4.0-10.0)
[2021-01-31] MEDS ORDERED: PT OWN MED DRAWER 7, Y5N ONE ×2 (09:19→11:41)
[2021-01-31 09:59] LABS: ALBUMIN 2.7 g/dl (3.4-5.0); BLOOD UREA NITROGEN 34.2 mg/dL (7-18); CALCIUM 8.2 mg/dL (8.5-10.1)
[2021-01-31 10:03] LABS: CREATININE 1.3 mg/dL (0.55-1.3)
[2021-01-31 10:04] LABS: TOT PROT 5.1 g/dl (6.4-8.2)
[2021-01-31 10:06] LABS: BILIRUBIN,TOTAL 0.4 mg/dL (0.2-1)
[2021-01-31] MEDS: CHLORHEXIDINE GLUCONATE 0.12% 15ML CUP MM SCH ×2 (10:42→21:49)
[2021-01-31] MEDS: MEGESTROL ACETATE 400 MG/10 ML UNIT DOSE CUP PO SCH (10:51)
[2021-01-31] MEDS: MULTIVITAMINS THER W-MINERALS COMBO TABLET (FP) PO SCH (10:51)
[2021-01-31] MEDS: ASPIRIN 81 MG CHEWABLE TABLETS PO SCH (10:51)
[2021-01-31] MEDS: LACTOBACILLUS ACIDOPHILUS 1 TABLET PO SCH (10:51)
[2021-01-31] MEDS: LISINOPRIL 10 MG TABLET PO SCH (10:51)
[2021-01-31 11:18] LABS: ANISOCYTOSIS 1+; MACROCYTOSIS 0; PLATELET ESTIMATE INCREASED
[2021-01-31] MEDS: VANCOMYCIN 1 GRAM (PRE-DOCKED) 1,000 MG/250 ML BAG IVPB SCH (11:42)
[2021-01-31] MEDS ORDERED: INSULIN (NOVOLOG) ASPART 100 UNITS/ML 10ML VIAL ONE (16:35)
[2021-01-31] MEDS: DONEPEZIL HCL 10 MG TABLET (FP) PO SCH (21:48)
[2021-01-31] MEDS: MIRTAZAPINE 15 MG TABLET (FP) PO SCH (21:48)
[2021-01-31] MEDS: MELATONIN 1 MG TABLET PO SCH (21:48)
[2021-01-31] MEDS: DOCUSATE SODIUM 100 MG CAPSULE (FP) PO SCH (21:48)
[2021-01-31] MEDS: ATORVASTATIN CA 10 MG TABLET (FP) PO SCH (21:48)
[2021-02-01] MEDS ORDERED: PIPERACILLIN/TAZOBACTAM 3.375 GM VIAL IVPB ONE ×2 (01:56→10:05)
[2021-02-01] MEDS ORDERED: DEXTROSE 5%-WATER - 50 ML IVPB ONE ×2 (01:56→10:05)
[2021-02-01] MEDS: PIPERACILLIN/TAZOB 3.375 GM 3.375 GM in DEXTROSE 5%-WATER - 50 ML IVPB SCH ×2 (02:11→10:15)
[2021-02-01] MEDS: DEXTROSE 5%-0.45% SALINE 1,000 ML IV SCH (02:55)
[2021-02-01] MEDS: LEVOTHYROXINE NA 50 MCG TABLET (FP) PO SCH (06:00)
[2021-02-01] MEDS: metFORMIN HCL 500 MG TABLET (FP) PO SCH (06:00)
[2021-02-01] MEDS: QUEtiapine FUMARATE 25 MG TABLET PO SCH ×2 (06:00→14:45)
[2021-02-01] MEDS: INSULIN SLIDING SCALE (NOVOLOG) 1 VIAL SQ SCH ×2 (06:01→11:07)
[2021-02-01] MEDS: LACTOBACILLUS ACIDOPHILUS 1 TABLET PO SCH (10:15)
[2021-02-01] MEDS: MULTIVITAMINS THER W-MINERALS COMBO TABLET (FP) PO SCH (10:15)
[2021-02-01] MEDS: LISINOPRIL 10 MG TABLET PO SCH (10:15)
[2021-02-01] MEDS: AMINO ACIDS/PROTEIN HYDROLYS 30 ML LIQUID.PKT PO SCH (10:15)
[2021-02-01] MEDS: ASPIRIN 81 MG CHEWABLE TABLETS PO SCH (10:15)
[2021-02-01] MEDS ORDERED: PT OWN MED DRAWER 7, Y5N ONE (10:21)
[2021-02-01] MEDS: CHLORHEXIDINE GLUCONATE 0.12% 15ML CUP MM SCH (10:22)
[2021-02-01] MEDS: MEGESTROL ACETATE 400 MG/10 ML UNIT DOSE CUP PO SCH (10:22)
[2021-02-01] MEDS: VANCOMYCIN 1 GRAM (PRE-DOCKED) 1,000 MG/250 ML BAG IVPB SCH (11:01)
[2021-02-01 14:49] VITALS: BP 107/52; PULSE 97; TEMP 97.9
== END 2021-02-01 17:01 | disposition home or self-care (01) | DRG 602 ==
LOC: JER 21:33 → JERBED 01-17 00:50 → J6S 01-17 05:42
PROVIDERS: ADMIT Hospitalist; ATTEND Internal Medicine
PROC: 2W3LX2Z Immobilization of Right Lower Extremity using Cast (ICD-10-PCS; principal; 2021-01-21)
DX: L03.211 Cellulitis of face (principal); J18.9 Pneumonia, unspecified organism; N17.9 Acute kidney failure, unspecified; E87.0 Hyperosmolality and hypernatremia; I24.8 Other forms of acute ischemic heart disease; E03.9 Hypothyroidism, unspecified; R55 Syncope and collapse; K04.7 Periapical abscess without sinus; R00.0 Tachycardia, unspecified; R50.9 Fever, unspecified; F03.90 Unspecified dementia, unspecified severity, without behavioral disturbance, psychotic disturbance, mood disturbance, and anxiety; D64.9 Anemia, unspecified; R41.82 Altered mental status, unspecified; I10 Essential (primary) hypertension; M25.571 Pain in right ankle and joints of right foot; E78.5 Hyperlipidemia, unspecified; E11.9 Type 2 diabetes mellitus without complications; S80.11XA Contusion of right lower leg, initial encounter; W18.30XA Fall on same level, unspecified, initial encounter; K21.9 Gastro-esophageal reflux disease without esophagitis; E87.6 Hypokalemia; S82.64XA Nondisplaced fracture of lateral malleolus of right fibula, initial encounter for closed fracture; D72.829 Elevated white blood cell count, unspecified; Z86.73 Personal history of transient ischemic attack (TIA), and cerebral infarction without residual deficits; Y92.098 Other place in other non-institutional residence as the place of occurrence of the external cause
CPT/HCPCS: 36415; 70486-TC; 71045-TC-FY; 71250-TC; 73610-TC-RT-FY; 73630-TC-RT-FY; 74177-TC; 80048; 80053; 81003; 82330; 82962; 83036; 83605; 83615; 83735; 83880; 84443; 84484; 85025; 85027; 85610; 85651; 85730; 86140; 87040; 87081; 87086; 93005; 93010; 93306-TC; 97116-GP; 97162-GP; 99285-25; C9803; J0131; J1644; Q9967; U0003; U0005

== ENCOUNTER 2021-02-27 18:03 | Observation (INO) | payer OTHER ==
[2021-02-27] MEDS ORDERED: amLODIPine BESYLATE 10 MG TABLET (FP) PO ONE (19:19)
[2021-02-27] MEDS ORDERED: SODIUM CHLORIDE 0.9% 500 ML INFUS.BAG IV ONE (19:30)
[2021-02-27 20:15] LABS: HEMATOCRIT 31.7 % (35.4-49); HEMOGLOBIN 10.6 GM/dL (11.7-16.9); MCH 29.8 pg (25.7-33.7); MCHC 33.4 g/dl (32.0-35.9); MEAN CELL VOLUME 89.2 fl (80-96); MEAN PLT VOLUME 9.1 fl (7.5-11.1); PLATELET COUNT 251 10^3/uL (134-434); RBC 3.55 M/mm3 (4.00-5.60); RDW 14.6 % (11.9-15.9); WHITE BLOOD COUNT 14.3 K/mm3 (4.0-10.0)
[2021-02-27] MEDS ORDERED: amLODIPine BESYLATE 5 MG TABLET (FP) ONE (20:15)
[2021-02-27 20:23] LABS: INR 1.08 (0.83-1.09)
[2021-02-27 20:25] LABS: ACTIVATED PTT 24.1 SECONDS (25.2-36.5)
[2021-02-27 20:34] LABS: CHLORIDE 110 mmol/L (98-107); SODIUM 138 mmol/L (136-145)
[2021-02-27 20:36] LABS: CALCIUM 8.3 mg/dL (8.5-10.1)
[2021-02-27 20:37] LABS: ALBUMIN 3.5 g/dl (3.4-5.0); ANION GAP 10 MMOL/L (8-16); BLOOD UREA NITROGEN 25.1 mg/dL (7-18); CO2 18 mmol/L (21-32); GLUCOSE,RANDOM 307 mg/dL (74-106)
[2021-02-27 20:40] LABS: CREATININE 1.3 mg/dL (0.55-1.3); SGOT/AST 18 U/L (15-37); SGPT/ALT 23 U/L (13-61)
[2021-02-27 20:42] LABS: BILIRUBIN,TOTAL 0.3 mg/dL (0.2-1); CHOLESTEROL 81 mg/dL (50-200); TOT PROT 6.2 g/dl (6.4-8.2); TRIGLYCERIDES 56 mg/dL (0-150)
[2021-02-27 20:43] LABS: ALK PHOS 64 U/L (45-117); HDL CHOLESTEROL 40 mg/dL (40-60); LDL CHOLESTEROL (ONLY SJRH) 34 mg/dL (5-100)
[2021-02-27 21:23] LABS: URINE APPEARANCE CLEAR; URINE BILIRUBIN NEGATIVE (NEGATIVE); URINE COLOR YELLOW; URINE GLUCOSE (UA) 2+ (NEGATIVE); URINE KETONE NEGATIVE (NEGATIVE); URINE LEUK ESTERASE NEGATIVE (NEGATIVE); URINE NITRITE NEGATIVE (NEGATIVE); URINE PROTEIN NEGATIVE (NEGATIVE); URINE UROBILINOGEN 0.2 mg/dL (0.2-1.0)
[2021-02-27 22:46] LABS: BLOOD UREA NITROGEN 24.2 mg/dL (7-18); CALCIUM 7.9 mg/dL (8.5-10.1)
[2021-02-27 22:47] LABS: ALBUMIN 3.1 g/dl (3.4-5.0)
[2021-02-27 22:49] LABS: CREATININE 1.2 mg/dL (0.55-1.3)
[2021-02-27 22:51] LABS: BILIRUBIN,TOTAL 0.3 mg/dL (0.2-1); TOT PROT 5.3 g/dl (6.4-8.2)
[2021-02-28] MEDS ORDERED: LEVOTHYROXINE NA 50 MCG TABLET (FP) PO SCH (06:00)
[2021-02-28] MEDS ORDERED: QUEtiapine FUMARATE 25 MG TABLET ONE ×2 (06:24→15:12)
[2021-02-28] MEDS ORDERED: HEPARIN NA (PORCINE) 5,000 UNITS/ML 1ML VIAL ONE ×2 (06:24→11:36)
[2021-02-28] MEDS ORDERED: LEVOTHYROXINE NA 25 MCG TABLET (FP) ONE ×2 (06:24→15:12)
[2021-02-28] MEDS: HEPARIN NA (PORCINE) 5,000 UNITS/ML 1ML VIAL SQ SCH ×2 (06:29→15:19)
[2021-02-28] MEDS: QUEtiapine FUMARATE 25 MG TABLET PO SCH ×2 (06:29→15:19)
[2021-02-28] MEDS: INSULIN SLIDING SCALE (NOVOLOG) 1 VIAL SQ SCH ×3 (08:00→17:55)
[2021-02-28 08:14] LABS: HEMATOCRIT 27.7 % (35.4-49); HEMOGLOBIN 9.5 GM/dL (11.7-16.9); MCH 30.5 pg (25.7-33.7); MCHC 34.2 g/dl (32.0-35.9); MEAN CELL VOLUME 89.1 fl (80-96); MEAN PLT VOLUME 9.2 fl (7.5-11.1); PLATELET COUNT 258 10^3/uL (134-434); RBC 3.11 M/mm3 (4.00-5.60); RDW 14.8 % (11.9-15.9); WHITE BLOOD COUNT 12.2 K/mm3 (4.0-10.0)
[2021-02-28 08:45] LABS: BLOOD UREA NITROGEN 22.6 mg/dL (7-18); CALCIUM 8.4 mg/dL (8.5-10.1); MAGNESIUM 1.5 mg/dL (1.8-2.4)
[2021-02-28 08:49] LABS: CREATININE 1.1 mg/dL (0.55-1.3)
[2021-02-28 09:59] LABS: ANISOCYTOSIS 0; HELMET CELLS 0; HOWELL-JOLLY BODIES 0; MACROCYTOSIS 0; OVALOCYTE 0; PLATELET ESTIMATE NORMAL; ROULEAU 0; SICKELED CELLS 0; TARGET CELLS 0; TEAR DROP CELLS 0; TOXIC GRANULATION 0
[2021-02-28] MEDS ORDERED: LISINOPRIL 10 MG TABLET PO SCH (10:00)
[2021-02-28] MEDS: ASPIRIN 325 MG TABLET PO SCH (11:00)
[2021-02-28] MEDS: FUROSEMIDE 20 MG TABLET (FP) PO SCH (11:00)
[2021-02-28] MEDS: MEGESTROL ACETATE 400 MG/10 ML UNIT DOSE CUP PO SCH (11:00)
[2021-02-28] MEDS: LISINOPRIL 10 MG TABLET PO SCH (11:00)
[2021-02-28] MEDS: PANTOPRAZOLE 40 MG TABLET PO SCH (11:00)
[2021-02-28] MEDS ORDERED: PANTOPRAZOLE 40 MG TABLET ONE (11:34)
[2021-02-28] MEDS ORDERED: ASPIRIN 325 MG ENTERIC COATED TABLET (FP) ONE (11:35)
[2021-02-28] MEDS ORDERED: LISINOPRIL 5 MG TABLET ONE (11:35)
[2021-02-28] MEDS ORDERED: DONEPEZIL HCL 5 MG TABLET (FP) ONE (15:12)
[2021-02-28] MEDS: MAGNESIUM OXIDE 400 MG TABLET (FP) PO SCH (15:19)
[2021-02-28] MEDS: LEVOTHYROXINE NA 75 MCG TABLET (FP) PO SCH (15:19)
[2021-03-01] MEDS ORDERED: MAGNESIUM OXIDE 400 MG TABLET (FP) ONE (00:34)
[2021-03-01] MEDS ORDERED: QUEtiapine FUMARATE 25 MG TABLET ONE (00:35)
[2021-03-01] MEDS ORDERED: DONEPEZIL HCL 5 MG TABLET (FP) ONE (00:35)
[2021-03-01] MEDS ORDERED: ATORVASTATIN CA 10 MG TABLET (FP) ONE (00:35)
[2021-03-01] MEDS ORDERED: HEPARIN NA (PORCINE) 5,000 UNITS/ML 1ML VIAL ONE (00:35)
[2021-03-01] MEDS ORDERED: INSULIN SLIDING SCALE (NOVOLOG) 1 VIAL SQ ONE (00:36)
[2021-03-01] MEDS ORDERED: INSULIN (LEVEMIR) 100 UNITS/ML UNITS SQ ONE (00:36)
[2021-03-01] MEDS: DONEPEZIL HCL 10 MG TABLET (FP) PO SCH ×2 (00:46→21:42)
[2021-03-01] MEDS: HEPARIN NA (PORCINE) 5,000 UNITS/ML 1ML VIAL SQ SCH ×4 (00:46→21:41)
[2021-03-01] MEDS: QUEtiapine FUMARATE 25 MG TABLET PO SCH ×4 (00:46→21:41)
[2021-03-01] MEDS: ATORVASTATIN CA 10 MG TABLET (FP) PO SCH ×2 (00:46→21:41)
[2021-03-01] MEDS: MAGNESIUM OXIDE 400 MG TABLET (FP) PO SCH ×3 (00:46→21:41)
[2021-03-01] MEDS: INSULIN SLIDING SCALE (NOVOLOG) 1 VIAL SQ SCH ×5 (00:47→21:51)
[2021-03-01] MEDS: INSULIN (LEVEMIR) 100 UNITS/ML UNITS SQ SCH ×2 (00:54→22:08)
[2021-03-01 01:44] VITALS: BMI 21.3
[2021-03-01] MEDS: LEVOTHYROXINE NA 75 MCG TABLET (FP) PO SCH (06:13)
[2021-03-01] MEDS ORDERED: PT OWN MED DRAWER 7, Y5N ONE (08:53)
[2021-03-01] MEDS: FUROSEMIDE 20 MG TABLET (FP) PO SCH (09:30)
[2021-03-01] MEDS: MEGESTROL ACETATE 400 MG/10 ML UNIT DOSE CUP PO SCH (09:30)
[2021-03-01] MEDS: PANTOPRAZOLE 40 MG TABLET PO SCH (09:30)
[2021-03-01] MEDS: ASPIRIN 325 MG TABLET PO SCH (09:30)
[2021-03-01] MEDS: LISINOPRIL 10 MG TABLET PO SCH (09:30)
[2021-03-02] MEDS: QUEtiapine FUMARATE 25 MG TABLET PO SCH ×2 (06:22→14:14)
[2021-03-02] MEDS: HEPARIN NA (PORCINE) 5,000 UNITS/ML 1ML VIAL SQ SCH ×2 (06:22→14:14)
[2021-03-02] MEDS: LEVOTHYROXINE NA 75 MCG TABLET (FP) PO SCH (06:22)
[2021-03-02] MEDS: INSULIN SLIDING SCALE (NOVOLOG) 1 VIAL SQ SCH ×3 (06:34→17:43)
[2021-03-02] MEDS ORDERED: PT OWN MED DRAWER 7, Y5N ONE (09:03)
[2021-03-02] MEDS: FUROSEMIDE 20 MG TABLET (FP) PO SCH (09:17)
[2021-03-02] MEDS: LISINOPRIL 10 MG TABLET PO SCH (09:17)
[2021-03-02] MEDS: PANTOPRAZOLE 40 MG TABLET PO SCH (09:17)
[2021-03-02] MEDS: ASPIRIN 325 MG TABLET PO SCH (09:17)
[2021-03-02] MEDS: MAGNESIUM OXIDE 400 MG TABLET (FP) PO SCH (09:17)
[2021-03-02] MEDS: MEGESTROL ACETATE 400 MG/10 ML UNIT DOSE CUP PO SCH (09:18)
[2021-03-02 14:05] LABS: BASO % 0.7 % (0-2.0); EOS % 3.7 % (0-4.5); HEMATOCRIT 32.4 % (35.4-49); LYMPH % 20.4 % (8-40); MCHC 34.1 g/dl (32.0-35.9); MEAN CELL VOLUME 88.1 fl (80-96); MEAN PLT VOLUME 8.8 fl (7.5-11.1); MONO % 7.8 % (3.8-10.2); NEUT % 67.4 % (42.8-82.8); PLATELET COUNT 330 10^3/uL (134-434); RBC 3.67 M/mm3 (4.00-5.60); WHITE BLOOD COUNT 13.7 K/mm3 (4.0-10.0)
[2021-03-02 14:44] VITALS: BP 103/49; PULSE 94; TEMP 97.3
== END 2021-03-02 20:30 | disposition home health service (06) ==
LOC: JER 18:03 → INTOOBSV 22:12 → UNDOADMOB 22:12 → JERBED 22:12 → J4W 03-01 00:58 → JERBED 03-01 15:00
PROVIDERS: ADMIT Internal Medicine; ATTEND Internal Medicine
PROC: 3E023GC Introduction of Other Therapeutic Substance into Muscle, Percutaneous Approach (ICD-10-PCS; principal; 2021-03-01)
PROC: 3E013VG Introduction of Insulin into Subcutaneous Tissue, Percutaneous Approach (ICD-10-PCS; 2021-03-01)
PROC: 3E0337Z Introduction of Electrolytic and Water Balance Substance into Peripheral Vein, Percutaneous Approach (ICD-10-PCS; 2021-03-01)
DX: F03.90 Unspecified dementia, unspecified severity, without behavioral disturbance, psychotic disturbance, mood disturbance, and anxiety (principal); S82.64XA Nondisplaced fracture of lateral malleolus of right fibula, initial encounter for closed fracture; E03.9 Hypothyroidism, unspecified; R47.81 Slurred speech; X58.XXXA Exposure to other specified factors, initial encounter; Y93.89 Activity, other specified; Y92.89 Other specified places as the place of occurrence of the external cause; D72.829 Elevated white blood cell count, unspecified; R47.1 Dysarthria and anarthria; R25.1 Tremor, unspecified
CPT/HCPCS: 36415; 70450-TC; 71045-TC-FY; 80048; 80053; 80061; 81003; 82550; 82962; 83735; 84439; 84443; 84484; 85025; 85027; 85610; 85730; 87086; 93005; 93010; 96360; 96372; 97116-GP; 97162-GP; 99285-25; C9803; G0378; J1644; U0003; U0005

== ENCOUNTER 2021-06-06 13:31 | Emergency (ER) | payer OTHER ==
[2021-06-06 13:47] VITALS: BP 132/71; PULSE 101; BMI 21.7
== END 2021-06-06 15:27 | disposition home or self-care (01) ==
LOC: JER 13:31
DX: S90.821A Blister (nonthermal), right foot, initial encounter (principal); Y99.9 Unspecified external cause status
CPT/HCPCS: 99281-25

== ENCOUNTER 2021-09-07 12:46 | Inpatient (IN) | payer OTHER ==
[2021-09-07] MEDS ORDERED: SODIUM CHLORIDE 0.9% 500 ML INFUS.BAG IV ONE ×2 (14:02→16:20)
[2021-09-07 14:39] LABS: HEMATOCRIT 32.3 % (35.4-49); HEMOGLOBIN 10.6 GM/dL (11.7-16.9); MCH 28.8 pg (25.7-33.7); MCHC 32.6 g/dl (32.0-35.9); MEAN CELL VOLUME 88.2 fl (80-96); MEAN PLT VOLUME 8.7 fl (7.5-11.1); PLATELET COUNT 529 10^3/uL (134-434); RBC 3.66 M/mm3 (4.00-5.60); RDW 14.2 % (11.9-15.9); WHITE BLOOD COUNT 21.3 K/mm3 (4.0-10.0)
[2021-09-07 14:47] LABS: INR 1.18 (0.83-1.09); PROTHROMBIN TIME (PATIENT) 13.6 SEC (9.7-13.0)
[2021-09-07 14:49] LABS: ACTIVATED PTT 27.3 SECONDS (25.2-36.5)
[2021-09-07 14:53] LABS: URINE APPEARANCE CLEAR; URINE BILIRUBIN NEGATIVE (NEGATIVE); URINE COLOR YELLOW; URINE GLUCOSE (UA) NEGATIVE (NEGATIVE); URINE KETONE NEGATIVE (NEGATIVE); URINE LEUK ESTERASE NEGATIVE (NEGATIVE); URINE NITRITE NEGATIVE (NEGATIVE); URINE PROTEIN NEGATIVE (NEGATIVE); URINE UROBILINOGEN 0.2 mg/dL (0.2-1.0)
[2021-09-07 15:09] LABS: ALBUMIN 3.2 g/dl (3.4-5.0); ANISOCYTOSIS 1+; BLOOD UREA NITROGEN 33.5 mg/dL (7-18); MACROCYTOSIS 0
[2021-09-07 15:12] LABS: CREATININE 1.2 mg/dL (0.55-1.3)
[2021-09-07 15:14] LABS: BILIRUBIN,TOTAL 0.3 mg/dL (0.2-1); TOT PROT 5.9 g/dl (6.4-8.2)
[2021-09-07] MEDS ORDERED: VANCOMYCIN 1 GM in D5W (PRE-DOCKED) 1,000 MG/250 ML IVPB ONE (15:22)
[2021-09-07] MEDS ORDERED: PIPERACILLIN/TAZOB 3.375 GM 3.375 GM in DEXTROSE 5%-WATER - 50 ML IVPB ONE (15:23)
[2021-09-07 15:34] LABS: LACTIC ACID 3.4 mmol/L (0.4-2.0)
[2021-09-07] MEDS ORDERED: VANCOMYCIN 1 GRAM (PRE-DOCKED) 1,000 MG/250 ML BAG IVPB ONE (15:40)
[2021-09-07] MEDS ORDERED: PIPERACILLIN/TAZOB 3.375 GM 3.375 GM/50 ML BAG IVPB ONE (15:40)
[2021-09-07 16:38] LABS: VENOUS PCO2 35.3 mmHg (38-52); VENOUS PH 7.329 (7.310-7.410)
[2021-09-07 16:56] LABS: LACTIC ACID 3.2 mmol/L (0.4-2.0)
[2021-09-07] MEDS ORDERED: ACETAMINOPHEN 1000 MG/100 ML BAG IVPB PRN (21:43)
[2021-09-07] MEDS: DEXTROSE 5%-NORMAL SALINE 1,000 ML IV SCH (22:47)
[2021-09-07 23:35] VITALS: BMI 24.5
[2021-09-08] MEDS ORDERED: PIPERACILLIN/TAZOBACTAM 2.25 GM VIAL IVPB ONE ×2 (00:23→07:12)
[2021-09-08] MEDS ORDERED: DEXTROSE 5%-WATER - 50 ML IVPB ONE ×4 (00:24→15:40)
[2021-09-08] MEDS: PIPERACILLIN/TAZOB 2.25 GM 2.25 GM in DEXTROSE 5%-WATER - 50 ML IVPB SCH ×4 (00:49→11:54)
[2021-09-08] MEDS: INSULIN SLIDING SCALE (NOVOLOG) 1 VIAL SQ SCH ×2 (06:27→17:15)
[2021-09-08] MEDS: ENOXAPARIN NA (PORCINE) 40 MG/0.4 ML DISP.SYRIN SQ SCH (09:43)
[2021-09-08] MEDS ORDERED: PIPERACILLIN/TAZOBACTAM 3.375 GM VIAL IVPB ONE ×2 (11:56→15:40)
[2021-09-08] MEDS: PIPERACILLIN/TAZOB 3.375 GM 3.375 GM in DEXTROSE 5%-WATER - 50 ML IVPB SCH ×2 (11:59→17:16)
[2021-09-08 12:42] LABS: HEMOGLOBIN 9.4 GM/dL (11.7-16.9); MCH 28.6 pg (25.7-33.7); MCHC 32.4 g/dl (32.0-35.9); MEAN CELL VOLUME 88.1 fl (80-96); MEAN PLT VOLUME 8.1 fl (7.5-11.1); PLATELET COUNT 519 10^3/uL (134-434); RDW 13.9 % (11.9-15.9); WHITE BLOOD COUNT 16.5 K/mm3 (4.0-10.0)
[2021-09-08 13:05] LABS: ALBUMIN 2.9 g/dl (3.4-5.0); CALCIUM 8.8 mg/dL (8.5-10.1)
[2021-09-08 13:06] LABS: BLOOD UREA NITROGEN 18.7 mg/dL (7-18)
[2021-09-08 13:08] LABS: CREATININE 0.9 mg/dL (0.55-1.3)
[2021-09-08 13:10] LABS: BILIRUBIN,TOTAL 0.4 mg/dL (0.2-1); TOT PROT 5.6 g/dl (6.4-8.2)
[2021-09-08 14:41] LABS: ANISOCYTOSIS 1+; MACROCYTOSIS 0; PLATELET ESTIMATE INCREASED
[2021-09-08] MEDS: VANCOMYCIN/WATER FOR INJ (PEG) 1,000 MG/200 ML BAG IVPB SCH (15:34)
[2021-09-09] MEDS ORDERED: PIPERACILLIN/TAZOBACTAM 3.375 GM VIAL IVPB ONE ×4 (03:09→16:01)
[2021-09-09] MEDS ORDERED: DEXTROSE 5%-WATER - 50 ML IVPB ONE ×4 (03:10→16:01)
[2021-09-09] MEDS: PIPERACILLIN/TAZOB 3.375 GM 3.375 GM in DEXTROSE 5%-WATER - 50 ML IVPB SCH ×3 (03:41→18:28)
[2021-09-09] MEDS: DEXTROSE 5%-NORMAL SALINE 1,000 ML IV SCH (03:42)
[2021-09-09] MEDS: INSULIN SLIDING SCALE (NOVOLOG) 1 VIAL SQ SCH ×2 (06:00→15:52)
[2021-09-09] MEDS ORDERED: ACETAMINOPHEN 325 MG TABLET (FP) PO PRN (10:21)
[2021-09-09] MEDS ORDERED: ALPRAZolam 0.25 MG TABLET PO ONE (10:30)
[2021-09-09] MEDS: ENOXAPARIN NA (PORCINE) 40 MG/0.4 ML DISP.SYRIN SQ SCH (11:02)
[2021-09-09] MEDS: COLLAGENASE CLOSTRIDIUM HIST. 30 GRAMS TUBE TP SCH (11:04)
[2021-09-09] MEDS: POLYETHYLENE GLYCOL (HEALTHYLAX) 3350 17 GM PACKET PO SCH (13:20)
[2021-09-09] MEDS: VANCOMYCIN/WATER FOR INJ (PEG) 1,000 MG/200 ML BAG IVPB SCH (15:42)
[2021-09-10] MEDS ORDERED: PIPERACILLIN/TAZOBACTAM 3.375 GM VIAL IVPB ONE ×4 (01:31→17:21)
[2021-09-10] MEDS ORDERED: DEXTROSE 5%-WATER - 50 ML IVPB ONE ×4 (01:31→17:21)
[2021-09-10] MEDS: PIPERACILLIN/TAZOB 3.375 GM 3.375 GM in DEXTROSE 5%-WATER - 50 ML IVPB SCH ×3 (01:50→17:57)
[2021-09-10] MEDS: DEXTROSE 5%-NORMAL SALINE 1,000 ML IV SCH (04:49)
[2021-09-10] MEDS: INSULIN SLIDING SCALE (NOVOLOG) 1 VIAL SQ SCH ×2 (06:01→16:49)
[2021-09-10] MEDS: ENOXAPARIN NA (PORCINE) 40 MG/0.4 ML DISP.SYRIN SQ SCH (10:51)
[2021-09-10] MEDS: COLLAGENASE CLOSTRIDIUM HIST. 30 GRAMS TUBE TP SCH (10:51)
[2021-09-10] MEDS: POLYETHYLENE GLYCOL (HEALTHYLAX) 3350 17 GM PACKET PO SCH (10:51)
[2021-09-10] MEDS: VANCOMYCIN/WATER FOR INJ (PEG) 1,000 MG/200 ML BAG IVPB SCH (17:05)
[2021-09-11] MEDS ORDERED: DEXTROSE 5%-WATER - 50 ML IVPB ONE ×3 (01:05→16:07)
[2021-09-11] MEDS ORDERED: PIPERACILLIN/TAZOBACTAM 3.375 GM VIAL IVPB ONE ×3 (01:05→16:06)
[2021-09-11] MEDS: PIPERACILLIN/TAZOB 3.375 GM 3.375 GM in DEXTROSE 5%-WATER - 50 ML IVPB SCH ×3 (01:28→17:12)
[2021-09-11] MEDS: INSULIN SLIDING SCALE (NOVOLOG) 1 VIAL SQ SCH ×2 (06:35→16:21)
[2021-09-11] MEDS: ENOXAPARIN NA (PORCINE) 40 MG/0.4 ML DISP.SYRIN SQ SCH (09:13)
[2021-09-11] MEDS: POLYETHYLENE GLYCOL (HEALTHYLAX) 3350 17 GM PACKET PO SCH (09:13)
[2021-09-11 09:19] LABS: ALBUMIN 2.7 g/dl (3.4-5.0); HEMATOCRIT 29.1 % (35.4-49); HEMOGLOBIN 9.7 GM/dL (11.7-16.9); MCH 28.8 pg (25.7-33.7); MCHC 33.2 g/dl (32.0-35.9); MEAN CELL VOLUME 86.9 fl (80-96); MEAN PLT VOLUME 8.4 fl (7.5-11.1); PLATELET COUNT 479 10^3/uL (134-434); RBC 3.35 M/mm3 (4.00-5.60); RDW 13.5 % (11.9-15.9); WHITE BLOOD COUNT 16.3 K/mm3 (4.0-10.0)
[2021-09-11 09:22] LABS: CREATININE 0.7 mg/dL (0.55-1.3)
[2021-09-11 09:23] LABS: BILIRUBIN,TOTAL 0.4 mg/dL (0.2-1)
[2021-09-11 09:24] LABS: TOT PROT 5.4 g/dl (6.4-8.2)
[2021-09-11 10:56] LABS: ANISOCYTOSIS 0; HELMET CELLS 0; HOWELL-JOLLY BODIES 0; MACROCYTOSIS 0; OVALOCYTE 0; ROULEAU 0; SICKELED CELLS 0; TARGET CELLS 0; TEAR DROP CELLS 0; TOXIC GRANULATION 0
[2021-09-11] MEDS: COLLAGENASE CLOSTRIDIUM HIST. 30 GRAMS TUBE TP SCH (14:14)
[2021-09-12] MEDS ORDERED: PIPERACILLIN/TAZOBACTAM 3.375 GM VIAL IVPB ONE ×3 (00:34→16:41)
[2021-09-12] MEDS ORDERED: DEXTROSE 5%-WATER - 50 ML IVPB ONE ×3 (00:34→16:41)
[2021-09-12] MEDS: PIPERACILLIN/TAZOB 3.375 GM 3.375 GM in DEXTROSE 5%-WATER - 50 ML IVPB SCH ×3 (01:35→17:15)
[2021-09-12] MEDS: INSULIN SLIDING SCALE (NOVOLOG) 1 VIAL SQ SCH ×2 (06:04→16:38)
[2021-09-12 07:54] LABS: HEMATOCRIT 27.9 % (35.4-49); HEMOGLOBIN 9.3 GM/dL (11.7-16.9); MCH 28.9 pg (25.7-33.7); MCHC 33.4 g/dl (32.0-35.9); MEAN CELL VOLUME 86.7 fl (80-96); MEAN PLT VOLUME 7.9 fl (7.5-11.1); PLATELET COUNT 455 10^3/uL (134-434); RBC 3.22 M/mm3 (4.00-5.60); RDW 13.9 % (11.9-15.9); WHITE BLOOD COUNT 16.2 K/mm3 (4.0-10.0)
[2021-09-12 08:02] LABS: ALBUMIN 2.6 g/dl (3.4-5.0); BLOOD UREA NITROGEN 10.9 mg/dL (7-18); CALCIUM 8.6 mg/dL (8.5-10.1)
[2021-09-12 08:05] LABS: CREATININE 0.8 mg/dL (0.55-1.3)
[2021-09-12 08:07] LABS: BILIRUBIN,TOTAL 0.3 mg/dL (0.2-1); TOT PROT 5.2 g/dl (6.4-8.2)
[2021-09-12] MEDS: POLYETHYLENE GLYCOL (HEALTHYLAX) 3350 17 GM PACKET PO SCH (09:29)
[2021-09-12] MEDS: ENOXAPARIN NA (PORCINE) 40 MG/0.4 ML DISP.SYRIN SQ SCH (09:29)
[2021-09-12] MEDS: COLLAGENASE CLOSTRIDIUM HIST. 30 GRAMS TUBE TP SCH (11:18)
[2021-09-12 11:55] LABS: ANISOCYTOSIS 0; MACROCYTOSIS 0
[2021-09-12] MEDS: AMINO ACIDS/PROTEIN HYDROLYS 30 ML LIQUID.PKT PO SCH (16:42)
[2021-09-13] MEDS ORDERED: DEXTROSE 5%-WATER - 50 ML IVPB ONE ×3 (01:12→18:02)
[2021-09-13] MEDS ORDERED: PIPERACILLIN/TAZOBACTAM 3.375 GM VIAL IVPB ONE ×3 (01:12→18:02)
[2021-09-13] MEDS: PIPERACILLIN/TAZOB 3.375 GM 3.375 GM in DEXTROSE 5%-WATER - 50 ML IVPB SCH ×3 (01:41→18:12)
[2021-09-13] MEDS: INSULIN SLIDING SCALE (NOVOLOG) 1 VIAL SQ SCH ×2 (06:03→18:11)
[2021-09-13] MEDS: AMINO ACIDS/PROTEIN HYDROLYS 30 ML LIQUID.PKT PO SCH ×2 (09:16→18:12)
[2021-09-13] MEDS: POLYETHYLENE GLYCOL (HEALTHYLAX) 3350 17 GM PACKET PO SCH (12:04)
[2021-09-13] MEDS: MULTIVITAMINS (DAILY MVI) TABLET (FP) PO SCH (12:04)
[2021-09-13] MEDS: ENOXAPARIN NA (PORCINE) 40 MG/0.4 ML DISP.SYRIN SQ SCH (12:05)
[2021-09-13] MEDS: ASCORBIC ACID 500 MG TABLET (FP) PO SCH (12:21)
[2021-09-13] MEDS: ZINC SULFATE 220 MG CAPSULE (FP) PO SCH (12:21)
[2021-09-13 14:20] LABS: HEMATOCRIT 27.9 % (35.4-49); HEMOGLOBIN 9.3 GM/dL (11.7-16.9); MCH 28.9 pg (25.7-33.7); MCHC 33.2 g/dl (32.0-35.9); MEAN CELL VOLUME 87.2 fl (80-96); MEAN PLT VOLUME 8.3 fl (7.5-11.1); PLATELET COUNT 487 10^3/uL (134-434); RDW 14.3 % (11.9-15.9); WHITE BLOOD COUNT 16.4 K/mm3 (4.0-10.0)
[2021-09-13 14:37] LABS: CALCIUM 8.1 mg/dL (8.5-10.1)
[2021-09-13 14:38] LABS: BLOOD UREA NITROGEN 17.7 mg/dL (7-18)
[2021-09-13 15:14] LABS: ANISOCYTOSIS 0; MACROCYTOSIS 0; OVALOCYTE 1+
[2021-09-13 15:20] LABS: ERYTHROCYTE SEDIMENTATION RATE 29 mm/hr (0-20)
[2021-09-13] MEDS: COLLAGENASE CLOSTRIDIUM HIST. 30 GRAMS TUBE TP SCH (18:12)
[2021-09-13] MEDS: MIRTAZAPINE 15 MG TABLET (FP) PO SCH (21:44)
[2021-09-13] MEDS: ATORVASTATIN CA 10 MG TABLET (FP) PO SCH (21:44)
[2021-09-14] MEDS ORDERED: DEXTROSE 5%-WATER - 50 ML IVPB ONE ×3 (00:06→16:54)
[2021-09-14] MEDS ORDERED: PIPERACILLIN/TAZOBACTAM 3.375 GM VIAL IVPB ONE ×3 (00:06→16:54)
[2021-09-14] MEDS: PIPERACILLIN/TAZOB 3.375 GM 3.375 GM in DEXTROSE 5%-WATER - 50 ML IVPB SCH ×3 (01:06→17:13)
[2021-09-14] MEDS: INSULIN SLIDING SCALE (NOVOLOG) 1 VIAL SQ SCH ×2 (06:31→17:15)
[2021-09-14] MEDS: LEVOTHYROXINE NA 75 MCG TABLET (FP) PO SCH (06:31)
[2021-09-14 09:23] LABS: BASO % 0.6 % (0-2.0); EOS % 3.3 % (0-4.5); HEMATOCRIT 30.1 % (35.4-49); HEMOGLOBIN 10.1 GM/dL (11.7-16.9); LYMPH % 16.2 % (8-40); MCH 29.2 pg (25.7-33.7); MCHC 33.7 g/dl (32.0-35.9); MEAN CELL VOLUME 86.8 fl (80-96); MEAN PLT VOLUME 7.8 fl (7.5-11.1); NEUT % 72.9 % (42.8-82.8); PLATELET COUNT 535 10^3/uL (134-434); RBC 3.47 M/mm3 (4.00-5.60); RDW 14.4 % (11.9-15.9); WHITE BLOOD COUNT 17.9 K/mm3 (4.0-10.0)
[2021-09-14 09:51] LABS: ANISOCYTOSIS 0; HELMET CELLS 0; HOWELL-JOLLY BODIES 0; MACROCYTOSIS 0; OVALOCYTE 0; ROULEAU 0; SICKELED CELLS 0; TARGET CELLS 0; TEAR DROP CELLS 0; TOXIC GRANULATION 0
[2021-09-14 09:52] LABS: ALBUMIN 2.8 g/dl (3.4-5.0)
[2021-09-14 09:55] LABS: CALCIUM 8.6 mg/dL (8.5-10.1)
[2021-09-14 09:56] LABS: BLOOD UREA NITROGEN 16.8 mg/dL (7-18)
[2021-09-14 09:58] LABS: CREATININE 0.8 mg/dL (0.55-1.3)
[2021-09-14 09:59] LABS: BILIRUBIN,TOTAL 0.3 mg/dL (0.2-1)
[2021-09-14 10:00] LABS: TOT PROT 5.6 g/dl (6.4-8.2)
[2021-09-14] MEDS: POLYETHYLENE GLYCOL (HEALTHYLAX) 3350 17 GM PACKET PO SCH (11:20)
[2021-09-14] MEDS: AMINO ACIDS/PROTEIN HYDROLYS 30 ML LIQUID.PKT PO SCH ×2 (11:20→17:12)
[2021-09-14] MEDS: ASPIRIN 81 MG CHEWABLE TABLETS PO SCH (11:21)
[2021-09-14] MEDS: ENOXAPARIN NA (PORCINE) 40 MG/0.4 ML DISP.SYRIN SQ SCH (11:21)
[2021-09-14] MEDS: ZINC SULFATE 220 MG CAPSULE (FP) PO SCH (11:21)
[2021-09-14] MEDS: ASCORBIC ACID 500 MG TABLET (FP) PO SCH (11:21)
[2021-09-14] MEDS: PANTOPRAZOLE 40 MG TABLET PO SCH (11:22)
[2021-09-14] MEDS: MULTIVITAMINS (DAILY MVI) TABLET (FP) PO SCH (11:22)
[2021-09-14] MEDS: COLLAGENASE CLOSTRIDIUM HIST. 30 GRAMS TUBE TP SCH (11:23)
[2021-09-14] MEDS: MIRTAZAPINE 15 MG TABLET (FP) PO SCH (21:08)
[2021-09-14] MEDS: ATORVASTATIN CA 10 MG TABLET (FP) PO SCH (21:08)
[2021-09-15] MEDS ORDERED: PIPERACILLIN/TAZOBACTAM 3.375 GM VIAL IVPB ONE ×3 (01:40→16:34)
[2021-09-15] MEDS ORDERED: DEXTROSE 5%-WATER - 50 ML IVPB ONE ×3 (01:40→16:34)
[2021-09-15] MEDS: PIPERACILLIN/TAZOB 3.375 GM 3.375 GM in DEXTROSE 5%-WATER - 50 ML IVPB SCH ×4 (02:20→17:47)
[2021-09-15] MEDS: INSULIN SLIDING SCALE (NOVOLOG) 1 VIAL SQ SCH ×2 (06:02→16:43)
[2021-09-15] MEDS: LEVOTHYROXINE NA 75 MCG TABLET (FP) PO SCH (06:02)
[2021-09-15] MEDS: AMINO ACIDS/PROTEIN HYDROLYS 30 ML LIQUID.PKT PO SCH ×2 (10:26→16:44)
[2021-09-15] MEDS: PANTOPRAZOLE 40 MG TABLET PO SCH (10:27)
[2021-09-15] MEDS: ASPIRIN 81 MG CHEWABLE TABLETS PO SCH (10:27)
[2021-09-15] MEDS: ASCORBIC ACID 500 MG TABLET (FP) PO SCH (10:27)
[2021-09-15] MEDS: ZINC SULFATE 220 MG CAPSULE (FP) PO SCH (10:27)
[2021-09-15] MEDS: POLYETHYLENE GLYCOL (HEALTHYLAX) 3350 17 GM PACKET PO SCH (10:30)
[2021-09-15] MEDS: COLLAGENASE CLOSTRIDIUM HIST. 30 GRAMS TUBE TP SCH (10:30)
[2021-09-15] MEDS: MULTIVITAMINS (DAILY MVI) TABLET (FP) PO SCH (10:30)
[2021-09-15] MEDS: ENOXAPARIN NA (PORCINE) 40 MG/0.4 ML DISP.SYRIN SQ SCH (14:49)
[2021-09-15] MEDS ORDERED: INSULIN (NOVOLOG) ASPART 100 UNITS/ML 10ML VIAL ONE (16:42)
[2021-09-15] MEDS: MIRTAZAPINE 15 MG TABLET (FP) PO SCH (21:01)
[2021-09-15] MEDS: ATORVASTATIN CA 10 MG TABLET (FP) PO SCH (21:01)
[2021-09-16] MEDS ORDERED: DEXTROSE 5%-WATER - 50 ML IVPB ONE ×2 (01:18→09:51)
[2021-09-16] MEDS ORDERED: PIPERACILLIN/TAZOBACTAM 3.375 GM VIAL IVPB ONE ×2 (01:18→09:51)
[2021-09-16] MEDS: PIPERACILLIN/TAZOB 3.375 GM 3.375 GM in DEXTROSE 5%-WATER - 50 ML IVPB SCH ×2 (02:50→10:07)
[2021-09-16] MEDS: LEVOTHYROXINE NA 75 MCG TABLET (FP) PO SCH (06:25)
[2021-09-16] MEDS: INSULIN SLIDING SCALE (NOVOLOG) 1 VIAL SQ SCH ×2 (06:25→17:17)
[2021-09-16 07:28] LABS: BASO % 0.6 % (0-2.0); EOS % 1.1 % (0-4.5); HEMATOCRIT 33.2 % (35.4-49); HEMOGLOBIN 11.5 GM/dL (11.7-16.9); LYMPH % 25.4 % (8-40); MCH 30.3 pg (25.7-33.7); MCHC 34.7 g/dl (32.0-35.9); MEAN CELL VOLUME 87.5 fl (80-96); MEAN PLT VOLUME 8.6 fl (7.5-11.1); MONO % 8.1 % (3.8-10.2); NEUT % 64.8 % (42.8-82.8); PLATELET COUNT 231 10^3/uL (134-434); RBC 3.79 M/mm3 (4.00-5.60); RDW 13.2 % (11.9-15.9); WHITE BLOOD COUNT 7.1 K/mm3 (4.0-10.0)
[2021-09-16 07:46] LABS: CALCIUM 8.4 mg/dL (8.5-10.1)
[2021-09-16 07:47] LABS: ALBUMIN 3.2 g/dl (3.4-5.0); BLOOD UREA NITROGEN 9.8 mg/dL (7-18)
[2021-09-16 07:49] LABS: CREATININE 0.7 mg/dL (0.55-1.3)
[2021-09-16 07:51] LABS: BILIRUBIN,TOTAL 0.4 mg/dL (0.2-1)
[2021-09-16 08:26] LABS: ERYTHROCYTE SEDIMENTATION RATE 7 mm/hr (0-20)
[2021-09-16] MEDS: AMINO ACIDS/PROTEIN HYDROLYS 30 ML LIQUID.PKT PO SCH ×2 (10:01→17:18)
[2021-09-16] MEDS: ENOXAPARIN NA (PORCINE) 40 MG/0.4 ML DISP.SYRIN SQ SCH (10:02)
[2021-09-16] MEDS: POLYETHYLENE GLYCOL (HEALTHYLAX) 3350 17 GM PACKET PO SCH (10:02)
[2021-09-16] MEDS: ZINC SULFATE 220 MG CAPSULE (FP) PO SCH ×2 (10:02→10:20)
[2021-09-16] MEDS: MULTIVITAMINS (DAILY MVI) TABLET (FP) PO SCH ×2 (10:02→10:21)
[2021-09-16] MEDS: ASCORBIC ACID 500 MG TABLET (FP) PO SCH ×2 (10:02→10:21)
[2021-09-16] MEDS: PANTOPRAZOLE 40 MG TABLET PO SCH ×2 (10:02→10:21)
[2021-09-16] MEDS: COLLAGENASE CLOSTRIDIUM HIST. 30 GRAMS TUBE TP SCH (10:02)
[2021-09-16] MEDS: ASPIRIN 81 MG CHEWABLE TABLETS PO SCH ×2 (10:02→10:20)
[2021-09-16] MEDS ORDERED: INSULIN (NOVOLOG) ASPART 100 UNITS/ML 10ML VIAL ONE (17:06)
[2021-09-16] MEDS ORDERED: AMOX TR/POT CLAV 875MG/125MG TABLETS (FP) PO SCH (17:30)
[2021-09-16] MEDS: AMOX TR/POTASSIUM CLAVULANATE 250 MG/5 ML BOTTLE PO SCH (18:44)
[2021-09-16] MEDS: MIRTAZAPINE 15 MG TABLET (FP) PO SCH (21:40)
[2021-09-16] MEDS: ATORVASTATIN CA 10 MG TABLET (FP) PO SCH (21:40)
[2021-09-17] MEDS ORDERED: INSULIN (NOVOLOG) ASPART 100 UNITS/ML 10ML VIAL ONE (06:00)
[2021-09-17] MEDS: INSULIN SLIDING SCALE (NOVOLOG) 1 VIAL SQ SCH ×2 (06:01→16:32)
[2021-09-17] MEDS: LEVOTHYROXINE NA 75 MCG TABLET (FP) PO SCH (06:01)
[2021-09-17 07:39] LABS: HEMATOCRIT 29.2 % (35.4-49); HEMOGLOBIN 9.8 GM/dL (11.7-16.9); MCH 28.9 pg (25.7-33.7); MCHC 33.5 g/dl (32.0-35.9); MEAN CELL VOLUME 86.2 fl (80-96); PLATELET COUNT 503 10^3/uL (134-434); RBC 3.39 M/mm3 (4.00-5.60); RDW 14.2 % (11.9-15.9); WHITE BLOOD COUNT 16.4 K/mm3 (4.0-10.0)
[2021-09-17] MEDS: AMOX TR/POTASSIUM CLAVULANATE 250 MG/5 ML BOTTLE PO SCH ×2 (09:05→16:33)
[2021-09-17] MEDS: AMINO ACIDS/PROTEIN HYDROLYS 30 ML LIQUID.PKT PO SCH ×2 (09:06→16:33)
[2021-09-17] MEDS: ENOXAPARIN NA (PORCINE) 40 MG/0.4 ML DISP.SYRIN SQ SCH (09:06)
[2021-09-17] MEDS: PANTOPRAZOLE 40 MG TABLET PO SCH (09:07)
[2021-09-17] MEDS: ASCORBIC ACID 500 MG TABLET (FP) PO SCH (09:07)
[2021-09-17] MEDS: ASPIRIN 81 MG CHEWABLE TABLETS PO SCH (09:07)
[2021-09-17] MEDS: POLYETHYLENE GLYCOL (HEALTHYLAX) 3350 17 GM PACKET PO SCH (09:07)
[2021-09-17] MEDS: ZINC SULFATE 220 MG CAPSULE (FP) PO SCH (09:07)
[2021-09-17] MEDS: MULTIVITAMINS (DAILY MVI) TABLET (FP) PO SCH (09:07)
[2021-09-17] MEDS: COLLAGENASE CLOSTRIDIUM HIST. 30 GRAMS TUBE TP SCH (09:08)
[2021-09-17 09:38] LABS: ANISOCYTOSIS 1+; MACROCYTOSIS 0
[2021-09-17] MEDS: ATORVASTATIN CA 10 MG TABLET (FP) PO SCH (21:38)
[2021-09-17] MEDS: MIRTAZAPINE 15 MG TABLET (FP) PO SCH (21:38)
[2021-09-18] MEDS: LEVOTHYROXINE NA 75 MCG TABLET (FP) PO SCH (06:02)
[2021-09-18] MEDS: INSULIN SLIDING SCALE (NOVOLOG) 1 VIAL SQ SCH ×2 (06:02→17:08)
[2021-09-18] MEDS: AMINO ACIDS/PROTEIN HYDROLYS 30 ML LIQUID.PKT PO SCH ×2 (07:38→17:10)
[2021-09-18] MEDS: AMOX TR/POTASSIUM CLAVULANATE 250 MG/5 ML BOTTLE PO SCH ×2 (08:35→17:10)
[2021-09-18 08:56] LABS: HEMATOCRIT 27.4 % (35.4-49); HEMOGLOBIN 9.2 GM/dL (11.7-16.9); MCH 29.2 pg (25.7-33.7); MCHC 33.8 g/dl (32.0-35.9); MEAN CELL VOLUME 86.5 fl (80-96); MEAN PLT VOLUME 7.8 fl (7.5-11.1); PLATELET COUNT 443 10^3/uL (134-434); RBC 3.17 M/mm3 (4.00-5.60); RDW 14.4 % (11.9-15.9); WHITE BLOOD COUNT 13.2 K/mm3 (4.0-10.0)
[2021-09-18] MEDS: ENOXAPARIN NA (PORCINE) 40 MG/0.4 ML DISP.SYRIN SQ SCH (10:09)
[2021-09-18 10:13] LABS: ANISOCYTOSIS 0; MACROCYTOSIS 0; PLATELET ESTIMATE INCREASED
[2021-09-18] MEDS: ZINC SULFATE 220 MG CAPSULE (FP) PO SCH (12:48)
[2021-09-18] MEDS: POLYETHYLENE GLYCOL (HEALTHYLAX) 3350 17 GM PACKET PO SCH (12:48)
[2021-09-18] MEDS: ASPIRIN 81 MG CHEWABLE TABLETS PO SCH (12:48)
[2021-09-18] MEDS: COLLAGENASE CLOSTRIDIUM HIST. 30 GRAMS TUBE TP SCH (12:49)
[2021-09-18] MEDS: MULTIVITAMINS (DAILY MVI) TABLET (FP) PO SCH (12:49)
[2021-09-18] MEDS: PANTOPRAZOLE 40 MG TABLET PO SCH (12:49)
[2021-09-18] MEDS: ASCORBIC ACID 500 MG TABLET (FP) PO SCH (12:49)
[2021-09-18] MEDS: ATORVASTATIN CA 10 MG TABLET (FP) PO SCH (22:22)
[2021-09-18] MEDS: MIRTAZAPINE 15 MG TABLET (FP) PO SCH (22:22)
[2021-09-19] MEDS: LEVOTHYROXINE NA 75 MCG TABLET (FP) PO SCH (06:21)
[2021-09-19] MEDS: INSULIN SLIDING SCALE (NOVOLOG) 1 VIAL SQ SCH ×2 (06:30→17:11)
[2021-09-19] MEDS: ENOXAPARIN NA (PORCINE) 40 MG/0.4 ML DISP.SYRIN SQ SCH (10:47)
[2021-09-19] MEDS: POLYETHYLENE GLYCOL (HEALTHYLAX) 3350 17 GM PACKET PO SCH (10:47)
[2021-09-19] MEDS: ASPIRIN 81 MG CHEWABLE TABLETS PO SCH (10:47)
[2021-09-19] MEDS: AMINO ACIDS/PROTEIN HYDROLYS 30 ML LIQUID.PKT PO SCH ×2 (10:47→17:11)
[2021-09-19] MEDS: ASCORBIC ACID 500 MG TABLET (FP) PO SCH (10:48)
[2021-09-19] MEDS: MULTIVITAMINS (DAILY MVI) TABLET (FP) PO SCH (10:48)
[2021-09-19] MEDS: COLLAGENASE CLOSTRIDIUM HIST. 30 GRAMS TUBE TP SCH (10:48)
[2021-09-19] MEDS: ZINC SULFATE 220 MG CAPSULE (FP) PO SCH (10:48)
[2021-09-19] MEDS: PANTOPRAZOLE 40 MG TABLET PO SCH (10:48)
[2021-09-19] MEDS: AMOX TR/POTASSIUM CLAVULANATE 250 MG/5 ML BOTTLE PO SCH (10:49)
[2021-09-19] MEDS: MIRTAZAPINE 15 MG TABLET (FP) PO SCH (21:32)
[2021-09-19] MEDS: ATORVASTATIN CA 10 MG TABLET (FP) PO SCH (21:32)
[2021-09-20 00:46] VITALS: BP 131/68; PULSE 96; TEMP 98.8
== END 2021-09-20 02:10 | disposition home health service (06) | DRG 871 ==
LOC: JER 12:46 → JERBED 16:23 → J7W 21:51
PROVIDERS: ADMIT Internal Medicine; ATTEND Internal Medicine
DX: A41.9 Sepsis, unspecified organism (principal); L89.313 Pressure ulcer of right buttock, stage 3; G92.9 Unspecified toxic encephalopathy; L89.893 Pressure ulcer of other site, stage 3; R53.2 Functional quadriplegia; J90 Pleural effusion, not elsewhere classified; J98.11 Atelectasis; E87.2 Acidosis; R64 Cachexia; E03.9 Hypothyroidism, unspecified; F02.80 Dementia in other diseases classified elsewhere, unspecified severity, without behavioral disturbance, psychotic disturbance, mood disturbance, and anxiety; L98.429 Non-pressure chronic ulcer of back with unspecified severity; E78.5 Hyperlipidemia, unspecified; K21.9 Gastro-esophageal reflux disease without esophagitis; K56.41 Fecal impaction; F41.9 Anxiety disorder, unspecified; I10 Essential (primary) hypertension; Z74.01 Bed confinement status; Z99.3 Dependence on wheelchair; D72.829 Elevated white blood cell count, unspecified; G30.9 Alzheimer's disease, unspecified; Z68.24 Body mass index [BMI] 24.0-24.9, adult
CPT/HCPCS: 36415; 71045-TC-FY; 74018-TC-FY; 74177-TC; 80048; 80053; 81003; 82550; 82553; 82803; 82962; 83605; 84439; 84443; 84484; 85025; 85610; 85651; 85730; 86850; 86900; 86901; 87040; 87086; 87899; 93005; 93010; 97161-GP; 99285-25; C9803; Q9967; U0003; U0005

== ENCOUNTER 2021-10-20 18:31 | Inpatient (IN) | payer OTHER ==
[2021-10-20] MEDS ORDERED: VANCOMYCIN 1 GM in D5W (PRE-DOCKED) 1,000 MG/250 ML IVPB ONE (19:30)
[2021-10-20] MEDS ORDERED: PIPERACILLIN/TAZOB 4.5 GM 4.5 GM in DEXTROSE 5%-WATER 100 ML IVPB ONE (19:31)
[2021-10-20] MEDS ORDERED: PIPERACILLIN/TAZOB 4.5 GM 4.5 GM/100 ML BAG IVPB ONE (20:07)
[2021-10-20 20:28] LABS: HEMATOCRIT 30.5 % (35.4-49); MCH 28.5 pg (25.7-33.7); MCHC 32.8 g/dl (32.0-35.9); MEAN CELL VOLUME 87.1 fl (80-96); MEAN PLT VOLUME 8.2 fl (7.5-11.1); PLATELET COUNT 499 10^3/uL (134-434); RBC 3.51 M/mm3 (4.00-5.60); RDW 14.6 % (11.9-15.9); WHITE BLOOD COUNT 20.6 K/mm3 (4.0-10.0)
[2021-10-20 20:29] LABS: INR 1.21 (0.83-1.09)
[2021-10-20 20:32] LABS: ACTIVATED PTT 27.4 SECONDS (25.2-36.5)
[2021-10-20] MEDS ORDERED: VANCOMYCIN 1 GRAM (PRE-DOCKED) 1,000 MG/250 ML BAG IVPB ONE (20:35)
[2021-10-20 20:39] LABS: ALBUMIN 2.6 g/dl (3.4-5.0); BLOOD UREA NITROGEN 24.6 mg/dL (7-18); CALCIUM 8.5 mg/dL (8.5-10.1)
[2021-10-20 20:44] LABS: BILIRUBIN,TOTAL 0.2 mg/dL (0.2-1); TOT PROT 5.5 g/dl (6.4-8.2)
[2021-10-20 21:32] LABS: ANISOCYTOSIS 0; MACROCYTOSIS 0
[2021-10-20] MEDS ORDERED: SODIUM CHLORIDE 0.9% 500 ML INFUS.BAG IV ONE (22:58)
[2021-10-21] MEDS ORDERED: QUEtiapine FUMARATE 25 MG TABLET PO ONE (01:23)
[2021-10-21 07:05] LABS: HEMATOCRIT 26.5 % (35.4-49); HEMOGLOBIN 8.7 GM/dL (11.7-16.9); MCH 28.7 pg (25.7-33.7); MCHC 32.7 g/dl (32.0-35.9); MEAN CELL VOLUME 87.7 fl (80-96); MEAN PLT VOLUME 8.3 fl (7.5-11.1); PLATELET COUNT 430 10^3/uL (134-434); RBC 3.02 M/mm3 (4.00-5.60); WHITE BLOOD COUNT 18.7 K/mm3 (4.0-10.0)
[2021-10-21 07:28] LABS: CREATININE 0.9 mg/dL (0.55-1.3)
[2021-10-21] MEDS: LEVOTHYROXINE NA 75 MCG TABLET (FP) PO SCH (08:55)
[2021-10-21 09:04] LABS: ANISOCYTOSIS 0; MACROCYTOSIS 0
[2021-10-21] MEDS ORDERED: PIPERACILLIN/TAZOB 3.375 GM 3.375 GM in DEXTROSE 5%-WATER - 50 ML IVPB SCH ×2 (10:00→18:00)
[2021-10-21] MEDS ORDERED: PIPERACILLIN/TAZOBACTAM 3.375 GM VIAL IVPB ONE ×2 (11:00→16:42)
[2021-10-21] MEDS ORDERED: DEXTROSE 5%-WATER - 50 ML IVPB ONE ×2 (11:00→16:42)
[2021-10-21] MEDS: CYANOCOBALAMIN 1,000 MCG TABLET (FP) PO SCH (11:22)
[2021-10-21] MEDS: GLIMEPIRIDE 4 MG TABLET PO SCH (11:22)
[2021-10-21] MEDS: LISINOPRIL 10 MG TABLET PO SCH (11:22)
[2021-10-21] MEDS: THIAMINE HCL 100 MG TABLET (FP) PO SCH (11:22)
[2021-10-21] MEDS: DONEPEZIL HCL 10 MG TABLET (FP) PO SCH (11:24)
[2021-10-21] MEDS: PANTOPRAZOLE 40 MG TABLET PO SCH (11:24)
[2021-10-21] MEDS: COLLAGENASE CLOSTRIDIUM HIST. 30 GRAMS TUBE TP SCH (13:17)
[2021-10-21] MEDS: QUEtiapine FUMARATE 25 MG TABLET PO SCH ×2 (14:04→22:31)
[2021-10-21 14:25] VITALS: BMI 20.9
[2021-10-21] MEDS: PIPERACILLIN/TAZOB 3.375 GM 3.375 GM in DEXTROSE 5%-WATER - 50 ML IVPB SCH (18:30)
[2021-10-21] MEDS ORDERED: VANCOMYCIN/WATER FOR INJ (PEG) 750 MG/150 ML BAG IVPB SCH ×2 (20:00)
[2021-10-21] MEDS: MIRTAZAPINE 15 MG TABLET (FP) PO SCH (22:31)
[2021-10-21] MEDS: HEPARIN NA (PORCINE) 5,000 UNITS/ML 1ML VIAL SQ SCH (22:32)
[2021-10-22] MEDS ORDERED: DEXTROSE 5%-WATER - 50 ML IVPB ONE ×3 (01:59→17:20)
[2021-10-22] MEDS ORDERED: PIPERACILLIN/TAZOBACTAM 3.375 GM VIAL IVPB ONE ×3 (01:59→17:20)
[2021-10-22] MEDS: PIPERACILLIN/TAZOB 3.375 GM 3.375 GM in DEXTROSE 5%-WATER - 50 ML IVPB SCH ×3 (02:26→17:25)
[2021-10-22] MEDS: GLIMEPIRIDE 4 MG TABLET PO SCH (06:21)
[2021-10-22] MEDS: QUEtiapine FUMARATE 25 MG TABLET PO SCH ×3 (06:21→22:10)
[2021-10-22] MEDS: LEVOTHYROXINE NA 75 MCG TABLET (FP) PO SCH (06:21)
[2021-10-22] MEDS: DONEPEZIL HCL 10 MG TABLET (FP) PO SCH (09:51)
[2021-10-22] MEDS: THIAMINE HCL 100 MG TABLET (FP) PO SCH (09:51)
[2021-10-22] MEDS: HEPARIN NA (PORCINE) 5,000 UNITS/ML 1ML VIAL SQ SCH ×2 (09:51→22:11)
[2021-10-22] MEDS: COLLAGENASE CLOSTRIDIUM HIST. 30 GRAMS TUBE TP SCH (09:51)
[2021-10-22] MEDS: PANTOPRAZOLE 40 MG TABLET PO SCH (09:51)
[2021-10-22] MEDS: CYANOCOBALAMIN 1,000 MCG TABLET (FP) PO SCH (09:51)
[2021-10-22] MEDS: LISINOPRIL 10 MG TABLET PO SCH (09:51)
[2021-10-22 10:39] LABS: BASO % 0.6 % (0-2.0); EOS % 1.4 % (0-4.5); HEMATOCRIT 28.7 % (35.4-49); HEMOGLOBIN 9.7 GM/dL (11.7-16.9); LYMPH % 9.2 % (8-40); MCH 29.1 pg (25.7-33.7); MCHC 33.9 g/dl (32.0-35.9); MEAN CELL VOLUME 85.9 fl (80-96); MEAN PLT VOLUME 8.3 fl (7.5-11.1); NEUT % 81.8 % (42.8-82.8); PLATELET COUNT 562 10^3/uL (134-434); RBC 3.34 M/mm3 (4.00-5.60); RDW 14.1 % (11.9-15.9); WHITE BLOOD COUNT 19.4 K/mm3 (4.0-10.0)
[2021-10-22 10:44] LABS: CALCIUM 8.4 mg/dL (8.5-10.1)
[2021-10-22 10:45] LABS: ALBUMIN 2.3 g/dl (3.4-5.0); BLOOD UREA NITROGEN 17.6 mg/dL (7-18)
[2021-10-22 10:48] LABS: CREATININE 0.9 mg/dL (0.55-1.3)
[2021-10-22 10:50] LABS: BILIRUBIN,TOTAL 0.4 mg/dL (0.2-1); TOT PROT 5.5 g/dl (6.4-8.2)
[2021-10-22 11:31] LABS: ANISOCYTOSIS 0; HELMET CELLS 0; HOWELL-JOLLY BODIES 0; MACROCYTOSIS 0; OVALOCYTE 0; ROULEAU 0; SICKELED CELLS 0; TARGET CELLS 0; TEAR DROP CELLS 0; TOXIC GRANULATION 0
[2021-10-22] MEDS: AMINO ACIDS/PROTEIN HYDROLYS 30 ML LIQUID.PKT PO SCH (17:25)
[2021-10-22] MEDS: MIRTAZAPINE 15 MG TABLET (FP) PO SCH (22:10)
[2021-10-22] MEDS: ASCORBIC ACID 500 MG TABLET (FP) PO SCH (22:11)
[2021-10-23] MEDS ORDERED: PIPERACILLIN/TAZOBACTAM 3.375 GM VIAL IVPB ONE ×3 (00:53→17:07)
[2021-10-23] MEDS ORDERED: DEXTROSE 5%-WATER - 50 ML IVPB ONE ×3 (00:54→17:08)
[2021-10-23] MEDS: PIPERACILLIN/TAZOB 3.375 GM 3.375 GM in DEXTROSE 5%-WATER - 50 ML IVPB SCH ×3 (02:18→17:14)
[2021-10-23] MEDS: LEVOTHYROXINE NA 75 MCG TABLET (FP) PO SCH (06:36)
[2021-10-23] MEDS: QUEtiapine FUMARATE 25 MG TABLET PO SCH ×3 (06:36→22:39)
[2021-10-23] MEDS: GLIMEPIRIDE 4 MG TABLET PO SCH (06:36)
[2021-10-23] MEDS: AMINO ACIDS/PROTEIN HYDROLYS 30 ML LIQUID.PKT PO SCH ×2 (09:06→17:17)
[2021-10-23] MEDS: MULTIVITAMINS (DAILY MVI) TABLET (FP) PO SCH (09:07)
[2021-10-23] MEDS: CYANOCOBALAMIN 1,000 MCG TABLET (FP) PO SCH (09:07)
[2021-10-23] MEDS: ASCORBIC ACID 500 MG TABLET (FP) PO SCH ×2 (09:07→22:39)
[2021-10-23] MEDS: ZINC SULFATE 220 MG CAPSULE (FP) PO SCH (09:07)
[2021-10-23] MEDS: DONEPEZIL HCL 10 MG TABLET (FP) PO SCH (09:08)
[2021-10-23] MEDS: COLLAGENASE CLOSTRIDIUM HIST. 30 GRAMS TUBE TP SCH (09:08)
[2021-10-23] MEDS: PANTOPRAZOLE 40 MG TABLET PO SCH (09:08)
[2021-10-23] MEDS: THIAMINE HCL 100 MG TABLET (FP) PO SCH (09:08)
[2021-10-23] MEDS: LISINOPRIL 10 MG TABLET PO SCH (09:08)
[2021-10-23] MEDS: HEPARIN NA (PORCINE) 5,000 UNITS/ML 1ML VIAL SQ SCH ×2 (09:08→22:38)
[2021-10-23] MEDS ORDERED: VANCOMYCIN/WATER FOR INJ (PEG) 1,000 MG/200 ML BAG IVPB SCH (09:15)
[2021-10-23] MEDS: INSULIN SLIDING SCALE (NOVOLOG) 1 VIAL SQ SCH ×2 (17:16→22:38)
[2021-10-23] MEDS: MIRTAZAPINE 15 MG TABLET (FP) PO SCH (22:39)
[2021-10-24] MEDS ORDERED: DEXTROSE 5%-WATER - 50 ML IVPB ONE ×3 (00:20→17:01)
[2021-10-24] MEDS ORDERED: PIPERACILLIN/TAZOBACTAM 3.375 GM VIAL IVPB ONE ×3 (00:20→17:01)
[2021-10-24] MEDS: PIPERACILLIN/TAZOB 3.375 GM 3.375 GM in DEXTROSE 5%-WATER - 50 ML IVPB SCH ×3 (01:35→17:14)
[2021-10-24] MEDS: INSULIN SLIDING SCALE (NOVOLOG) 1 VIAL SQ SCH ×4 (06:05→22:35)
[2021-10-24] MEDS: LEVOTHYROXINE NA 75 MCG TABLET (FP) PO SCH (06:05)
[2021-10-24] MEDS: QUEtiapine FUMARATE 25 MG TABLET PO SCH ×3 (06:05→22:35)
[2021-10-24] MEDS: GLIMEPIRIDE 4 MG TABLET PO SCH (06:05)
[2021-10-24] MEDS: AMINO ACIDS/PROTEIN HYDROLYS 30 ML LIQUID.PKT PO SCH ×2 (07:50→17:15)
[2021-10-24 08:50] LABS: HEMATOCRIT 29.8 % (35.4-49); HEMOGLOBIN 9.8 GM/dL (11.7-16.9); MCH 28.4 pg (25.7-33.7); MCHC 32.9 g/dl (32.0-35.9); MEAN CELL VOLUME 86.3 fl (80-96); MEAN PLT VOLUME 7.8 fl (7.5-11.1); PLATELET COUNT 608 10^3/uL (134-434); RBC 3.45 M/mm3 (4.00-5.60); RDW 14.2 % (11.9-15.9); WHITE BLOOD COUNT 20.4 K/mm3 (4.0-10.0)
[2021-10-24 09:52] LABS: ERYTHROCYTE SEDIMENTATION RATE 79 mm/hr (0-20)
[2021-10-24] MEDS: LISINOPRIL 10 MG TABLET PO SCH (09:57)
[2021-10-24] MEDS: THIAMINE HCL 100 MG TABLET (FP) PO SCH (09:57)
[2021-10-24] MEDS: HEPARIN NA (PORCINE) 5,000 UNITS/ML 1ML VIAL SQ SCH ×2 (09:57→22:35)
[2021-10-24] MEDS: DONEPEZIL HCL 10 MG TABLET (FP) PO SCH (09:57)
[2021-10-24] MEDS: CYANOCOBALAMIN 1,000 MCG TABLET (FP) PO SCH (09:57)
[2021-10-24] MEDS: PANTOPRAZOLE 40 MG TABLET PO SCH (09:57)
[2021-10-24] MEDS: ZINC SULFATE 220 MG CAPSULE (FP) PO SCH (09:57)
[2021-10-24] MEDS: MULTIVITAMINS (DAILY MVI) TABLET (FP) PO SCH (09:57)
[2021-10-24] MEDS: ASCORBIC ACID 500 MG TABLET (FP) PO SCH ×2 (09:57→22:35)
[2021-10-24 10:18] LABS: ANISOCYTOSIS 1+; MACROCYTOSIS 0
[2021-10-24] MEDS: COLLAGENASE CLOSTRIDIUM HIST. 30 GRAMS TUBE TP SCH (11:05)
[2021-10-24] MEDS: VANCOMYCIN/WATER FOR INJ (PEG) 1,000 MG/200 ML BAG IVPB SCH (17:37)
[2021-10-24] MEDS: MIRTAZAPINE 15 MG TABLET (FP) PO SCH (22:35)
[2021-10-25] MEDS ORDERED: PIPERACILLIN/TAZOBACTAM 3.375 GM VIAL IVPB ONE ×3 (01:23→18:01)
[2021-10-25] MEDS ORDERED: DEXTROSE 5%-WATER - 50 ML IVPB ONE ×3 (01:23→18:01)
[2021-10-25] MEDS: PIPERACILLIN/TAZOB 3.375 GM 3.375 GM in DEXTROSE 5%-WATER - 50 ML IVPB SCH ×3 (01:28→18:05)
[2021-10-25] MEDS: QUEtiapine FUMARATE 25 MG TABLET PO SCH ×3 (06:52→21:31)
[2021-10-25] MEDS: LEVOTHYROXINE NA 75 MCG TABLET (FP) PO SCH (06:52)
[2021-10-25] MEDS: INSULIN SLIDING SCALE (NOVOLOG) 1 VIAL SQ SCH ×4 (06:52→21:32)
[2021-10-25] MEDS: GLIMEPIRIDE 4 MG TABLET PO SCH (06:52)
[2021-10-25 08:41] LABS: HEMATOCRIT 27.7 % (35.4-49); HEMOGLOBIN 9.3 GM/dL (11.7-16.9); MCH 28.7 pg (25.7-33.7); MCHC 33.5 g/dl (32.0-35.9); MEAN CELL VOLUME 85.6 fl (80-96); MEAN PLT VOLUME 7.5 fl (7.5-11.1); PLATELET COUNT 587 10^3/uL (134-434); RBC 3.24 M/mm3 (4.00-5.60); RDW 14.5 % (11.9-15.9); WHITE BLOOD COUNT 20.9 K/mm3 (4.0-10.0)
[2021-10-25] MEDS: AMINO ACIDS/PROTEIN HYDROLYS 30 ML LIQUID.PKT PO SCH ×2 (09:03→18:05)
[2021-10-25 09:06] LABS: CALCIUM 8.4 mg/dL (8.5-10.1)
[2021-10-25 09:07] LABS: ALBUMIN 2.1 g/dl (3.4-5.0); BLOOD UREA NITROGEN 27.4 mg/dL (7-18)
[2021-10-25] MEDS: MULTIVITAMINS (DAILY MVI) TABLET (FP) PO SCH (09:07)
[2021-10-25] MEDS: ZINC SULFATE 220 MG CAPSULE (FP) PO SCH (09:07)
[2021-10-25] MEDS: THIAMINE HCL 100 MG TABLET (FP) PO SCH (09:07)
[2021-10-25] MEDS: ASCORBIC ACID 500 MG TABLET (FP) PO SCH ×2 (09:07→21:31)
[2021-10-25] MEDS: LISINOPRIL 10 MG TABLET PO SCH (09:07)
[2021-10-25] MEDS: DONEPEZIL HCL 10 MG TABLET (FP) PO SCH (09:07)
[2021-10-25] MEDS: CYANOCOBALAMIN 1,000 MCG TABLET (FP) PO SCH (09:07)
[2021-10-25] MEDS: PANTOPRAZOLE 40 MG TABLET PO SCH (09:07)
[2021-10-25] MEDS: HEPARIN NA (PORCINE) 5,000 UNITS/ML 1ML VIAL SQ SCH ×2 (09:08→21:32)
[2021-10-25 09:11] LABS: BILIRUBIN,TOTAL 0.4 mg/dL (0.2-1); TOT PROT 5.2 g/dl (6.4-8.2)
[2021-10-25] MEDS: COLLAGENASE CLOSTRIDIUM HIST. 30 GRAMS TUBE TP SCH (09:11)
[2021-10-25 09:47] LABS: ANISOCYTOSIS 0; HELMET CELLS 0; HOWELL-JOLLY BODIES 0; MACROCYTOSIS 0; OVALOCYTE 0; ROULEAU 0; SICKELED CELLS 0; TARGET CELLS 0; TEAR DROP CELLS 0; TOXIC GRANULATION 0
[2021-10-25] MEDS: VANCOMYCIN/WATER FOR INJ (PEG) 1,000 MG/200 ML BAG IVPB SCH (19:02)
[2021-10-25] MEDS: MIRTAZAPINE 15 MG TABLET (FP) PO SCH (21:31)
[2021-10-26] MEDS ORDERED: PIPERACILLIN/TAZOBACTAM 3.375 GM VIAL IVPB ONE ×3 (01:17→16:57)
[2021-10-26] MEDS ORDERED: DEXTROSE 5%-WATER - 50 ML IVPB ONE ×3 (01:17→16:57)
[2021-10-26] MEDS: PIPERACILLIN/TAZOB 3.375 GM 3.375 GM in DEXTROSE 5%-WATER - 50 ML IVPB SCH ×3 (01:32→17:05)
[2021-10-26] MEDS: GLIMEPIRIDE 4 MG TABLET PO SCH (06:46)
[2021-10-26] MEDS: QUEtiapine FUMARATE 25 MG TABLET PO SCH ×3 (06:46→22:07)
[2021-10-26] MEDS: INSULIN SLIDING SCALE (NOVOLOG) 1 VIAL SQ SCH ×4 (06:46→22:07)
[2021-10-26] MEDS: LEVOTHYROXINE NA 75 MCG TABLET (FP) PO SCH (06:46)
[2021-10-26] MEDS: ZINC SULFATE 220 MG CAPSULE (FP) PO SCH (10:33)
[2021-10-26] MEDS: THIAMINE HCL 100 MG TABLET (FP) PO SCH (10:33)
[2021-10-26] MEDS: PANTOPRAZOLE 40 MG TABLET PO SCH (10:33)
[2021-10-26] MEDS: LISINOPRIL 10 MG TABLET PO SCH (10:33)
[2021-10-26] MEDS: CYANOCOBALAMIN 1,000 MCG TABLET (FP) PO SCH (10:33)
[2021-10-26] MEDS: DONEPEZIL HCL 10 MG TABLET (FP) PO SCH (10:33)
[2021-10-26] MEDS: MULTIVITAMINS (DAILY MVI) TABLET (FP) PO SCH (10:33)
[2021-10-26] MEDS: ASCORBIC ACID 500 MG TABLET (FP) PO SCH ×2 (10:33→22:06)
[2021-10-26] MEDS: HEPARIN NA (PORCINE) 5,000 UNITS/ML 1ML VIAL SQ SCH ×2 (10:34→22:07)
[2021-10-26] MEDS: AMINO ACIDS/PROTEIN HYDROLYS 30 ML LIQUID.PKT PO SCH ×2 (10:35→17:12)
[2021-10-26] MEDS: COLLAGENASE CLOSTRIDIUM HIST. 30 GRAMS TUBE TP SCH (10:47)
[2021-10-26] MEDS: VANCOMYCIN/WATER FOR INJ (PEG) 1,000 MG/200 ML BAG IVPB SCH (18:22)
[2021-10-26] MEDS: MIRTAZAPINE 15 MG TABLET (FP) PO SCH (22:07)
[2021-10-27] MEDS ORDERED: DEXTROSE 5%-WATER - 50 ML IVPB ONE ×3 (00:40→17:50)
[2021-10-27] MEDS ORDERED: PIPERACILLIN/TAZOBACTAM 3.375 GM VIAL IVPB ONE ×3 (00:40→17:50)
[2021-10-27] MEDS: PIPERACILLIN/TAZOB 3.375 GM 3.375 GM in DEXTROSE 5%-WATER - 50 ML IVPB SCH ×3 (01:59→19:27)
[2021-10-27] MEDS: INSULIN SLIDING SCALE (NOVOLOG) 1 VIAL SQ SCH ×4 (06:42→22:37)
[2021-10-27] MEDS: LEVOTHYROXINE NA 75 MCG TABLET (FP) PO SCH (06:43)
[2021-10-27] MEDS: QUEtiapine FUMARATE 25 MG TABLET PO SCH ×3 (06:43→22:36)
[2021-10-27] MEDS: GLIMEPIRIDE 4 MG TABLET PO SCH (06:43)
[2021-10-27 07:36] LABS: HEMATOCRIT 26.1 % (35.4-49); HEMOGLOBIN 8.8 GM/dL (11.7-16.9); MCH 29.1 pg (25.7-33.7); MCHC 33.9 g/dl (32.0-35.9); MEAN CELL VOLUME 85.8 fl (80-96); MEAN PLT VOLUME 7.5 fl (7.5-11.1); PLATELET COUNT 655 10^3/uL (134-434); RBC 3.04 M/mm3 (4.00-5.60); RDW 14.4 % (11.9-15.9); WHITE BLOOD COUNT 21.1 K/mm3 (4.0-10.0)
[2021-10-27 07:38] LABS: ALBUMIN 2.1 g/dl (3.4-5.0); BLOOD UREA NITROGEN 35.7 mg/dL (7-18); CALCIUM 8.4 mg/dL (8.5-10.1)
[2021-10-27 07:41] LABS: CREATININE 1.1 mg/dL (0.55-1.3)
[2021-10-27 07:42] LABS: BILIRUBIN,TOTAL 0.6 mg/dL (0.2-1)
[2021-10-27 07:43] LABS: TOT PROT 5.2 g/dl (6.4-8.2)
[2021-10-27 09:33] LABS: ANISOCYTOSIS 1+; MACROCYTOSIS 0; PLATELET ESTIMATE INCREASED
[2021-10-27] MEDS: DONEPEZIL HCL 10 MG TABLET (FP) PO SCH (09:44)
[2021-10-27] MEDS: CYANOCOBALAMIN 1,000 MCG TABLET (FP) PO SCH (09:45)
[2021-10-27] MEDS: THIAMINE HCL 100 MG TABLET (FP) PO SCH (09:45)
[2021-10-27] MEDS: PANTOPRAZOLE 40 MG TABLET PO SCH (09:45)
[2021-10-27] MEDS: MULTIVITAMINS (DAILY MVI) TABLET (FP) PO SCH (09:45)
[2021-10-27] MEDS: ZINC SULFATE 220 MG CAPSULE (FP) PO SCH (09:45)
[2021-10-27] MEDS: LISINOPRIL 10 MG TABLET PO SCH (09:45)
[2021-10-27] MEDS: ASCORBIC ACID 500 MG TABLET (FP) PO SCH ×2 (09:45→22:36)
[2021-10-27] MEDS: AMINO ACIDS/PROTEIN HYDROLYS 30 ML LIQUID.PKT PO SCH ×2 (09:45→17:01)
[2021-10-27] MEDS: HEPARIN NA (PORCINE) 5,000 UNITS/ML 1ML VIAL SQ SCH ×2 (09:45→22:35)
[2021-10-27] MEDS: COLLAGENASE CLOSTRIDIUM HIST. 30 GRAMS TUBE TP SCH (09:46)
[2021-10-27] MEDS: VANCOMYCIN/WATER FOR INJ (PEG) 1,000 MG/200 ML BAG IVPB SCH (17:01)
[2021-10-27] MEDS: MIRTAZAPINE 15 MG TABLET (FP) PO SCH (22:36)
[2021-10-28] MEDS ORDERED: PIPERACILLIN/TAZOBACTAM 3.375 GM VIAL IVPB ONE ×3 (02:04→18:15)
[2021-10-28] MEDS ORDERED: DEXTROSE 5%-WATER - 50 ML IVPB ONE ×3 (02:05→18:15)
[2021-10-28] MEDS: PIPERACILLIN/TAZOB 3.375 GM 3.375 GM in DEXTROSE 5%-WATER - 50 ML IVPB SCH ×3 (02:12→18:25)
[2021-10-28] MEDS: QUEtiapine FUMARATE 25 MG TABLET PO SCH ×3 (05:40→22:06)
[2021-10-28] MEDS: GLIMEPIRIDE 4 MG TABLET PO SCH (06:11)
[2021-10-28] MEDS: LEVOTHYROXINE NA 75 MCG TABLET (FP) PO SCH (06:11)
[2021-10-28] MEDS: INSULIN SLIDING SCALE (NOVOLOG) 1 VIAL SQ SCH ×4 (06:11→22:04)
[2021-10-28] MEDS: ASCORBIC ACID 500 MG TABLET (FP) PO SCH ×2 (09:48→22:04)
[2021-10-28] MEDS: ZINC SULFATE 220 MG CAPSULE (FP) PO SCH (09:48)
[2021-10-28] MEDS: CYANOCOBALAMIN 1,000 MCG TABLET (FP) PO SCH (09:48)
[2021-10-28] MEDS: THIAMINE HCL 100 MG TABLET (FP) PO SCH (09:48)
[2021-10-28] MEDS: HEPARIN NA (PORCINE) 5,000 UNITS/ML 1ML VIAL SQ SCH (09:48)
[2021-10-28] MEDS: MULTIVITAMINS (DAILY MVI) TABLET (FP) PO SCH (09:48)
[2021-10-28] MEDS: DONEPEZIL HCL 10 MG TABLET (FP) PO SCH (09:48)
[2021-10-28] MEDS: PANTOPRAZOLE 40 MG TABLET PO SCH (09:48)
[2021-10-28] MEDS: AMINO ACIDS/PROTEIN HYDROLYS 30 ML LIQUID.PKT PO SCH ×2 (09:48→16:51)
[2021-10-28] MEDS: LISINOPRIL 10 MG TABLET PO SCH (09:49)
[2021-10-28] MEDS: COLLAGENASE CLOSTRIDIUM HIST. 30 GRAMS TUBE TP SCH (09:49)
[2021-10-28] MEDS: VANCOMYCIN/WATER FOR INJ (PEG) 1,000 MG/200 ML BAG IVPB SCH (16:50)
[2021-10-28] MEDS: MIRTAZAPINE 15 MG TABLET (FP) PO SCH (22:04)
[2021-10-29] MEDS ORDERED: PIPERACILLIN/TAZOBACTAM 3.375 GM VIAL IVPB ONE ×3 (01:22→16:23)
[2021-10-29] MEDS ORDERED: DEXTROSE 5%-WATER - 50 ML IVPB ONE ×3 (01:23→16:23)
[2021-10-29] MEDS: PIPERACILLIN/TAZOB 3.375 GM 3.375 GM in DEXTROSE 5%-WATER - 50 ML IVPB SCH ×3 (01:31→17:00)
[2021-10-29] MEDS: GLIMEPIRIDE 4 MG TABLET PO SCH (06:21)
[2021-10-29] MEDS: QUEtiapine FUMARATE 25 MG TABLET PO SCH ×3 (06:21→21:59)
[2021-10-29] MEDS: LEVOTHYROXINE NA 75 MCG TABLET (FP) PO SCH (06:21)
[2021-10-29] MEDS: INSULIN SLIDING SCALE (NOVOLOG) 1 VIAL SQ SCH ×4 (06:22→21:57)
[2021-10-29] MEDS: AMINO ACIDS/PROTEIN HYDROLYS 30 ML LIQUID.PKT PO SCH ×2 (09:13→17:50)
[2021-10-29] MEDS: CYANOCOBALAMIN 1,000 MCG TABLET (FP) PO SCH (09:14)
[2021-10-29] MEDS: DONEPEZIL HCL 10 MG TABLET (FP) PO SCH (09:14)
[2021-10-29] MEDS: PANTOPRAZOLE 40 MG TABLET PO SCH (09:14)
[2021-10-29] MEDS: ASCORBIC ACID 500 MG TABLET (FP) PO SCH ×2 (09:14→21:57)
[2021-10-29] MEDS: THIAMINE HCL 100 MG TABLET (FP) PO SCH (09:14)
[2021-10-29] MEDS: MULTIVITAMINS (DAILY MVI) TABLET (FP) PO SCH (09:14)
[2021-10-29] MEDS: ZINC SULFATE 220 MG CAPSULE (FP) PO SCH (09:14)
[2021-10-29] MEDS: COLLAGENASE CLOSTRIDIUM HIST. 30 GRAMS TUBE TP SCH (10:02)
[2021-10-29] MEDS: LISINOPRIL 10 MG TABLET PO SCH (10:18)
[2021-10-29] MEDS: VANCOMYCIN/WATER FOR INJ (PEG) 1,000 MG/200 ML BAG IVPB SCH (18:08)
[2021-10-29] MEDS: oxyCODONE HCL 5 MG TABLET PO PRN (21:57)
[2021-10-29] MEDS: MIRTAZAPINE 15 MG TABLET (FP) PO SCH (21:59)
[2021-10-30] MEDS ORDERED: DEXTROSE 5%-WATER - 50 ML IVPB ONE ×3 (00:55→16:30)
[2021-10-30] MEDS ORDERED: PIPERACILLIN/TAZOBACTAM 3.375 GM VIAL IVPB ONE ×3 (00:55→16:30)
[2021-10-30] MEDS: PIPERACILLIN/TAZOB 3.375 GM 3.375 GM in DEXTROSE 5%-WATER - 50 ML IVPB SCH ×3 (01:19→17:00)
[2021-10-30] MEDS: QUEtiapine FUMARATE 25 MG TABLET PO SCH ×3 (06:28→21:26)
[2021-10-30] MEDS: INSULIN SLIDING SCALE (NOVOLOG) 1 VIAL SQ SCH ×4 (06:29→21:26)
[2021-10-30] MEDS: LEVOTHYROXINE NA 75 MCG TABLET (FP) PO SCH (06:29)
[2021-10-30] MEDS: GLIMEPIRIDE 4 MG TABLET PO SCH (06:29)
[2021-10-30] MEDS: oxyCODONE HCL 5 MG TABLET PO PRN (09:03)
[2021-10-30] MEDS: PANTOPRAZOLE 40 MG TABLET PO SCH (09:06)
[2021-10-30] MEDS: THIAMINE HCL 100 MG TABLET (FP) PO SCH (09:06)
[2021-10-30] MEDS: ASCORBIC ACID 500 MG TABLET (FP) PO SCH ×2 (09:06→21:26)
[2021-10-30] MEDS: DONEPEZIL HCL 10 MG TABLET (FP) PO SCH (09:06)
[2021-10-30] MEDS: LISINOPRIL 10 MG TABLET PO SCH (09:06)
[2021-10-30] MEDS: ZINC SULFATE 220 MG CAPSULE (FP) PO SCH (09:06)
[2021-10-30] MEDS: CYANOCOBALAMIN 1,000 MCG TABLET (FP) PO SCH (09:06)
[2021-10-30] MEDS: MULTIVITAMINS (DAILY MVI) TABLET (FP) PO SCH (09:06)
[2021-10-30] MEDS: AMINO ACIDS/PROTEIN HYDROLYS 30 ML LIQUID.PKT PO SCH ×2 (09:07→16:53)
[2021-10-30 09:32] LABS: HEMATOCRIT 26.5 % (35.4-49); HEMOGLOBIN 8.8 GM/dL (11.7-16.9); MCH 28.7 pg (25.7-33.7); MCHC 33.2 g/dl (32.0-35.9); MEAN CELL VOLUME 86.3 fl (80-96); MEAN PLT VOLUME 7.6 fl (7.5-11.1); PLATELET COUNT 623 10^3/uL (134-434); RBC 3.08 M/mm3 (4.00-5.60); WHITE BLOOD COUNT 22.4 K/mm3 (4.0-10.0)
[2021-10-30 10:21] LABS: ANISOCYTOSIS 0; MACROCYTOSIS 0; PLATELET ESTIMATE INCREASED
[2021-10-30] MEDS: COLLAGENASE CLOSTRIDIUM HIST. 30 GRAMS TUBE TP SCH (11:51)
[2021-10-30] MEDS: VANCOMYCIN/WATER FOR INJ (PEG) 1,000 MG/200 ML BAG IVPB SCH (17:52)
[2021-10-30] MEDS: MIRTAZAPINE 15 MG TABLET (FP) PO SCH (21:26)
[2021-10-30] MEDS ORDERED: INSULIN (LEVEMIR) 100 UNITS/ML UNITS SQ SCH (22:00)
[2021-10-31] MEDS ORDERED: DEXTROSE 5%-WATER - 50 ML IVPB ONE ×3 (00:43→16:52)
[2021-10-31] MEDS ORDERED: PIPERACILLIN/TAZOBACTAM 3.375 GM VIAL IVPB ONE ×3 (00:43→16:52)
[2021-10-31] MEDS: PIPERACILLIN/TAZOB 3.375 GM 3.375 GM in DEXTROSE 5%-WATER - 50 ML IVPB SCH ×3 (01:04→17:07)
[2021-10-31] MEDS: oxyCODONE HCL 5 MG TABLET PO PRN (04:29)
[2021-10-31] MEDS ORDERED: DEXTROSE 50%-WATER - 25 GM/50 ML VIAL IVPUSH ONE (05:59)
[2021-10-31] MEDS: QUEtiapine FUMARATE 25 MG TABLET PO SCH ×3 (06:28→22:14)
[2021-10-31] MEDS: LEVOTHYROXINE NA 75 MCG TABLET (FP) PO SCH (06:28)
[2021-10-31] MEDS: INSULIN SLIDING SCALE (NOVOLOG) 1 VIAL SQ SCH ×4 (06:28→22:13)
[2021-10-31] MEDS: THIAMINE HCL 100 MG TABLET (FP) PO SCH (09:43)
[2021-10-31] MEDS: ASCORBIC ACID 500 MG TABLET (FP) PO SCH ×2 (09:43→22:13)
[2021-10-31] MEDS: ZINC SULFATE 220 MG CAPSULE (FP) PO SCH (09:43)
[2021-10-31] MEDS: LISINOPRIL 10 MG TABLET PO SCH (09:43)
[2021-10-31] MEDS: AMINO ACIDS/PROTEIN HYDROLYS 30 ML LIQUID.PKT PO SCH ×2 (09:43→17:07)
[2021-10-31] MEDS: MULTIVITAMINS (DAILY MVI) TABLET (FP) PO SCH (09:43)
[2021-10-31] MEDS: CYANOCOBALAMIN 1,000 MCG TABLET (FP) PO SCH (09:43)
[2021-10-31] MEDS: PANTOPRAZOLE 40 MG TABLET PO SCH ×2 (09:44→10:43)
[2021-10-31] MEDS: DONEPEZIL HCL 10 MG TABLET (FP) PO SCH (09:44)
[2021-10-31] MEDS: COLLAGENASE CLOSTRIDIUM HIST. 30 GRAMS TUBE TP SCH (09:44)
[2021-10-31] MEDS: MIRTAZAPINE 15 MG TABLET (FP) PO SCH (22:13)
[2021-10-31] MEDS: INSULIN (LEVEMIR) 100 UNITS/ML UNITS SQ SCH (22:13)
[2021-11-01] MEDS ORDERED: PIPERACILLIN/TAZOBACTAM 3.375 GM VIAL IVPB ONE ×3 (01:02→17:16)
[2021-11-01] MEDS ORDERED: DEXTROSE 5%-WATER - 50 ML IVPB ONE ×3 (01:03→17:16)
[2021-11-01] MEDS: PIPERACILLIN/TAZOB 3.375 GM 3.375 GM in DEXTROSE 5%-WATER - 50 ML IVPB SCH ×3 (02:03→17:18)
[2021-11-01] MEDS: INSULIN SLIDING SCALE (NOVOLOG) 1 VIAL SQ SCH ×4 (06:01→21:30)
[2021-11-01] MEDS: QUEtiapine FUMARATE 25 MG TABLET PO SCH ×3 (06:02→21:24)
[2021-11-01] MEDS: LEVOTHYROXINE NA 75 MCG TABLET (FP) PO SCH (06:02)
[2021-11-01] MEDS: AMINO ACIDS/PROTEIN HYDROLYS 30 ML LIQUID.PKT PO SCH ×3 (08:39→17:17)
[2021-11-01 09:15] LABS: HEMATOCRIT 27.8 % (35.4-49); MCH 28.1 pg (25.7-33.7); MCHC 32.4 g/dl (32.0-35.9); MEAN CELL VOLUME 86.7 fl (80-96); MEAN PLT VOLUME 7.9 fl (7.5-11.1); PLATELET COUNT 593 10^3/uL (134-434); WHITE BLOOD COUNT 19.7 K/mm3 (4.0-10.0)
[2021-11-01 09:53] LABS: CALCIUM 8.7 mg/dL (8.5-10.1)
[2021-11-01 09:54] LABS: ALBUMIN 2.4 g/dl (3.4-5.0); BLOOD UREA NITROGEN 27.3 mg/dL (7-18)
[2021-11-01 09:57] LABS: BILIRUBIN,TOTAL 0.4 mg/dL (0.2-1); CREATININE 0.8 mg/dL (0.55-1.3); TOT PROT 5.4 g/dl (6.4-8.2)
[2021-11-01] MEDS: LISINOPRIL 10 MG TABLET PO SCH (10:06)
[2021-11-01] MEDS: CYANOCOBALAMIN 1,000 MCG TABLET (FP) PO SCH (10:06)
[2021-11-01] MEDS: DONEPEZIL HCL 10 MG TABLET (FP) PO SCH (10:06)
[2021-11-01] MEDS: PANTOPRAZOLE 40 MG TABLET PO SCH (10:06)
[2021-11-01] MEDS: MULTIVITAMINS (DAILY MVI) TABLET (FP) PO SCH (10:06)
[2021-11-01] MEDS: ASCORBIC ACID 500 MG TABLET (FP) PO SCH ×2 (10:06→21:24)
[2021-11-01] MEDS: THIAMINE HCL 100 MG TABLET (FP) PO SCH (10:06)
[2021-11-01] MEDS: INSULIN (LEVEMIR) 100 UNITS/ML UNITS SQ SCH ×2 (10:07→21:31)
[2021-11-01] MEDS: ZINC SULFATE 220 MG CAPSULE (FP) PO SCH (10:07)
[2021-11-01] MEDS: COLLAGENASE CLOSTRIDIUM HIST. 30 GRAMS TUBE TP SCH (10:37)
[2021-11-01 10:49] LABS: ERYTHROCYTE SEDIMENTATION RATE 109 mm/hr (0-20)
[2021-11-01 11:27] LABS: ANISOCYTOSIS 0; MACROCYTOSIS 0
[2021-11-01] MEDS: oxyCODONE HCL 5 MG TABLET PO PRN (15:45)
[2021-11-01] MEDS: MIRTAZAPINE 15 MG TABLET (FP) PO SCH (21:24)
[2021-11-02] MEDS ORDERED: PIPERACILLIN/TAZOBACTAM 3.375 GM VIAL IVPB ONE ×3 (01:00→17:20)
[2021-11-02] MEDS ORDERED: DEXTROSE 5%-WATER - 50 ML IVPB ONE ×3 (01:01→17:20)
[2021-11-02] MEDS: PIPERACILLIN/TAZOB 3.375 GM 3.375 GM in DEXTROSE 5%-WATER - 50 ML IVPB SCH ×3 (01:44→17:24)
[2021-11-02] MEDS: QUEtiapine FUMARATE 25 MG TABLET PO SCH ×3 (05:41→22:22)
[2021-11-02] MEDS: LEVOTHYROXINE NA 75 MCG TABLET (FP) PO SCH (06:02)
[2021-11-02] MEDS: INSULIN SLIDING SCALE (NOVOLOG) 1 VIAL SQ SCH ×4 (06:02→22:21)
[2021-11-02 08:31] LABS: HEMATOCRIT 25.2 % (35.4-49); HEMOGLOBIN 8.3 GM/dL (11.7-16.9); MCH 28.3 pg (25.7-33.7); MCHC 32.8 g/dl (32.0-35.9); MEAN CELL VOLUME 86.2 fl (80-96); MEAN PLT VOLUME 7.5 fl (7.5-11.1); PLATELET COUNT 551 10^3/uL (134-434); RBC 2.92 M/mm3 (4.00-5.60); RDW 15.1 % (11.9-15.9); WHITE BLOOD COUNT 20.3 K/mm3 (4.0-10.0)
[2021-11-02 08:50] LABS: ALBUMIN 2.3 g/dl (3.4-5.0); BLOOD UREA NITROGEN 36.5 mg/dL (7-18); CALCIUM 8.7 mg/dL (8.5-10.1)
[2021-11-02 08:54] LABS: CREATININE 0.9 mg/dL (0.55-1.3); TOT PROT 5.1 g/dl (6.4-8.2)
[2021-11-02 08:56] LABS: BILIRUBIN,TOTAL 0.3 mg/dL (0.2-1)
[2021-11-02 10:05] LABS: ANISOCYTOSIS 0; MACROCYTOSIS 0
[2021-11-02] MEDS: LISINOPRIL 10 MG TABLET PO SCH (11:51)
[2021-11-02] MEDS: MULTIVITAMINS (DAILY MVI) TABLET (FP) PO SCH (11:51)
[2021-11-02] MEDS: DONEPEZIL HCL 10 MG TABLET (FP) PO SCH (11:51)
[2021-11-02] MEDS: ASCORBIC ACID 500 MG TABLET (FP) PO SCH ×2 (11:51→22:22)
[2021-11-02] MEDS: ZINC SULFATE 220 MG CAPSULE (FP) PO SCH (11:51)
[2021-11-02] MEDS: AMINO ACIDS/PROTEIN HYDROLYS 30 ML LIQUID.PKT PO SCH ×3 (11:52→17:24)
[2021-11-02] MEDS: PANTOPRAZOLE 40 MG TABLET PO SCH (11:52)
[2021-11-02] MEDS: THIAMINE HCL 100 MG TABLET (FP) PO SCH (11:52)
[2021-11-02] MEDS: CYANOCOBALAMIN 1,000 MCG TABLET (FP) PO SCH (11:52)
[2021-11-02] MEDS: COLLAGENASE CLOSTRIDIUM HIST. 30 GRAMS TUBE TP SCH (11:52)
[2021-11-02] MEDS: INSULIN (LEVEMIR) 100 UNITS/ML UNITS SQ SCH ×2 (11:52→22:21)
[2021-11-02 18:08] LABS: HIV INTERPRETATION NEGATIVE (NEGATIVE)
[2021-11-02] MEDS: MIRTAZAPINE 15 MG TABLET (FP) PO SCH (22:22)
[2021-11-03] MEDS ORDERED: PIPERACILLIN/TAZOBACTAM 3.375 GM VIAL IVPB ONE ×2 (00:51→09:37)
[2021-11-03] MEDS ORDERED: DEXTROSE 5%-WATER - 50 ML IVPB ONE ×2 (00:51→09:37)
[2021-11-03] MEDS: PIPERACILLIN/TAZOB 3.375 GM 3.375 GM in DEXTROSE 5%-WATER - 50 ML IVPB SCH ×2 (01:15→09:46)
[2021-11-03] MEDS: INSULIN SLIDING SCALE (NOVOLOG) 1 VIAL SQ SCH ×4 (06:12→21:32)
[2021-11-03] MEDS: QUEtiapine FUMARATE 25 MG TABLET PO SCH ×3 (06:12→21:26)
[2021-11-03] MEDS: oxyCODONE HCL 5 MG TABLET PO PRN (06:12)
[2021-11-03] MEDS: LEVOTHYROXINE NA 75 MCG TABLET (FP) PO SCH (06:12)
[2021-11-03] MEDS: AMINO ACIDS/PROTEIN HYDROLYS 30 ML LIQUID.PKT PO SCH ×3 (09:39→18:55)
[2021-11-03] MEDS: LISINOPRIL 10 MG TABLET PO SCH (09:40)
[2021-11-03] MEDS: ZINC SULFATE 220 MG CAPSULE (FP) PO SCH ×2 (09:44→09:56)
[2021-11-03] MEDS: MULTIVITAMINS (DAILY MVI) TABLET (FP) PO SCH ×2 (09:44→09:56)
[2021-11-03] MEDS: CYANOCOBALAMIN 1,000 MCG TABLET (FP) PO SCH ×2 (09:44→09:56)
[2021-11-03] MEDS: ASCORBIC ACID 500 MG TABLET (FP) PO SCH ×3 (09:44→21:26)
[2021-11-03] MEDS: THIAMINE HCL 100 MG TABLET (FP) PO SCH (09:44)
[2021-11-03] MEDS: PANTOPRAZOLE 40 MG TABLET PO SCH (09:44)
[2021-11-03] MEDS: COLLAGENASE CLOSTRIDIUM HIST. 30 GRAMS TUBE TP SCH (09:46)
[2021-11-03] MEDS: INSULIN (LEVEMIR) 100 UNITS/ML UNITS SQ SCH ×2 (09:46→21:31)
[2021-11-03] MEDS: DONEPEZIL HCL 10 MG TABLET (FP) PO SCH ×2 (09:46→09:56)
[2021-11-03] MEDS ORDERED: HEPARIN NA (PORCINE) 5,000 UNITS/ML 1ML VIAL ONE ×3 (10:43→16:47)
[2021-11-03] MEDS ORDERED: LIDOCAINE HCL 1%, 10 MG/ML (20ML VIAL) ONE ×2 (10:43→13:44)
[2021-11-03] MEDS ORDERED: DEXTROSE 5%-0.45% SALINE 1,000 ML IV SCH ×2 (11:00)
[2021-11-03] MEDS ORDERED: LIDOCAINE HCL 1%, 10 MG/ML (20ML VIAL) NR ONE ×2 (13:50→16:27)
[2021-11-03] MEDS ORDERED: HEPARIN NA (PORCINE) 5,000 UNITS/ML 1ML VIAL SQ ONE ×2 (13:53→16:33)
[2021-11-03] MEDS ORDERED: ceFAZolin SODIUM 1 GM VIAL IVPB ONE (13:53)
[2021-11-03] MEDS ORDERED: AMINO ACIDS/PROTEIN HYDROLYS 30 ML LIQUID.PKT PO SCH (17:30)
[2021-11-03] MEDS: DEXTROSE 5%-0.45% SALINE 1,000 ML IV SCH (18:54)
[2021-11-03] MEDS: MIRTAZAPINE 15 MG TABLET (FP) PO SCH (21:26)
[2021-11-04] MEDS: oxyCODONE HCL 5 MG TABLET PO PRN (00:46)
[2021-11-04] MEDS: LEVOTHYROXINE NA 75 MCG TABLET (FP) PO SCH (06:01)
[2021-11-04] MEDS: QUEtiapine FUMARATE 25 MG TABLET PO SCH ×3 (06:01→21:28)
[2021-11-04] MEDS: INSULIN SLIDING SCALE (NOVOLOG) 1 VIAL SQ SCH ×4 (06:01→21:30)
[2021-11-04] MEDS: AMINO ACIDS/PROTEIN HYDROLYS 30 ML LIQUID.PKT PO SCH ×2 (08:35→17:11)
[2021-11-04] MEDS: CYANOCOBALAMIN 1,000 MCG TABLET (FP) PO SCH (09:34)
[2021-11-04] MEDS: ZINC SULFATE 220 MG CAPSULE (FP) PO SCH (09:34)
[2021-11-04] MEDS: MULTIVITAMINS (DAILY MVI) TABLET (FP) PO SCH (09:34)
[2021-11-04] MEDS: CLOPIDOGREL BISULFATE 75 MG TABLET (FP) PO SCH (09:34)
[2021-11-04] MEDS: THIAMINE HCL 100 MG TABLET (FP) PO SCH (09:35)
[2021-11-04] MEDS: DONEPEZIL HCL 10 MG TABLET (FP) PO SCH (09:35)
[2021-11-04] MEDS: INSULIN (LEVEMIR) 100 UNITS/ML UNITS SQ SCH ×2 (09:35→21:29)
[2021-11-04] MEDS: LISINOPRIL 10 MG TABLET PO SCH (09:35)
[2021-11-04] MEDS: PANTOPRAZOLE 40 MG TABLET PO SCH (09:35)
[2021-11-04] MEDS: ASCORBIC ACID 500 MG TABLET (FP) PO SCH ×2 (09:35→21:28)
[2021-11-04] MEDS: DEXTROSE 5%-0.45% SALINE 1,000 ML IV SCH ×2 (10:06→21:31)
[2021-11-04] MEDS: COLLAGENASE CLOSTRIDIUM HIST. 30 GRAMS TUBE TP SCH (10:47)
[2021-11-04] MEDS: MIRTAZAPINE 15 MG TABLET (FP) PO SCH (21:28)
[2021-11-05 01:06] LABS: FIBROSIS SCORE. 0.05 (0.00-0.21); HCV ALPHA 2 MACRO CHART 89 mg/dL (110-276); NECRO.INFLAM ACT.SCORE 0.24 (0.00-0.17); NECROINFLAM. ACTIVITY GRADE A0-A1 (.)
[2021-11-05] MEDS: LEVOTHYROXINE NA 75 MCG TABLET (FP) PO SCH (06:00)
[2021-11-05] MEDS: QUEtiapine FUMARATE 25 MG TABLET PO SCH ×3 (06:00→22:02)
[2021-11-05] MEDS: INSULIN SLIDING SCALE (NOVOLOG) 1 VIAL SQ SCH ×4 (06:00→22:03)
[2021-11-05] MEDS: AMINO ACIDS/PROTEIN HYDROLYS 30 ML LIQUID.PKT PO SCH ×2 (09:49→16:59)
[2021-11-05] MEDS: THIAMINE HCL 100 MG TABLET (FP) PO SCH (09:50)
[2021-11-05] MEDS: CYANOCOBALAMIN 1,000 MCG TABLET (FP) PO SCH (09:50)
[2021-11-05] MEDS: MULTIVITAMINS (DAILY MVI) TABLET (FP) PO SCH (09:50)
[2021-11-05] MEDS: ASCORBIC ACID 500 MG TABLET (FP) PO SCH ×2 (09:50→22:02)
[2021-11-05] MEDS: ZINC SULFATE 220 MG CAPSULE (FP) PO SCH (09:50)
[2021-11-05] MEDS: DONEPEZIL HCL 10 MG TABLET (FP) PO SCH (09:50)
[2021-11-05] MEDS: LISINOPRIL 10 MG TABLET PO SCH (09:50)
[2021-11-05] MEDS: CLOPIDOGREL BISULFATE 75 MG TABLET (FP) PO SCH (09:50)
[2021-11-05] MEDS: PANTOPRAZOLE 40 MG TABLET PO SCH (09:50)
[2021-11-05] MEDS: INSULIN (LEVEMIR) 100 UNITS/ML UNITS SQ SCH ×2 (09:50→22:02)
[2021-11-05] MEDS: COLLAGENASE CLOSTRIDIUM HIST. 30 GRAMS TUBE TP SCH (10:00)
[2021-11-05 11:21] LABS: HEMATOCRIT 22.7 % (35.4-49); HEMOGLOBIN 7.7 GM/dL (11.7-16.9); MCH 28.7 pg (25.7-33.7); MCHC 33.7 g/dl (32.0-35.9); MEAN PLT VOLUME 7.6 fl (7.5-11.1); PLATELET COUNT 459 10^3/uL (134-434); RBC 2.67 M/mm3 (4.00-5.60); RDW 14.5 % (11.9-15.9); WHITE BLOOD COUNT 15.1 K/mm3 (4.0-10.0)
[2021-11-05 11:40] LABS: CALCIUM 8.1 mg/dL (8.5-10.1)
[2021-11-05 11:41] LABS: ALBUMIN 2.2 g/dl (3.4-5.0); BLOOD UREA NITROGEN 22.6 mg/dL (7-18)
[2021-11-05 11:44] LABS: CREATININE 0.8 mg/dL (0.55-1.3)
[2021-11-05 11:46] LABS: BILIRUBIN,TOTAL 0.2 mg/dL (0.2-1)
[2021-11-05 12:08] LABS: ANISOCYTOSIS 1+; MACROCYTOSIS 1+
[2021-11-05] MEDS ORDERED: IRON SUCROSE INJECTION 200 MG in SODIUM CHLORIDE 90 ML IVPB ONE (13:15)
[2021-11-05] MEDS: MIRTAZAPINE 15 MG TABLET (FP) PO SCH (22:02)
[2021-11-06] MEDS: INSULIN SLIDING SCALE (NOVOLOG) 1 VIAL SQ SCH ×4 (06:24→21:45)
[2021-11-06] MEDS: LEVOTHYROXINE NA 75 MCG TABLET (FP) PO SCH (06:24)
[2021-11-06] MEDS: QUEtiapine FUMARATE 25 MG TABLET PO SCH ×3 (06:24→21:14)
[2021-11-06 10:28] LABS: HEMATOCRIT 23.3 % (35.4-49); HEMOGLOBIN 7.5 GM/dL (11.7-16.9); MCH 27.6 pg (25.7-33.7); MCHC 32.1 g/dl (32.0-35.9); MEAN CELL VOLUME 86.1 fl (80-96); MEAN PLT VOLUME 8.1 fl (7.5-11.1); PLATELET COUNT 461 10^3/uL (134-434); RBC 2.71 M/mm3 (4.00-5.60); RDW 14.4 % (11.9-15.9); WHITE BLOOD COUNT 16.1 K/mm3 (4.0-10.0)
[2021-11-06] MEDS: LISINOPRIL 10 MG TABLET PO SCH ×2 (11:00→11:51)
[2021-11-06] MEDS: DONEPEZIL HCL 10 MG TABLET (FP) PO SCH (11:49)
[2021-11-06] MEDS: THIAMINE HCL 100 MG TABLET (FP) PO SCH (11:49)
[2021-11-06] MEDS: CLOPIDOGREL BISULFATE 75 MG TABLET (FP) PO SCH (11:49)
[2021-11-06] MEDS: ASCORBIC ACID 500 MG TABLET (FP) PO SCH ×2 (11:49→21:14)
[2021-11-06] MEDS: INSULIN (LEVEMIR) 100 UNITS/ML UNITS SQ SCH ×2 (11:50→21:20)
[2021-11-06] MEDS: AMINO ACIDS/PROTEIN HYDROLYS 30 ML LIQUID.PKT PO SCH ×2 (11:50→17:32)
[2021-11-06] MEDS: MULTIVITAMINS (DAILY MVI) TABLET (FP) PO SCH (11:50)
[2021-11-06] MEDS: PANTOPRAZOLE 40 MG TABLET PO SCH (11:50)
[2021-11-06] MEDS: CYANOCOBALAMIN 1,000 MCG TABLET (FP) PO SCH (11:50)
[2021-11-06] MEDS: ZINC SULFATE 220 MG CAPSULE (FP) PO SCH (11:50)
[2021-11-06] MEDS: COLLAGENASE CLOSTRIDIUM HIST. 30 GRAMS TUBE TP SCH (11:51)
[2021-11-06 12:07] LABS: ANISOCYTOSIS 0; HELMET CELLS 0; HOWELL-JOLLY BODIES 0; MACROCYTOSIS 0; OVALOCYTE 0; ROULEAU 0; SICKELED CELLS 0; TARGET CELLS 0; TEAR DROP CELLS 0; TOXIC GRANULATION 0
[2021-11-06] MEDS: MIRTAZAPINE 15 MG TABLET (FP) PO SCH (21:14)
[2021-11-06] MEDS: MEGESTROL ACETATE 400 MG/10 ML UNIT DOSE CUP PO SCH (21:14)
[2021-11-07] MEDS: QUEtiapine FUMARATE 25 MG TABLET PO SCH ×3 (06:11→21:39)
[2021-11-07] MEDS: LEVOTHYROXINE NA 75 MCG TABLET (FP) PO SCH (06:11)
[2021-11-07] MEDS: INSULIN SLIDING SCALE (NOVOLOG) 1 VIAL SQ SCH ×4 (06:11→22:02)
[2021-11-07] MEDS: AMINO ACIDS/PROTEIN HYDROLYS 30 ML LIQUID.PKT PO SCH ×2 (10:10→17:28)
[2021-11-07] MEDS: DONEPEZIL HCL 10 MG TABLET (FP) PO SCH (10:11)
[2021-11-07] MEDS: PANTOPRAZOLE 40 MG TABLET PO SCH (10:11)
[2021-11-07] MEDS: CLOPIDOGREL BISULFATE 75 MG TABLET (FP) PO SCH (10:11)
[2021-11-07] MEDS: MULTIVITAMINS (DAILY MVI) TABLET (FP) PO SCH (10:11)
[2021-11-07] MEDS: ASCORBIC ACID 500 MG TABLET (FP) PO SCH ×2 (10:11→21:39)
[2021-11-07] MEDS: CYANOCOBALAMIN 1,000 MCG TABLET (FP) PO SCH (10:11)
[2021-11-07] MEDS: ZINC SULFATE 220 MG CAPSULE (FP) PO SCH (10:11)
[2021-11-07] MEDS: THIAMINE HCL 100 MG TABLET (FP) PO SCH (10:11)
[2021-11-07] MEDS: INSULIN (LEVEMIR) 100 UNITS/ML UNITS SQ SCH ×2 (10:12→21:39)
[2021-11-07] MEDS: MEGESTROL ACETATE 400 MG/10 ML UNIT DOSE CUP PO SCH (10:15)
[2021-11-07] MEDS: COLLAGENASE CLOSTRIDIUM HIST. 30 GRAMS TUBE TP SCH (10:16)
[2021-11-07 13:48] LABS: HEMOGLOBIN 8.9 GM/dL (11.7-16.9); MCH 28.3 pg (25.7-33.7); MEAN CELL VOLUME 85.8 fl (80-96); MEAN PLT VOLUME 7.8 fl (7.5-11.1); PLATELET COUNT 507 10^3/uL (134-434); RBC 3.15 M/mm3 (4.00-5.60); RDW 14.5 % (11.9-15.9); WHITE BLOOD COUNT 17.5 K/mm3 (4.0-10.0)
[2021-11-07] MEDS: LISINOPRIL 10 MG TABLET PO SCH (14:14)
[2021-11-07 15:11] LABS: ANISOCYTOSIS 0; MACROCYTOSIS 0
[2021-11-07] MEDS: MIRTAZAPINE 15 MG TABLET (FP) PO SCH (21:39)
[2021-11-08] MEDS: LEVOTHYROXINE NA 75 MCG TABLET (FP) PO SCH (06:15)
[2021-11-08] MEDS: QUEtiapine FUMARATE 25 MG TABLET PO SCH ×3 (06:15→21:27)
[2021-11-08] MEDS: INSULIN SLIDING SCALE (NOVOLOG) 1 VIAL SQ SCH ×4 (06:15→21:28)
[2021-11-08] MEDS: ASCORBIC ACID 500 MG TABLET (FP) PO SCH ×2 (09:32→21:27)
[2021-11-08] MEDS: DONEPEZIL HCL 10 MG TABLET (FP) PO SCH (09:32)
[2021-11-08] MEDS: CLOPIDOGREL BISULFATE 75 MG TABLET (FP) PO SCH (09:32)
[2021-11-08] MEDS: MULTIVITAMINS (DAILY MVI) TABLET (FP) PO SCH (09:32)
[2021-11-08] MEDS: ZINC SULFATE 220 MG CAPSULE (FP) PO SCH (09:32)
[2021-11-08] MEDS: CYANOCOBALAMIN 1,000 MCG TABLET (FP) PO SCH (09:32)
[2021-11-08] MEDS: PANTOPRAZOLE 40 MG TABLET PO SCH (09:32)
[2021-11-08] MEDS: AMINO ACIDS/PROTEIN HYDROLYS 30 ML LIQUID.PKT PO SCH ×2 (09:32→16:59)
[2021-11-08] MEDS: THIAMINE HCL 100 MG TABLET (FP) PO SCH (09:32)
[2021-11-08] MEDS: MEGESTROL ACETATE 400 MG/10 ML UNIT DOSE CUP PO SCH (09:33)
[2021-11-08] MEDS: oxyCODONE HCL 5 MG TABLET PO PRN (10:02)
[2021-11-08] MEDS ORDERED: INSULIN SLIDING SCALE (NOVOLOG) 1 VIAL SQ ONE (11:19)
[2021-11-08] MEDS: INSULIN (LEVEMIR) 100 UNITS/ML UNITS SQ SCH ×2 (11:32→21:41)
[2021-11-08] MEDS: COLLAGENASE CLOSTRIDIUM HIST. 30 GRAMS TUBE TP SCH (12:15)
[2021-11-08] MEDS: MIRTAZAPINE 15 MG TABLET (FP) PO SCH (21:27)
[2021-11-09] MEDS: QUEtiapine FUMARATE 25 MG TABLET PO SCH ×3 (05:52→21:13)
[2021-11-09] MEDS: LEVOTHYROXINE NA 75 MCG TABLET (FP) PO SCH (06:00)
[2021-11-09] MEDS: INSULIN SLIDING SCALE (NOVOLOG) 1 VIAL SQ SCH ×4 (06:00→21:21)
[2021-11-09] MEDS: AMINO ACIDS/PROTEIN HYDROLYS 30 ML LIQUID.PKT PO SCH ×2 (08:25→17:46)
[2021-11-09] MEDS: ZINC SULFATE 220 MG CAPSULE (FP) PO SCH (11:13)
[2021-11-09] MEDS: THIAMINE HCL 100 MG TABLET (FP) PO SCH (11:13)
[2021-11-09] MEDS: ASCORBIC ACID 500 MG TABLET (FP) PO SCH ×2 (11:13→21:13)
[2021-11-09] MEDS: MEGESTROL ACETATE 400 MG/10 ML UNIT DOSE CUP PO SCH (11:13)
[2021-11-09] MEDS: MULTIVITAMINS (DAILY MVI) TABLET (FP) PO SCH (11:13)
[2021-11-09] MEDS: PANTOPRAZOLE 40 MG TABLET PO SCH (11:13)
[2021-11-09] MEDS: CYANOCOBALAMIN 1,000 MCG TABLET (FP) PO SCH (11:14)
[2021-11-09] MEDS: COLLAGENASE CLOSTRIDIUM HIST. 30 GRAMS TUBE TP SCH (11:14)
[2021-11-09] MEDS: DONEPEZIL HCL 10 MG TABLET (FP) PO SCH (11:14)
[2021-11-09] MEDS: INSULIN (LEVEMIR) 100 UNITS/ML UNITS SQ SCH ×2 (11:39→21:21)
[2021-11-09] MEDS: CLOPIDOGREL BISULFATE 75 MG TABLET (FP) PO SCH (11:45)
[2021-11-09] MEDS: MIRTAZAPINE 15 MG TABLET (FP) PO SCH (21:13)
[2021-11-09] MEDS: oxyCODONE HCL 5 MG TABLET PO PRN (21:13)
[2021-11-10] MEDS: QUEtiapine FUMARATE 25 MG TABLET PO SCH ×3 (06:08→22:37)
[2021-11-10] MEDS: LEVOTHYROXINE NA 75 MCG TABLET (FP) PO SCH (06:08)
[2021-11-10] MEDS: INSULIN SLIDING SCALE (NOVOLOG) 1 VIAL SQ SCH ×4 (06:08→22:38)
[2021-11-10] MEDS: AMINO ACIDS/PROTEIN HYDROLYS 30 ML LIQUID.PKT PO SCH ×2 (08:24→17:21)
[2021-11-10] MEDS: INSULIN (LEVEMIR) 100 UNITS/ML UNITS SQ SCH ×2 (10:05→22:43)
[2021-11-10] MEDS: DONEPEZIL HCL 10 MG TABLET (FP) PO SCH (10:06)
[2021-11-10] MEDS: ZINC SULFATE 220 MG CAPSULE (FP) PO SCH (10:06)
[2021-11-10] MEDS: MULTIVITAMINS (DAILY MVI) TABLET (FP) PO SCH (10:06)
[2021-11-10] MEDS: CLOPIDOGREL BISULFATE 75 MG TABLET (FP) PO SCH (10:06)
[2021-11-10] MEDS: ASCORBIC ACID 500 MG TABLET (FP) PO SCH ×2 (10:06→22:37)
[2021-11-10] MEDS: CYANOCOBALAMIN 1,000 MCG TABLET (FP) PO SCH (10:06)
[2021-11-10] MEDS: THIAMINE HCL 100 MG TABLET (FP) PO SCH (10:06)
[2021-11-10] MEDS: PANTOPRAZOLE 40 MG TABLET PO SCH (10:06)
[2021-11-10] MEDS: MEGESTROL ACETATE 400 MG/10 ML UNIT DOSE CUP PO SCH (10:07)
[2021-11-10] MEDS: COLLAGENASE CLOSTRIDIUM HIST. 30 GRAMS TUBE TP SCH (10:08)
[2021-11-10 10:51] LABS: HEMATOCRIT 28.3 % (35.4-49); HEMOGLOBIN 9.4 GM/dL (11.7-16.9); MCH 28.5 pg (25.7-33.7); MCHC 33.4 g/dl (32.0-35.9); MEAN CELL VOLUME 85.4 fl (80-96); MEAN PLT VOLUME 7.8 fl (7.5-11.1); PLATELET COUNT 524 10^3/uL (134-434); RBC 3.31 M/mm3 (4.00-5.60); RDW 14.6 % (11.9-15.9); WHITE BLOOD COUNT 20.4 K/mm3 (4.0-10.0)
[2021-11-10 11:19] LABS: ANISOCYTOSIS 0; HELMET CELLS 0; HOWELL-JOLLY BODIES 0; MACROCYTOSIS 0; OVALOCYTE 0; ROULEAU 0; SICKELED CELLS 0; TARGET CELLS 0; TEAR DROP CELLS 0; TOXIC GRANULATION 0
[2021-11-10 11:21] LABS: BLOOD UREA NITROGEN 29.5 mg/dL (7-18); CALCIUM 8.7 mg/dL (8.5-10.1)
[2021-11-10 11:22] LABS: ALBUMIN 2.6 g/dl (3.4-5.0)
[2021-11-10 11:25] LABS: CREATININE 0.7 mg/dL (0.55-1.3)
[2021-11-10 11:28] LABS: TOT PROT 5.5 g/dl (6.4-8.2)
[2021-11-10 11:30] LABS: BILIRUBIN,TOTAL 0.5 mg/dL (0.2-1)
[2021-11-10] MEDS: MIRTAZAPINE 15 MG TABLET (FP) PO SCH (22:38)
[2021-11-11] MEDS: QUEtiapine FUMARATE 25 MG TABLET PO SCH ×3 (06:16→23:19)
[2021-11-11] MEDS: LEVOTHYROXINE NA 75 MCG TABLET (FP) PO SCH (06:16)
[2021-11-11] MEDS: INSULIN SLIDING SCALE (NOVOLOG) 1 VIAL SQ SCH ×4 (06:16→23:17)
[2021-11-11] MEDS: AMINO ACIDS/PROTEIN HYDROLYS 30 ML LIQUID.PKT PO SCH ×2 (08:40→16:36)
[2021-11-11] MEDS: TAMSULOSIN HCL 0.4 MG CAP PO SCH (08:40)
[2021-11-11 10:57] LABS: HEMATOCRIT 29.2 % (35.4-49); HEMOGLOBIN 9.7 GM/dL (11.7-16.9); MCH 28.6 pg (25.7-33.7); MCHC 33.3 g/dl (32.0-35.9); MEAN CELL VOLUME 85.8 fl (80-96); MEAN PLT VOLUME 7.6 fl (7.5-11.1); PLATELET COUNT 557 10^3/uL (134-434); RDW 15.1 % (11.9-15.9); WHITE BLOOD COUNT 18.9 K/mm3 (4.0-10.0)
[2021-11-11] MEDS: MULTIVITAMINS (DAILY MVI) TABLET (FP) PO SCH (11:24)
[2021-11-11] MEDS: CLOPIDOGREL BISULFATE 75 MG TABLET (FP) PO SCH (11:24)
[2021-11-11] MEDS: THIAMINE HCL 100 MG TABLET (FP) PO SCH (11:24)
[2021-11-11] MEDS: DONEPEZIL HCL 10 MG TABLET (FP) PO SCH (11:24)
[2021-11-11] MEDS: PANTOPRAZOLE 40 MG TABLET PO SCH (11:24)
[2021-11-11] MEDS: CYANOCOBALAMIN 1,000 MCG TABLET (FP) PO SCH (11:24)
[2021-11-11] MEDS: DRONABINOL 2.5 MG CAPSULE PO SCH (11:24)
[2021-11-11] MEDS: ASCORBIC ACID 500 MG TABLET (FP) PO SCH ×2 (11:24→23:19)
[2021-11-11] MEDS: ZINC SULFATE 220 MG CAPSULE (FP) PO SCH (11:25)
[2021-11-11] MEDS: INSULIN (LEVEMIR) 100 UNITS/ML UNITS SQ SCH ×2 (11:25→23:16)
[2021-11-11 11:55] LABS: ANISOCYTOSIS 0; HELMET CELLS 0; HOWELL-JOLLY BODIES 0; MACROCYTOSIS 0; OVALOCYTE 0; ROULEAU 0; SICKELED CELLS 0; TARGET CELLS 0; TEAR DROP CELLS 0; TOXIC GRANULATION 0
[2021-11-11] MEDS: COLLAGENASE CLOSTRIDIUM HIST. 30 GRAMS TUBE TP SCH (12:21)
[2021-11-11] MEDS: MIRTAZAPINE 15 MG TABLET (FP) PO SCH (23:19)
[2021-11-12] MEDS: QUEtiapine FUMARATE 25 MG TABLET PO SCH ×3 (06:03→22:13)
[2021-11-12] MEDS: INSULIN SLIDING SCALE (NOVOLOG) 1 VIAL SQ SCH ×4 (06:28→22:21)
[2021-11-12] MEDS: LEVOTHYROXINE NA 75 MCG TABLET (FP) PO SCH (06:44)
[2021-11-12] MEDS: AMINO ACIDS/PROTEIN HYDROLYS 30 ML LIQUID.PKT PO SCH ×2 (08:42→16:54)
[2021-11-12] MEDS: TAMSULOSIN HCL 0.4 MG CAP PO SCH (08:42)
[2021-11-12] MEDS: CLOPIDOGREL BISULFATE 75 MG TABLET (FP) PO SCH (09:53)
[2021-11-12] MEDS: PANTOPRAZOLE 40 MG TABLET PO SCH (09:53)
[2021-11-12] MEDS: THIAMINE HCL 100 MG TABLET (FP) PO SCH (09:53)
[2021-11-12] MEDS: DRONABINOL 2.5 MG CAPSULE PO SCH (09:53)
[2021-11-12] MEDS: DONEPEZIL HCL 10 MG TABLET (FP) PO SCH (09:53)
[2021-11-12] MEDS: ASCORBIC ACID 500 MG TABLET (FP) PO SCH ×2 (09:53→22:13)
[2021-11-12] MEDS: ZINC SULFATE 220 MG CAPSULE (FP) PO SCH (09:53)
[2021-11-12] MEDS: MULTIVITAMINS (DAILY MVI) TABLET (FP) PO SCH (09:54)
[2021-11-12] MEDS: CYANOCOBALAMIN 1,000 MCG TABLET (FP) PO SCH (09:54)
[2021-11-12] MEDS: INSULIN (LEVEMIR) 100 UNITS/ML UNITS SQ SCH ×2 (09:54→22:22)
[2021-11-12] MEDS: COLLAGENASE CLOSTRIDIUM HIST. 30 GRAMS TUBE TP SCH (12:44)
[2021-11-12] MEDS: MIRTAZAPINE 15 MG TABLET (FP) PO SCH (22:13)
[2021-11-13] MEDS: QUEtiapine FUMARATE 25 MG TABLET PO SCH ×3 (05:53→22:25)
[2021-11-13] MEDS: INSULIN SLIDING SCALE (NOVOLOG) 1 VIAL SQ SCH ×4 (06:01→22:27)
[2021-11-13] MEDS: LEVOTHYROXINE NA 75 MCG TABLET (FP) PO SCH (06:02)
[2021-11-13] MEDS: TAMSULOSIN HCL 0.4 MG CAP PO SCH (08:49)
[2021-11-13] MEDS: AMINO ACIDS/PROTEIN HYDROLYS 30 ML LIQUID.PKT PO SCH ×2 (08:49→17:36)
[2021-11-13] MEDS: ASCORBIC ACID 500 MG TABLET (FP) PO SCH ×2 (10:30→22:25)
[2021-11-13] MEDS: CLOPIDOGREL BISULFATE 75 MG TABLET (FP) PO SCH (10:30)
[2021-11-13] MEDS: MULTIVITAMINS (DAILY MVI) TABLET (FP) PO SCH (10:30)
[2021-11-13] MEDS: THIAMINE HCL 100 MG TABLET (FP) PO SCH (10:30)
[2021-11-13] MEDS: DRONABINOL 2.5 MG CAPSULE PO SCH (10:30)
[2021-11-13] MEDS: CYANOCOBALAMIN 1,000 MCG TABLET (FP) PO SCH (10:30)
[2021-11-13] MEDS: ZINC SULFATE 220 MG CAPSULE (FP) PO SCH (10:30)
[2021-11-13] MEDS: PANTOPRAZOLE 40 MG TABLET PO SCH (10:30)
[2021-11-13] MEDS: DONEPEZIL HCL 10 MG TABLET (FP) PO SCH (10:30)
[2021-11-13] MEDS: INSULIN (LEVEMIR) 100 UNITS/ML UNITS SQ SCH ×2 (10:31→22:25)
[2021-11-13] MEDS: COLLAGENASE CLOSTRIDIUM HIST. 30 GRAMS TUBE TP SCH (10:31)
[2021-11-13] MEDS: MIRTAZAPINE 15 MG TABLET (FP) PO SCH (22:25)
[2021-11-14] MEDS: INSULIN SLIDING SCALE (NOVOLOG) 1 VIAL SQ SCH ×4 (06:01→21:48)
[2021-11-14] MEDS: QUEtiapine FUMARATE 25 MG TABLET PO SCH ×3 (06:04→21:48)
[2021-11-14] MEDS: LEVOTHYROXINE NA 75 MCG TABLET (FP) PO SCH (06:04)
[2021-11-14] MEDS ORDERED: TAMSULOSIN HCL 0.4 MG CAP PO SCH (11:49)
[2021-11-14] MEDS: AMINO ACIDS/PROTEIN HYDROLYS 30 ML LIQUID.PKT PO SCH ×2 (12:49→18:18)
[2021-11-14] MEDS: ASCORBIC ACID 500 MG TABLET (FP) PO SCH ×2 (12:52→21:48)
[2021-11-14] MEDS: DONEPEZIL HCL 10 MG TABLET (FP) PO SCH (12:52)
[2021-11-14] MEDS: THIAMINE HCL 100 MG TABLET (FP) PO SCH (12:53)
[2021-11-14] MEDS: ZINC SULFATE 220 MG CAPSULE (FP) PO SCH (12:53)
[2021-11-14] MEDS: MULTIVITAMINS (DAILY MVI) TABLET (FP) PO SCH (12:53)
[2021-11-14] MEDS: DRONABINOL 2.5 MG CAPSULE PO SCH (12:53)
[2021-11-14] MEDS: CYANOCOBALAMIN 1,000 MCG TABLET (FP) PO SCH (12:53)
[2021-11-14] MEDS: PANTOPRAZOLE 40 MG TABLET PO SCH (12:53)
[2021-11-14] MEDS: CLOPIDOGREL BISULFATE 75 MG TABLET (FP) PO SCH (12:53)
[2021-11-14] MEDS: COLLAGENASE CLOSTRIDIUM HIST. 30 GRAMS TUBE TP SCH (12:56)
[2021-11-14] MEDS: INSULIN (LEVEMIR) 100 UNITS/ML UNITS SQ SCH ×2 (12:56→21:47)
[2021-11-14] MEDS: TAMSULOSIN HCL 0.4 MG CAP PO SCH (13:07)
[2021-11-14] MEDS: MIRTAZAPINE 15 MG TABLET (FP) PO SCH (21:48)
[2021-11-15] MEDS: INSULIN SLIDING SCALE (NOVOLOG) 1 VIAL SQ SCH ×2 (06:22→11:39)
[2021-11-15] MEDS: LEVOTHYROXINE NA 75 MCG TABLET (FP) PO SCH (06:38)
[2021-11-15] MEDS: QUEtiapine FUMARATE 25 MG TABLET PO SCH (06:38)
[2021-11-15] MEDS: AMINO ACIDS/PROTEIN HYDROLYS 30 ML LIQUID.PKT PO SCH (08:33)
[2021-11-15] MEDS: THIAMINE HCL 100 MG TABLET (FP) PO SCH (09:42)
[2021-11-15] MEDS: DRONABINOL 2.5 MG CAPSULE PO SCH (09:42)
[2021-11-15] MEDS: ZINC SULFATE 220 MG CAPSULE (FP) PO SCH (09:42)
[2021-11-15] MEDS: ASCORBIC ACID 500 MG TABLET (FP) PO SCH (09:42)
[2021-11-15] MEDS: CLOPIDOGREL BISULFATE 75 MG TABLET (FP) PO SCH (09:42)
[2021-11-15] MEDS: MULTIVITAMINS (DAILY MVI) TABLET (FP) PO SCH (09:42)
[2021-11-15] MEDS: DONEPEZIL HCL 10 MG TABLET (FP) PO SCH (09:43)
[2021-11-15] MEDS: COLLAGENASE CLOSTRIDIUM HIST. 30 GRAMS TUBE TP SCH (09:43)
[2021-11-15] MEDS: PANTOPRAZOLE 40 MG TABLET PO SCH (09:43)
[2021-11-15] MEDS: CYANOCOBALAMIN 1,000 MCG TABLET (FP) PO SCH (09:43)
[2021-11-15] MEDS: INSULIN (LEVEMIR) 100 UNITS/ML UNITS SQ SCH (09:43)
[2021-11-15 12:22] VITALS: BP 120/58; PULSE 841; TEMP 97.5
[2021-11-15 16:17] LABS: SARS-CoV-2 NAA Not Detected (Not Detected)
== END 2021-11-15 12:36 | disposition home or self-care (01) | DRG 270 ==
LOC: JER 18:31 → JERBED 19:44 → J5S 10-21 07:56
PROVIDERS: ADMIT Hospitalist; ATTEND Internal Medicine
PROC: 04CU3ZZ Extirpation of Matter from Left Peroneal Artery, Percutaneous Approach (ICD-10-PCS; 2021-11-03)
PROC: 047U3ZZ Dilation of Left Peroneal Artery, Percutaneous Approach (ICD-10-PCS; 2021-11-03)
PROC: 047N3Z1 Dilation of Left Popliteal Artery using Drug-Coated Balloon, Percutaneous Approach (ICD-10-PCS; 2021-11-03)
PROC: B40DYZZ Plain Radiography of Aorta and Bilateral Lower Extremity Arteries using Other Contrast (ICD-10-PCS; 2021-11-03)
PROC: B40GYZZ Plain Radiography of Left Lower Extremity Arteries using Other Contrast (ICD-10-PCS; 2021-11-03)
PROC: 04CN3ZZ Extirpation of Matter from Left Popliteal Artery, Percutaneous Approach (ICD-10-PCS; principal; 2021-11-03 15:30)
DX: E11.52 Type 2 diabetes mellitus with diabetic peripheral angiopathy with gangrene (principal); L89.894 Pressure ulcer of other site, stage 4; L89.154 Pressure ulcer of sacral region, stage 4; L89.893 Pressure ulcer of other site, stage 3; L97.428 Non-pressure chronic ulcer of left heel and midfoot with other specified severity; I96 Gangrene, not elsewhere classified; L98.498 Non-pressure chronic ulcer of skin of other sites with other specified severity; E11.621 Type 2 diabetes mellitus with foot ulcer; I10 Essential (primary) hypertension; G30.9 Alzheimer's disease, unspecified; F02.80 Dementia in other diseases classified elsewhere, unspecified severity, without behavioral disturbance, psychotic disturbance, mood disturbance, and anxiety; E03.9 Hypothyroidism, unspecified; K21.9 Gastro-esophageal reflux disease without esophagitis; D72.829 Elevated white blood cell count, unspecified; R41.82 Altered mental status, unspecified; E11.649 Type 2 diabetes mellitus with hypoglycemia without coma; L08.9 Local infection of the skin and subcutaneous tissue, unspecified; R63.0 Anorexia; R13.10 Dysphagia, unspecified; I77.1 Stricture of artery; R32 Unspecified urinary incontinence; E78.5 Hyperlipidemia, unspecified; Z74.01 Bed confinement status
CPT/HCPCS: 36415; 36430; 71045-TC-FY; 73610-TC-RT-FY; 76000-TC-FY; 80048; 80053; 82172; 82962; 82977; 83010; 83883; 84443; 84460; 85025; 85610; 85651; 85730; 86140; 86850; 86900; 86901; 86922; 87040; 87340; 87389; 88300-TC; 93005; 93010; 93922; 93925-TC; 94760; 99285-25; C9803-CS; J1644; J1756; P9058; U0003; U0005

== ENCOUNTER 2021-12-24 19:46 | Inpatient (IN) | payer OTHER ==
[2021-12-24] MEDS ORDERED: DEXTROSE 50%-WATER - 25 GM/50 ML VIAL IVPUSH PRN (20:00)
[2021-12-24] MEDS ORDERED: GLUCAGON 1 MG KIT IM ONE (20:01)
[2021-12-24] MEDS ORDERED: DEXTROSE 50%-WATER - 25 GM/50 ML VIAL IVPUSH ONE (20:26)
[2021-12-24] MEDS ORDERED: DEXTROSE 5%-NORMAL SALINE 1,000 ML IV ONE (20:29)
[2021-12-24] MEDS ORDERED: THIAMINE HCL 200 MG/2 ML VIAL IVPB ONE (20:30)
[2021-12-24] MEDS ORDERED: THIAMINE HCL 200 MG/2 ML VIAL ONE (20:39)
[2021-12-24] MEDS ORDERED: SODIUM CHLORIDE 0.9% 1000 ML INFUS.BAG IV ONE (20:57)
[2021-12-24 21:01] LABS: BASO % 0.6 % (0-2.0); EOS % 0.5 % (0-4.5); HEMATOCRIT 22.9 % (35.4-49); HEMOGLOBIN 7.4 GM/dL (11.7-16.9); LYMPH % 10.2 % (8-40); MCH 27.6 pg (25.7-33.7); MCHC 32.3 g/dl (32.0-35.9); MEAN CELL VOLUME 85.7 fl (80-96); MEAN PLT VOLUME 6.7 fl (7.5-11.1); MONO % 7.9 % (3.8-10.2); NEUT % 80.8 % (42.8-82.8); PLATELET COUNT 683 10^3/uL (134-434); RBC 2.68 M/mm3 (4.00-5.60); WHITE BLOOD COUNT 13.5 K/mm3 (4.0-10.0)
[2021-12-24 21:24] LABS: CALCIUM 7.4 mg/dL (8.5-10.1)
[2021-12-24 21:25] LABS: ALBUMIN 1.6 g/dl (3.4-5.0); BLOOD UREA NITROGEN 20.9 mg/dL (7-18); MAGNESIUM 1.6 mg/dL (1.8-2.4)
[2021-12-24 21:27] LABS: PHOSPHOROUS 4.4 mg/dL (2.5-4.9)
[2021-12-24 21:28] LABS: CREATININE 0.9 mg/dL (0.55-1.3)
[2021-12-24 21:29] LABS: BILIRUBIN,TOTAL 0.3 mg/dL (0.2-1); TOT PROT 4.2 g/dl (6.4-8.2)
[2021-12-24 21:33] LABS: ANISOCYTOSIS 1+; MACROCYTOSIS 1+
[2021-12-24 21:34] LABS: PLATELET ESTIMATE INCREASED
[2021-12-25] MEDS ORDERED: LACTATED RINGERS SOLUTION 1,000 ML/1,000 ML INFUS.BAG IV SCH (00:30)
[2021-12-25] MEDS ORDERED: MAGNESIUM SULFATE IN WATER 2 GM/50 ML IVPB IVPB ONE (00:39)
[2021-12-25] MEDS ORDERED: PIPERACILLIN/TAZOB 3.375 GM 3.375 GM/50 ML BAG IVPB ONE ×2 (00:40→09:06)
[2021-12-25] MEDS ORDERED: MAGNESIUM SULF 50% (8.12 MEQ/2 ML-1 GM VIAL) IVPB ONE (00:45)
[2021-12-25] MEDS: DEXTROSE 5%-NORMAL SALINE 1,000 ML IV SCH (00:56)
[2021-12-25] MEDS ORDERED: VANCOMYCIN 1 GRAM (PRE-DOCKED) 1,000 MG/250 ML BAG IVPB ONE (01:00)
[2021-12-25 02:01] LABS: EPI CELLS 13 /uL (0-25.1); HYALINE CASTS 3 /uL (0-3.1); PH,URINE >= 9.0 (5.0-8.0); URINE APPEARANCE CLOUDY; URINE BACTERIA 3867 /uL (0-1359); URINE BILIRUBIN NEGATIVE (NEGATIVE); URINE COLOR YELLOW; URINE GLUCOSE (UA) NEGATIVE (NEGATIVE); URINE KETONE NEGATIVE (NEGATIVE); URINE LEUK ESTERASE 2+ (NEGATIVE); URINE NITRITE NEGATIVE (NEGATIVE); URINE PROTEIN 2+ (NEGATIVE); URINE RBC 4 /uL (0-23.9); URINE UROBILINOGEN 0.2 mg/dL (0.2-1.0); URINE WBC 15 /uL (0-25.8)
[2021-12-25] MEDS: PIPERACILLIN/TAZOB 3.375 GM 3.375 GM in DEXTROSE 5%-WATER - 50 ML IVPB SCH ×3 (02:29→17:57)
[2021-12-25] MEDS ORDERED: QUEtiapine FUMARATE 25 MG TABLET ONE ×3 (02:56→14:24)
[2021-12-25] MEDS: QUEtiapine FUMARATE 25 MG TABLET PO SCH ×4 (03:00→21:48)
[2021-12-25] MEDS ORDERED: LEVOTHYROXINE NA 50 MCG TABLET (FP) PO SCH (07:00)
[2021-12-25] MEDS: LEVOTHYROXINE NA 50 MCG TABLET (FP) PO SCH (08:00)
[2021-12-25] MEDS ORDERED: LEVOTHYROXINE NA 50 MCG TABLET (FP) ONE (08:15)
[2021-12-25] MEDS ORDERED: DONEPEZIL HCL 5 MG TABLET (FP) ONE (08:52)
[2021-12-25 09:02] LABS: HEMATOCRIT 22.6 % (35.4-49); HEMOGLOBIN 7.5 GM/dL (11.7-16.9); MCH 28.1 pg (25.7-33.7); MCHC 33.3 g/dl (32.0-35.9); MEAN CELL VOLUME 84.3 fl (80-96); MEAN PLT VOLUME 6.7 fl (7.5-11.1); PLATELET COUNT 652 10^3/uL (134-434); RBC 2.69 M/mm3 (4.00-5.60); RDW 15.7 % (11.9-15.9); WHITE BLOOD COUNT 12.5 K/mm3 (4.0-10.0)
[2021-12-25] MEDS: DONEPEZIL HCL 10 MG TABLET (FP) PO SCH (09:05)
[2021-12-25 09:29] LABS: CALCIUM 7.4 mg/dL (8.5-10.1); MAGNESIUM 2.1 mg/dL (1.8-2.4)
[2021-12-25 09:30] LABS: ALBUMIN 1.5 g/dl (3.4-5.0)
[2021-12-25 09:32] LABS: BLOOD UREA NITROGEN 16.5 mg/dL (7-18); CREATININE 0.7 mg/dL (0.55-1.3)
[2021-12-25 09:33] LABS: PHOSPHOROUS 3.6 mg/dL (2.5-4.9)
[2021-12-25 09:34] LABS: BILIRUBIN,TOTAL 0.3 mg/dL (0.2-1)
[2021-12-25] MEDS ORDERED: VANCOMYCIN 1 GM in D5W (PRE-DOCKED) 1,000 MG/250 ML IVPB SCH (10:00)
[2021-12-25 11:09] LABS: ANISOCYTOSIS 2+; MACROCYTOSIS 0
[2021-12-25] MEDS ORDERED: PIPERACILLIN/TAZOBACTAM 3.375 GM VIAL IVPB ONE (17:45)
[2021-12-25] MEDS ORDERED: DEXTROSE 5%-WATER - 50 ML IVPB ONE (17:46)
[2021-12-25] MEDS: HEPARIN NA (PORCINE) 5,000 UNITS/ML 1ML VIAL SQ SCH (21:48)
[2021-12-25] MEDS: ATORVASTATIN CA 10 MG TABLET (FP) PO SCH (21:48)
[2021-12-26] MEDS ORDERED: VANCOMYCIN/WATER FOR INJ (PEG) 1,000 MG/200 ML BAG IVPB SCH (01:00)
[2021-12-26] MEDS ORDERED: PIPERACILLIN/TAZOBACTAM 3.375 GM VIAL IVPB ONE ×2 (02:10→17:02)
[2021-12-26] MEDS ORDERED: DEXTROSE 5%-WATER - 50 ML IVPB ONE ×2 (02:10→17:02)
[2021-12-26] MEDS: PIPERACILLIN/TAZOB 3.375 GM 3.375 GM in DEXTROSE 5%-WATER - 50 ML IVPB SCH ×3 (02:35→17:32)
[2021-12-26] MEDS: DEXTROSE 5%-NORMAL SALINE 1,000 ML IV SCH (02:45)
[2021-12-26] MEDS: QUEtiapine FUMARATE 25 MG TABLET PO SCH ×3 (06:17→22:09)
[2021-12-26] MEDS: LEVOTHYROXINE NA 50 MCG TABLET (FP) PO SCH (06:18)
[2021-12-26] MEDS: DONEPEZIL HCL 10 MG TABLET (FP) PO SCH (09:55)
[2021-12-26] MEDS: HEPARIN NA (PORCINE) 5,000 UNITS/ML 1ML VIAL SQ SCH ×2 (09:55→22:09)
[2021-12-26 11:46] VITALS: BMI 17.7
[2021-12-26] MEDS: COLLAGENASE CLOSTRIDIUM HIST. 30 GRAMS TUBE TP SCH (17:28)
[2021-12-26] MEDS: AMINO ACIDS/PROTEIN HYDROLYS 30 ML LIQUID.PKT PO SCH (17:29)
[2021-12-26] MEDS: ATORVASTATIN CA 10 MG TABLET (FP) PO SCH (22:08)
[2021-12-26] MEDS: ASCORBIC ACID 500 MG TABLET (FP) PO SCH (22:08)
[2021-12-27] MEDS ORDERED: VANCOMYCIN/WATER FOR INJ (PEG) 1,000 MG/200 ML BAG IVPB SCH (01:00)
[2021-12-27] MEDS ORDERED: DEXTROSE 5%-WATER - 50 ML IVPB ONE ×3 (02:03→17:51)
[2021-12-27] MEDS ORDERED: PIPERACILLIN/TAZOBACTAM 3.375 GM VIAL IVPB ONE ×3 (02:03→17:50)
[2021-12-27 02:33] LABS: EPI CELLS >36 /uL (0-25.1); HYALINE CASTS 13 /uL (0-3.1); URINE APPEARANCE CLOUDY; URINE BACTERIA 78 /uL (0-1359); URINE BILIRUBIN NEGATIVE (NEGATIVE); URINE COLOR YELLOW; URINE GLUCOSE (UA) NEGATIVE (NEGATIVE); URINE KETONE NEGATIVE (NEGATIVE); URINE LEUK ESTERASE 2+ (NEGATIVE); URINE NITRITE NEGATIVE (NEGATIVE); URINE PROTEIN 2+ (NEGATIVE); URINE RBC 12 /uL (0-23.9); URINE UROBILINOGEN 0.2 mg/dL (0.2-1.0); URINE WBC 207 /uL (0-25.8)
[2021-12-27] MEDS: PIPERACILLIN/TAZOB 3.375 GM 3.375 GM in DEXTROSE 5%-WATER - 50 ML IVPB SCH ×4 (02:37→21:36)
[2021-12-27] MEDS: QUEtiapine FUMARATE 25 MG TABLET PO SCH ×3 (06:28→21:37)
[2021-12-27] MEDS: LEVOTHYROXINE NA 50 MCG TABLET (FP) PO SCH (06:28)
[2021-12-27 08:45] LABS: YEAST NEGATIVE (NEGATIVE)
[2021-12-27] MEDS: ASCORBIC ACID 500 MG TABLET (FP) PO SCH ×2 (09:29→21:37)
[2021-12-27] MEDS: HEPARIN NA (PORCINE) 5,000 UNITS/ML 1ML VIAL SQ SCH ×2 (09:29→21:37)
[2021-12-27] MEDS: AMINO ACIDS/PROTEIN HYDROLYS 30 ML LIQUID.PKT PO SCH ×2 (09:29→17:00)
[2021-12-27] MEDS: DONEPEZIL HCL 10 MG TABLET (FP) PO SCH (09:29)
[2021-12-27] MEDS: MULTIVITAMINS THER W-MINERALS COMBO TABLET (FP) PO SCH (09:30)
[2021-12-27] MEDS ORDERED: ACETAMINOPHEN 325 MG TABLET (FP) PO PRN (13:40)
[2021-12-27] MEDS ORDERED: oxyCODONE HCL 5 MG TABLET PO PRN (13:40)
[2021-12-27] MEDS ORDERED: IRON SUCROSE INJECTION 200 MG in SODIUM CHLORIDE 90 ML IVPB ONE (13:43)
[2021-12-27] MEDS: MEGESTROL ACETATE 400 MG/10 ML UNIT DOSE CUP PO SCH (14:53)
[2021-12-27] MEDS: COLLAGENASE CLOSTRIDIUM HIST. 30 GRAMS TUBE TP SCH (21:36)
[2021-12-27] MEDS: ATORVASTATIN CA 10 MG TABLET (FP) PO SCH (21:37)
[2021-12-28] MEDS: LEVOTHYROXINE NA 50 MCG TABLET (FP) PO SCH (06:29)
[2021-12-28] MEDS: QUEtiapine FUMARATE 25 MG TABLET PO SCH ×2 (06:29→14:13)
[2021-12-28] MEDS: PIPERACILLIN/TAZOB 3.375 GM 3.375 GM in DEXTROSE 5%-WATER - 50 ML IVPB SCH ×4 (06:29→18:47)
[2021-12-28 08:47] LABS: HEMATOCRIT 23.3 % (35.4-49); HEMOGLOBIN 7.7 GM/dL (11.7-16.9); MCH 27.6 pg (25.7-33.7); MCHC 33.1 g/dl (32.0-35.9); MEAN CELL VOLUME 83.3 fl (80-96); MEAN PLT VOLUME 6.9 fl (7.5-11.1); PLATELET COUNT 822 10^3/uL (134-434); RDW 16.1 % (11.9-15.9); WHITE BLOOD COUNT 20.7 K/mm3 (4.0-10.0)
[2021-12-28 09:18] LABS: CALCIUM 8.1 mg/dL (8.5-10.1)
[2021-12-28 09:19] LABS: ALBUMIN 1.9 g/dl (3.4-5.0); BLOOD UREA NITROGEN 39.6 mg/dL (7-18)
[2021-12-28 09:22] LABS: CREATININE 1.2 mg/dL (0.55-1.3)
[2021-12-28 09:24] LABS: BILIRUBIN,TOTAL 0.4 mg/dL (0.2-1); TOT PROT 4.4 g/dl (6.4-8.2)
[2021-12-28] MEDS ORDERED: DEXTROSE 5%-WATER - 50 ML IVPB ONE ×2 (09:41→17:49)
[2021-12-28] MEDS ORDERED: PIPERACILLIN/TAZOBACTAM 3.375 GM VIAL IVPB ONE ×2 (09:41→17:49)
[2021-12-28 10:04] LABS: ANISOCYTOSIS 0; HELMET CELLS 0; HOWELL-JOLLY BODIES 0; MACROCYTOSIS 0; OVALOCYTE 0; ROULEAU 0; SICKELED CELLS 0; TARGET CELLS 0; TEAR DROP CELLS 0; TOXIC GRANULATION 0
[2021-12-28] MEDS: MULTIVITAMINS THER W-MINERALS COMBO TABLET (FP) PO SCH (10:20)
[2021-12-28] MEDS: ASCORBIC ACID 500 MG TABLET (FP) PO SCH (10:20)
[2021-12-28] MEDS: DONEPEZIL HCL 10 MG TABLET (FP) PO SCH (10:20)
[2021-12-28] MEDS: MEGESTROL ACETATE 400 MG/10 ML UNIT DOSE CUP PO SCH (10:20)
[2021-12-28] MEDS: AMINO ACIDS/PROTEIN HYDROLYS 30 ML LIQUID.PKT PO SCH ×2 (10:20→17:51)
[2021-12-28] MEDS: HEPARIN NA (PORCINE) 5,000 UNITS/ML 1ML VIAL SQ SCH (10:21)
[2021-12-28] MEDS: COLLAGENASE CLOSTRIDIUM HIST. 30 GRAMS TUBE TP SCH (10:45)
[2021-12-29] MEDS: ATORVASTATIN CA 10 MG TABLET (FP) PO SCH (00:43)
[2021-12-29] MEDS: ASCORBIC ACID 500 MG TABLET (FP) PO SCH ×2 (00:43→10:14)
[2021-12-29] MEDS: QUEtiapine FUMARATE 25 MG TABLET PO SCH ×3 (00:43→13:40)
[2021-12-29] MEDS: HEPARIN NA (PORCINE) 5,000 UNITS/ML 1ML VIAL SQ SCH ×2 (00:45→10:11)
[2021-12-29] MEDS ORDERED: PIPERACILLIN/TAZOBACTAM 3.375 GM VIAL IVPB ONE ×3 (00:54→16:54)
[2021-12-29] MEDS ORDERED: DEXTROSE 5%-WATER - 50 ML IVPB ONE ×3 (00:54→16:54)
[2021-12-29] MEDS: PIPERACILLIN/TAZOB 3.375 GM 3.375 GM in DEXTROSE 5%-WATER - 50 ML IVPB SCH ×3 (01:47→17:19)
[2021-12-29] MEDS: LEVOTHYROXINE NA 50 MCG TABLET (FP) PO SCH (07:20)
[2021-12-29 08:26] LABS: HEMATOCRIT 22.4 % (35.4-49); HEMOGLOBIN 7.3 GM/dL (11.7-16.9); MCH 27.2 pg (25.7-33.7); MCHC 32.7 g/dl (32.0-35.9); MEAN CELL VOLUME 83.2 fl (80-96); MEAN PLT VOLUME 6.8 fl (7.5-11.1); PLATELET COUNT 735 10^3/uL (134-434); RBC 2.69 M/mm3 (4.00-5.60); WHITE BLOOD COUNT 19.6 K/mm3 (4.0-10.0)
[2021-12-29] MEDS: DONEPEZIL HCL 10 MG TABLET (FP) PO SCH (10:08)
[2021-12-29] MEDS: MULTIVITAMINS THER W-MINERALS COMBO TABLET (FP) PO SCH (10:10)
[2021-12-29] MEDS: MEGESTROL ACETATE 400 MG/10 ML UNIT DOSE CUP PO SCH (10:10)
[2021-12-29] MEDS: AMINO ACIDS/PROTEIN HYDROLYS 30 ML LIQUID.PKT PO SCH ×2 (10:13→17:19)
[2021-12-29] MEDS: ZINC SULFATE 220 MG CAPSULE (FP) PO SCH (10:47)
[2021-12-29 13:14] LABS: ANISOCYTOSIS 2+; MACROCYTOSIS 0; OVALOCYTE 2+; TEAR DROP CELLS 2+
[2021-12-29] MEDS: COLLAGENASE CLOSTRIDIUM HIST. 30 GRAMS TUBE TP SCH (15:33)
[2021-12-30] MEDS: ASCORBIC ACID 500 MG TABLET (FP) PO SCH ×2 (00:06→09:25)
[2021-12-30] MEDS: HEPARIN NA (PORCINE) 5,000 UNITS/ML 1ML VIAL SQ SCH ×2 (00:07→09:25)
[2021-12-30] MEDS: ATORVASTATIN CA 10 MG TABLET (FP) PO SCH (00:07)
[2021-12-30] MEDS: QUEtiapine FUMARATE 25 MG TABLET PO SCH ×3 (00:07→13:55)
[2021-12-30] MEDS ORDERED: DEXTROSE 5%-WATER - 50 ML IVPB ONE ×2 (00:38→09:22)
[2021-12-30] MEDS ORDERED: PIPERACILLIN/TAZOBACTAM 3.375 GM VIAL IVPB ONE ×2 (00:38→09:22)
[2021-12-30] MEDS: PIPERACILLIN/TAZOB 3.375 GM 3.375 GM in DEXTROSE 5%-WATER - 50 ML IVPB SCH ×3 (02:58→17:48)
[2021-12-30] MEDS: LEVOTHYROXINE NA 50 MCG TABLET (FP) PO SCH (07:05)
[2021-12-30] MEDS: MULTIVITAMINS THER W-MINERALS COMBO TABLET (FP) PO SCH (09:25)
[2021-12-30] MEDS: ZINC SULFATE 220 MG CAPSULE (FP) PO SCH (09:25)
[2021-12-30] MEDS: AMINO ACIDS/PROTEIN HYDROLYS 30 ML LIQUID.PKT PO SCH ×2 (09:25→16:55)
[2021-12-30] MEDS: DONEPEZIL HCL 10 MG TABLET (FP) PO SCH (09:25)
[2021-12-30] MEDS: MEGESTROL ACETATE 400 MG/10 ML UNIT DOSE CUP PO SCH (09:25)
[2021-12-30] MEDS: COLLAGENASE CLOSTRIDIUM HIST. 30 GRAMS TUBE TP SCH (12:55)
[2021-12-30 14:50] VITALS: BP 92/44; PULSE 101; TEMP 98.1
== END 2021-12-30 18:03 | disposition home or self-care (01) | DRG 637 ==
LOC: JER 19:46 → MERGE 20:37 → JERBED 20:37 → J7W 12-25 16:35
PROVIDERS: ADMIT Internal Medicine; ATTEND Internal Medicine
DX: E11.649 Type 2 diabetes mellitus with hypoglycemia without coma (principal); L89.154 Pressure ulcer of sacral region, stage 4; L89.624 Pressure ulcer of left heel, stage 4; E46 Unspecified protein-calorie malnutrition; Z68.1 Body mass index [BMI] 19.9 or less, adult; E11.52 Type 2 diabetes mellitus with diabetic peripheral angiopathy with gangrene; I96 Gangrene, not elsewhere classified; I10 Essential (primary) hypertension; E03.9 Hypothyroidism, unspecified; Z74.01 Bed confinement status; Z79.84 Long term (current) use of oral hypoglycemic drugs; E83.42 Hypomagnesemia; R62.7 Adult failure to thrive; G30.9 Alzheimer's disease, unspecified; F02.80 Dementia in other diseases classified elsewhere, unspecified severity, without behavioral disturbance, psychotic disturbance, mood disturbance, and anxiety; L89.610 Pressure ulcer of right heel, unstageable; D64.9 Anemia, unspecified; D75.839 Thrombocytosis, unspecified; E88.09 Other disorders of plasma-protein metabolism, not elsewhere classified; E87.8 Other disorders of electrolyte and fluid balance, not elsewhere classified
CPT/HCPCS: 36415; 71045-TC-FY; 80053; 81003; 82272; 82607; 82746; 82962; 83735; 84100; 84439; 84443; 84481; 85025; 87040; 87086; 87186; 93005; 93010; 99291; C9803-CS; J1644; J1756; U0003; U0005

== ENCOUNTER 2022-04-08 21:03 | Inpatient (IN) | payer OTHER ==
[2022-04-08] MEDS ORDERED: SODIUM CHLORIDE 0.9% 500 ML INFUS.BAG IV ONE (21:36)
[2022-04-08] MEDS ORDERED: SODIUM CHLORIDE 1,225 ML IV ONE (21:45)
[2022-04-08] MEDS ORDERED: ACETAMINOPHEN 1000 MG/100 ML BAG IVPB ONE (21:51)
[2022-04-08] MEDS ORDERED: PIPERACILLIN/TAZOB 2.25 GM 2.25 GM in DEXTROSE 5%-WATER - 50 ML IVPB ONE (21:52)
[2022-04-08] MEDS ORDERED: VANCOMYCIN 1 GM in D5W (PRE-DOCKED) 1,000 MG/250 ML IVPB ONE (21:52)
[2022-04-08 21:54] LABS: ARTERIAL BLD GAS O2 SATURATION 97.9 % (95-98); ARTERIAL BLOOD GAS BASE EXCESS 0.7 mmol/L (-2-2); ARTERIAL BLOOD GAS PO2 92.9 mmHg (80-100); ARTERIAL BLOOD GAS pH 7.529 (7.350-7.450); BASO % 0.3 % (0-2.0); EOS % 0.1 % (0-4.5); HEMATOCRIT 29.8 % (35.4-49); HEMOGLOBIN 9.2 GM/dL (11.7-16.9); LYMPH % 3.3 % (8-40); MCH 25.3 pg (25.7-33.7); MCHC 30.8 g/dl (32.0-35.9); MEAN CELL VOLUME 82.2 fl (80-96); MONO % 3.3 % (3.8-10.2); PLATELET COUNT 425 10^3/uL (134-434); RBC 3.62 M/mm3 (4.00-5.60)
[2022-04-08 21:56] LABS: WHITE BLOOD COUNT 31.9 K/mm3 (4.0-10.0)
[2022-04-08 22:01] LABS: INR 1.64 (0.83-1.09); PROTHROMBIN TIME (PATIENT) 18.9 SEC (9.7-13.0)
[2022-04-08 22:04] LABS: ACTIVATED PTT 25.3 SECONDS (25.2-36.5)
[2022-04-08 22:14] LABS: CALCIUM 8.1 mg/dL (8.5-10.1)
[2022-04-08 22:16] LABS: ALBUMIN 1.6 g/dl (3.4-5.0); BLOOD UREA NITROGEN 64.8 mg/dL (7-18)
[2022-04-08 22:18] LABS: CREATININE 1.6 mg/dL (0.55-1.3)
[2022-04-08 22:20] LABS: BILIRUBIN,TOTAL 0.4 mg/dL (0.2-1); TOT PROT 5.2 g/dl (6.4-8.2)
[2022-04-08 22:23] LABS: LACTIC ACID 2.9 mmol/L (0.4-2.0)
[2022-04-08] MEDS ORDERED: ACETAMINOPHEN INJECTION 100 ML IVPB ONE (22:25)
[2022-04-08 22:26] LABS: ANISOCYTOSIS 2+; MACROCYTOSIS 0; TARGET CELLS 1+
[2022-04-08] MEDS ORDERED: PIPERACILLIN/TAZOB 2.25 GM 2.25 GM/50 ML BAG IVPB ONE (23:41)
[2022-04-09] MEDS ORDERED: VANCOMYCIN/WATER FOR INJ (PEG) 1,000 MG/200 ML BAG IVPB ONE ×2 (00:26→23:04)
[2022-04-09] MEDS ORDERED: CLINDAMYCIN 600MG PREMIX IVPB 600 MG/50 ML BAG IVPB ONE ×4 (01:31→17:05)
[2022-04-09] MEDS ORDERED: SODIUM CHLORIDE 500 ML IV STA (01:40)
[2022-04-09] MEDS ORDERED: SODIUM CHLORIDE 0.9% 500 ML INFUS.BAG IV ONE (02:44)
[2022-04-09 03:10] LABS: MAGNESIUM 2.3 mg/dL (1.8-2.4)
[2022-04-09 03:14] LABS: PHOSPHOROUS 3.9 mg/dL (2.5-4.9)
[2022-04-09 03:29] LABS: LACTIC ACID 2.7 mmol/L (0.4-2.0)
[2022-04-09] MEDS ORDERED: ACETAMINOPHEN 1000 MG/100 ML BAG IVPB PRN (04:00)
[2022-04-09] MEDS ORDERED: LACTATED RINGERS SOLUTION 1000 ML INFUS.BAG IV ONE (04:10)
[2022-04-09] MEDS: DEXTROSE 5%-NORMAL SALINE 1,000 ML IV SCH (08:11)
[2022-04-09] MEDS ORDERED: PIPERACILLIN/TAZOB 2.25 GM 2.25 GM/50 ML BAG IVPB ONE ×2 (08:26→17:04)
[2022-04-09] MEDS: PIPERACILLIN/TAZOB 2.25 GM 2.25 GM in DEXTROSE 5%-WATER - 50 ML IVPB SCH ×2 (09:22→17:12)
[2022-04-09 09:41] LABS: HEMATOCRIT 25.3 % (35.4-49); HEMOGLOBIN 7.7 GM/dL (11.7-16.9); MCH 25.4 pg (25.7-33.7); MCHC 30.4 g/dl (32.0-35.9); MEAN CELL VOLUME 83.4 fl (80-96); MEAN PLT VOLUME 8.4 fl (7.5-11.1); PLATELET COUNT 282 10^3/uL (134-434); RBC 3.04 M/mm3 (4.00-5.60)
[2022-04-09] MEDS ORDERED: LEVOTHYROXINE SODIUM 100 MCG VIAL IVPUSH SCH ×2 (10:00→12:30)
[2022-04-09] MEDS: CLINDAMYCIN 600MG PREMIX IVPB 600 MG/50 ML BAG IVPB SCH ×2 (10:01→18:23)
[2022-04-09 10:05] LABS: MAGNESIUM 2.1 mg/dL (1.8-2.4)
[2022-04-09 10:44] LABS: ANISOCYTOSIS 3+; MACROCYTOSIS 0
[2022-04-09 10:49] LABS: PHOSPHOROUS 3.6 mg/dL (2.5-4.9)
[2022-04-09] MEDS ORDERED: IRON SUCROSE INJECTION 200 MG in SODIUM CHLORIDE 90 ML IVPB ONE (12:30)
[2022-04-09] MEDS ORDERED: VANCOMYCIN/WATER FOR INJ (PEG) 750 MG/150 ML BAG IVPB ONE (22:00)
[2022-04-10] MEDS: DEXTROSE 5%-NORMAL SALINE 1,000 ML IV SCH (01:37)
[2022-04-10] MEDS ORDERED: CLINDAMYCIN 600MG PREMIX IVPB 600 MG/50 ML BAG IVPB ONE (03:09)
[2022-04-10] MEDS ORDERED: PIPERACILLIN/TAZOB 2.25 GM 2.25 GM/50 ML BAG IVPB ONE ×2 (03:09→11:14)
[2022-04-10] MEDS: CLINDAMYCIN 600MG PREMIX IVPB 600 MG/50 ML BAG IVPB SCH ×2 (03:21→11:15)
[2022-04-10] MEDS: PIPERACILLIN/TAZOB 2.25 GM 2.25 GM in DEXTROSE 5%-WATER - 50 ML IVPB SCH ×2 (04:47→11:15)
[2022-04-10 07:16] LABS: HEMATOCRIT 25.2 % (35.4-49); HEMOGLOBIN 7.5 GM/dL (11.7-16.9); MCH 24.9 pg (25.7-33.7); MEAN CELL VOLUME 83.1 fl (80-96); MEAN PLT VOLUME 9.5 fl (7.5-11.1); PLATELET COUNT 267 10^3/uL (134-434); RBC 3.03 M/mm3 (4.00-5.60); RDW 17.3 % (11.9-15.9)
[2022-04-10 07:17] LABS: WHITE BLOOD COUNT 30.3 K/mm3 (4.0-10.0)
[2022-04-10 07:45] LABS: BLOOD UREA NITROGEN 75.3 mg/dL (7-18)
[2022-04-10 07:46] LABS: ALBUMIN 1.3 g/dl (3.4-5.0); CALCIUM 7.3 mg/dL (8.5-10.1)
[2022-04-10 07:49] LABS: CREATININE 1.8 mg/dL (0.55-1.3)
[2022-04-10 07:50] LABS: BILIRUBIN,TOTAL 0.5 mg/dL (0.2-1); TOT PROT 4.3 g/dl (6.4-8.2)
[2022-04-10 09:56] LABS: ANISOCYTOSIS 0; HELMET CELLS 0; HOWELL-JOLLY BODIES 0; MACROCYTOSIS 0; OVALOCYTE 0; ROULEAU 0; SICKELED CELLS 0; TARGET CELLS 0; TEAR DROP CELLS 0; TOXIC GRANULATION 0
[2022-04-10] MEDS: LEVOTHYROXINE SODIUM 100 MCG VIAL IVPUSH SCH (10:00)
[2022-04-10] MEDS ORDERED: PIPERACILLIN/TAZOB 3.375 GM 3.375 GM/50 ML BAG IVPB ONE ×3 (11:27→18:24)
[2022-04-10] MEDS: PIPERACILLIN/TAZOB 3.375 GM 3.375 GM in DEXTROSE 5%-WATER - 50 ML IVPB SCH ×2 (11:37→18:29)
[2022-04-10] MEDS ORDERED: VANCOMYCIN/WATER FOR INJ (PEG) 1,000 MG/200 ML BAG IVPB ONE ×2 (12:13)
[2022-04-10] MEDS: VANCOMYCIN/WATER FOR INJ (PEG) 1,000 MG/200 ML BAG IVPB SCH ×2 (12:14→12:21)
[2022-04-10] MEDS ORDERED: DEXTROSE 5%-NORMAL SALINE 1,000 ML IV SCH (14:13)
[2022-04-10 20:43] VITALS: BMI 16.5
[2022-04-10] MEDS ORDERED: VANCOMYCIN/WATER FOR INJ (PEG) 750 MG/150 ML BAG IVPB SCH (22:00)
[2022-04-11] MEDS: PIPERACILLIN/TAZOB 3.375 GM 3.375 GM in DEXTROSE 5%-WATER - 50 ML IVPB SCH ×2 (01:40→09:13)
[2022-04-11] MEDS: LEVOTHYROXINE SODIUM 100 MCG VIAL IVPUSH SCH (06:23)
[2022-04-11] MEDS ORDERED: ACETAMINOPHEN 1000 MG/100 ML BAG IVPB PRN (12:29)
[2022-04-11] MEDS: VANCOMYCIN/WATER FOR INJ (PEG) 1,000 MG/200 ML BAG IVPB SCH (12:35)
[2022-04-11 12:37] LABS: CHLORIDE 131 mmol/L (98-107)
[2022-04-11 12:38] LABS: HEMATOCRIT 29.9 % (35.4-49); HEMOGLOBIN 8.4 GM/dL (11.7-16.9); MCH 24.4 pg (25.7-33.7); MCHC 28.1 g/dl (32.0-35.9); MEAN CELL VOLUME 86.8 fl (80-96); MEAN PLT VOLUME 9.9 fl (7.5-11.1); PLATELET COUNT 244 10^3/uL (134-434); RBC 3.44 M/mm3 (4.00-5.60)
[2022-04-11 12:39] LABS: WHITE BLOOD COUNT 65.4 K/mm3 (4.0-10.0)
[2022-04-11 12:41] LABS: ALBUMIN 1.3 g/dl (3.4-5.0); BLOOD UREA NITROGEN 81.5 mg/dL (7-18); CALCIUM 7.7 mg/dL (8.5-10.1); CO2 18 mmol/L (21-32); GLUCOSE,RANDOM 274 mg/dL (74-106)
[2022-04-11 12:43] LABS: CREATININE 2.5 mg/dL (0.55-1.3); SGOT/AST 37 U/L (15-37); SGPT/ALT 30 U/L (13-61)
[2022-04-11 12:45] LABS: BILIRUBIN,TOTAL 0.6 mg/dL (0.2-1); TOT PROT 4.5 g/dl (6.4-8.2)
[2022-04-11] MEDS: MORPHINE SULFATE/0.9% NACL/PF 100 MG/100 ML BAG IVPB SCH (12:48)
[2022-04-11 12:51] LABS: ALK PHOS 307 U/L (45-117); ANION GAP 14 MMOL/L (8-16); SODIUM 163 mmol/L (136-145)
[2022-04-11 13:01] LABS: ANISOCYTOSIS 2+; MACROCYTOSIS 0
[2022-04-12 05:55] VITALS: TEMP 99.6
[2022-04-12] MEDS: LEVOTHYROXINE SODIUM 100 MCG VIAL IVPUSH SCH (06:06)
[2022-04-12] MEDS: MORPHINE SULFATE/0.9% NACL/PF 100 MG/100 ML BAG IVPB SCH (07:57)
[2022-04-12 10:02] VITALS: BP 54/29; PULSE 134; RESP 18
== END 2022-04-12 15:09 | disposition expired | DRG 871 ==
LOC: JER 21:03 → JERBED 21:46 → J6S 04-10 20:00
PROVIDERS: ADMIT Internal Medicine; ATTEND Internal Medicine
DX: A41.9 Sepsis, unspecified organism (principal); E43 Unspecified severe protein-calorie malnutrition; L89.154 Pressure ulcer of sacral region, stage 4; R53.2 Functional quadriplegia; M72.6 Necrotizing fasciitis; R64 Cachexia; N17.9 Acute kidney failure, unspecified; E87.0 Hyperosmolality and hypernatremia; E11.52 Type 2 diabetes mellitus with diabetic peripheral angiopathy with gangrene; Z68.1 Body mass index [BMI] 19.9 or less, adult; M86.8X8 Other osteomyelitis, other site; E87.20 Acidosis, unspecified; E11.9 Type 2 diabetes mellitus without complications; I10 Essential (primary) hypertension; E03.9 Hypothyroidism, unspecified; Z74.01 Bed confinement status; E86.0 Dehydration; G30.9 Alzheimer's disease, unspecified; F02.80 Dementia in other diseases classified elsewhere, unspecified severity, without behavioral disturbance, psychotic disturbance, mood disturbance, and anxiety; K21.9 Gastro-esophageal reflux disease without esophagitis; I73.9 Peripheral vascular disease, unspecified; D64.9 Anemia, unspecified; Z86.73 Personal history of transient ischemic attack (TIA), and cerebral infarction without residual deficits; Z79.84 Long term (current) use of oral hypoglycemic drugs; R65.20 Severe sepsis without septic shock; Z66 Do not resuscitate; L89.200 Pressure ulcer of unspecified hip, unstageable; L89.320 Pressure ulcer of left buttock, unstageable; E11.69 Type 2 diabetes mellitus with other specified complication; L89.620 Pressure ulcer of left heel, unstageable; L89.610 Pressure ulcer of right heel, unstageable; I12.9 Hypertensive chronic kidney disease with stage 1 through stage 4 chronic kidney disease, or unspecified chronic kidney disease; E11.22 Type 2 diabetes mellitus with diabetic chronic kidney disease; N18.9 Chronic kidney disease, unspecified
CPT/HCPCS: 0241U-QW; 36415; 36600; 71045-TC-FY; 72192-TC; 73630-TC-LT; 73630-TC-RT-FY; 80053; 82550; 82553; 82803; 82962; 83605; 83735; 84100; 84439; 84443; 84484; 85025; 85610; 85651; 85730; 86140; 86850; 86900; 86901; 87040; 87070; 87076; 87186; 87205; 93005; 93010; 99285-25; E0372; J1756